=== PATIENT | female | born 1935 | race American Indian/Alaskan Native ===

== ENCOUNTER 2016-04-27 12:39 | Observation (INO) | payer MEDICARE ==
[2016-04-27 12:40] VITALS: BMI 38.2
[2016-04-27 14:41] LABS: MEAN CORPUSCULAR HGB CONC 33.1 g/dL (33.0-37.0); MONO # 0.3 K/uL (0.0-0.8)
[2016-04-27 14:51] LABS: CHLORIDE 104 mmol/L (98-107); SODIUM 140 mmol/L (132-148)
[2016-04-27 14:52] LABS: BASO # 0.1 K/uL (0.0-0.2); BASO % 1.6 % (0.0-2.0); EOS # 0.1 K/uL (0.0-0.7); EOS % 2.6 % (0.0-4.0); HEMATOCRIT 33.4 % (34.0-47.0); LYMPH # 1.6 K/uL (1.0-4.3); LYMPH % 29.4 % (20.0-40.0); MEAN PLATELET VOLUME 9.6 fL (7.2-11.7); NRBC % 0.1 % (0.0-2.0); RED CELL DISTRIBUTION WIDTH 15.8 % (11.5-14.5); WHITE BLOOD COUNT 5.3 K/uL (4.8-10.8)
[2016-04-27 14:53] LABS: ALKALINE PHOSPHATASE 63 U/L (38-126); AST/SGOT 30 U/L (14-36); BILIRUBIN,TOTAL 0.8 mg/dL (0.2-1.3); BLOOD UREA NITROGEN 14 mg/dL (7-17); CARBON DIOXIDE 27 mmol/L (22-30); CHOLESTEROL 210 mg/dL (0-199); GFR AFRICAN-AMERICAN > 60; GLUCOSE,RANDOM 68 mg/dL (65-105); TOTAL PROTEIN 7.1 g/dL (6.3-8.3)
[2016-04-27 14:54] LABS: ALT/SGPT 29 U/L (9-52); CALCIUM 8.7 mg/dl (8.6-10.4)
[2016-04-27 14:55] LABS: MEAN CELL VOLUME 84.5 fL (81.0-99.0)
--- NOTE | 2016-04-27 14:56 | CT ---
PROCEDURE: CT HEAD WITHOUT CONTRAST. HISTORY: L facial/body parasthesias x 4 days COMPARISON: Comparison CT scan 09/01/2014 TECHNIQUE: Axial computed tomography images were obtained through the head/brain without intravenous contrast. Radiation dose: Total exam DLP = 893.33 mGy-cm. FINDINGS: HEMORRHAGE: No intracranial hemorrhage. BRAIN: Suspect minimal chronic periventricular white matter ischemic changes. 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 Moderate generalized volume loss. Minor vascular calcifications present. VENTRICLES: Ex vacuo dilatation of the ventricles however no evidence of obstructive hydrocephalus. CALVARIUM: Unremarkable in the at. PARANASAL SINUSES: Unremarkable as visualized. No significant inflammatory changes. MASTOID AIR CELLS: Unremarkable as visualized. No inflammatory changes. OTHER FINDINGS: Findings consistent with mild exophthalmos. Orbits and contents otherwise appear unremarkable. IMPRESSION: No acute intracranial hemorrhage. Suspect minor chronic periventricular white matter ischemic changes.
--- NOTE | 2016-04-27 14:58 | C.PDOC ---
History Of Present Illness Patient is a 80 y/o female that presents to the ED for evaluation of left facial and left body paresthesia for the last 4 days. Patient reports being seen by her PMD 5 days ago, and was diagnosed with arthritis. Denies being prescribed any new meds. Patient also complains of left shoulder pain. Otherwise , denies any chest pain, shortness of breath, headache, dizziness, or any other associated symptoms at this time. Time Seen by Provider: 04/27/16 13:09 Chief Complaint (Nursing): Weakness/Neurological Deficit History Per: Patient History/Exam Limitations: no limitations Onset/Duration Of Symptoms: Days Current Symptoms Are (Timing): Still Present Recent travel outside of the [place]: No Additional History Per: Patient Past Medical History Reviewed: Historical Data, Nursing Documentation, Vital Signs Vital Signs: Last Vital Signs Temp 98.3 F 04/27/16 12:43 Pulse 83 04/27/16 15:17 Resp 20 04/27/16 15:17 BP 118/61 04/27/16 15:17 Pulse Ox 98 04/27/16 15:35 - Medical History PMH: Arthritis, GERD Denies: Chronic Kidney Disease Surgical History: Endoscopy - [facility] Procedures ESOPHAGOGASTRODUODENOSCOPY [EGD] W/CLOSED BIOPSY (05/03/13) Family History: States: Unknown Family Hx - Social History Hx Tobacco Use: No Hx Alcohol Use: No Hx Substance Use: No - Immunization History Hx Tetanus Toxoid Vaccination: Yes Hx Influenza Vaccination: Yes (2014) Hx Pneumococcal Vaccination: Yes (2014) Review Of Systems Except As Marked, All Systems Reviewed And Found Negative. Constitutional: Negative for: Fever, Chills Cardiovascular: Negative for: Chest Pain, Palpitations Respiratory: Negative for: Cough, Shortness of Breath Gastrointestinal: Negative for: Nausea, Vomiting, Abdominal Pain Musculoskeletal: Positive for: Shoulder Pain (left) Neurological: Positive for: Numbness (left side of body; left facial paresthesia ). Negative for: Headache, Dizziness Physical Exam - Physical Exam Appears: Non-toxic, No Acute Distress Skin: Normal Color, Warm, Dry Head: Atraumatic, Normacephalic Eye(s): bilateral: Normal Inspection, EOMI Neck: Normal ROM, Supple Chest: Symmetrical, No Tenderness Cardiovascular: Rhythm Regular, No Murmur Respiratory: Normal Breath Sounds, No Rales, No Rhonchi, No Wheezing Gastrointestinal/Abdominal: Soft, No Tenderness Extremity: Normal ROM, No Deformity, No Swelling Extremity: Bilateral: Atraumatic, Normal Color And Temperature Neurological/Psych: Oriented x3, Normal Speech, Normal Cognition, Normal Cranial Nerves, Normal Motor, Normal Sensation, Normal Reflexes, Other (neuro intact) ED Course And Treatment - Laboratory Results Result Diagrams: 04/27/16 14:28 04/27/16 14:28 Lab Interpretation: Normal (trop neg) ECG: Interpreted By Sd ECG Rhythm: Sinus Rhythm ECG Interpretation: Normal Rate From EC O2 Sat by Pulse Oximetry: 98 Pulse Ox Interpretation: Normal - Radiology CXR: Interpreted by Sd CXR Interpretation: Yes: No Acute Disease - Other Rad head CT X-Ray: Read By Radiologist (no acute findings) Progress Note: Labs, EKG, CXR, head CT ordered and reviewed. Patient was treated with Aspirin PO in the ER. Reevaluation Time: 15:15 Reassessment Condition: Unchanged (remains normal exam) - Physician Consult Information Outcome Of Conversation: 1500: d/w Dr. De Los Santos covering Dr. Minor Pink's pt's, ok to tele obs. NIHSS Stroke Scale - Date/Time Evaluation Performed Date Performed: 04/27/16 Time Performed: 13:00 - How Severe is the Stoke Level of Consciousness: 0=Alert LOC to Questions: 0=Both comments correct LOC to commands: 0=Obeys both correctly Best Gaze: 0=Normal Visual: 0=No visual loss Facial: 0=Normal Motor Arm - Left: 0=No drift Motor Arm - Right: 0=No drift Motor Leg - Left: 0=No drift Motor Leg - Right: 0=No drift Limb Ataxia: 0=Absent Sensory: 0=Normal Best Language: 0=No aphasia Dysarthia: 0=Normal articulation Extinction & Inattention (Neglect): 0=Normal, no object Score: 0 Severity Of Stroke: 0= No Stroke rTPA Inclusion/Exclusion - Refusal of Treatment Patient Refused Treatment: No - Inclusion Criteria for Altepase Patient is 18 years or Older: Yes The Clinical Diagnosis of Ischemic Stroke That is Causing a Potentially Disabling Neurological Deficit: No Time of Onset is Well Established to be Less Than 270 Minute Before Treatment Would Begin: No Risk/Benefit Discussed With Patient/Family Member Present: No - Exclusion Criteria for Altepase Uncontrolled Hypertension at Time of Treatment (Systolic BP above 185 or Diastolic BP above 110 mmHg): No Known Bleeding Diathesis Including but Not Limited to: Platelets Below 100,000/ mm,PTT Above 40 sec After Heparin Use, Current Use of Oral Anitcoagulant With INR Greater Than 1.7 or PT Greater Than 15 secs: No Evidence of an Intracranial Hemorrhage: No Evidence of Major Acute Infarct With Signs Greater Than 1/3 MCA Territory: No Suspicion of Subarachnoid Hemorrhage on Pretreatment Evaluation Even if CT Head Negative For Hemorrhage: No - Warning to TPA With Conditions Condition: Stroke Serevity Too Mild Medical Decision Making Medical Decision Makin days L facial/shoulder parasthesias h/o L shoulder arthritis- recent dx, ? related. normal neuro exam and w/u pt prefers to stay inpt for MRI and neuro consult. Disposition Doctor Will See Patient In The: Hospital Counseled Patient/Family Regarding: Studies Performed, Diagnosis - Disposition Disposition: HOSPITALIZED Disposition Time: 15:16 Condition: GOOD - Clinical Impression Clinical Impression: Facial paresthesia - Scribe Statement The provider has reviewed the documentation as recorded by the Jacob Xiao Provider Attestation: All medical record entries made by the Jacob were at my direction and personally dictated by me. I have reviewed the chart and agree that the record accurately reflects my personal performance of the history, physical exam, medical decision making, and the department course for this patient. I have also personally directed, reviewed, and agree with the discharge instructions and disposition.
[2016-04-27 15:01] LABS: RBC URINE 2 /hpf (0-3); URINE BACTERIA RARE (<OCC); URINE BILIRUBIN NEGATIVE (NEGATIVE); URINE BLOOD NEGATIVE (NEGATIVE); URINE COLOR Straw (YELLOW); URINE GLUCOSE (UA) NORMAL (Normal); URINE KETONE NEGATIVE (NEGATIVE); URINE LEUKOCYTE ESTERASE 1+ Leu/uL (Negative); URINE PROTEIN NEGATIVE (NEGATIVE); URINE UROBILINOGEN NORMAL mg/dL (0.2-1.0); WBC URINE 4 /hpf (0-5)
--- NOTE | 2016-04-27 16:56 | RAD ---
HISTORY: adm COMPARISON: Comparison chest 10/12/2016 FINDINGS: LUNGS: Poor inspiration with low lung volumes, mild crowded bronchovascular markings and mild bibasilar atelectasis left greater than right PLEURA: No significant pleural effusion identified, no pneumothorax apparent. CARDIOVASCULAR: Heart size is upper limits of normal. Aorta is slightly ectatic and uncoiled. OSSEOUS STRUCTURES: No significant abnormalities. VISUALIZED UPPER ABDOMEN: Normal. OTHER FINDINGS: None. IMPRESSION: Poor inspiration with low lung volumes, mild crowded bronchovascular markings and mild bibasilar atelectasis left greater than right
[2016-04-28] MEDS: Pantoprazole 40 mg EC Tab PO SCH (11:02)
--- NOTE | 2016-04-28 13:11 | CP.PCM.HP ---
History of Present Illness - History of Present Illness History of Present Illness: COMPREHENSIVE HISTORY & PHYSICAL EXAM HPI PRESENTED TO FOR NUMBNESS AND ALTERED SENSATION ON LEFT SIDE OF FACE AND BODY . NO DEFINITE WEAKNESS . CT HEAD NEG . NO LOC . NO SEIZURES PAST HIST. HAD SIMILAR COMPLAINTS IN 2013, ALL NEUROLOGY W/U WAS NEG. PERSONAL HIST: Smoking. N Alcohol. N Allergy N Travel_- . FAMILY HIST : ROS : Constitutional: Negative for weight change, chills, night sweats, fatigue and usage of assist device. Eyes: Negative for redness, swelling, itching, discharge, vision changes, blurry vision, double vision, glaucoma, cataracts, Ears: Negative for hearing loss, ringing, , tinnitus, vertigo Nose: Negative for rhinorrhea, stuffiness, sniffing, itching, postnasal drip, discoloration, nasal congestion and epistaxis. Throat: Negative for throat clearing, sore throat, hoarseness, difficulty swallowing and difficulty speaking. Respiratory: Negative for cough, chest tightness, sputum or phlegm, chronic cough, hemoptysis, wheezing, snoring at night, pleuritic chest pain and daytime somnolence. Cardiovascular: Negative for chest pain, palpitations, orthopnea, PND, Edema of legs, leg cramps, angina, claudication, syncope, irregular heartbeat, Neurology: Negative for irritability, muscle weakness, seizures, tremors, migraines, dizziness/vertigo, slurred speech, syncope, memory loss, mood changes , recurrent headaches Gastrointestinal: Negative for difficulty swallowing, diarrhea, constipation, black stools, rectal bleeding, nausea, flatulence, reflux, poor appetite, changes in bowel habits, abdominal pain Genitourinary: Negative for frequent urination, hematuria, discharge, incontinence, urinary retention, frequent UTI, Psychiatric: Negative for depression, anxiety/panic, suicidal tendencies, Musculoskeletal: Negative for swollen joints, back pain, , neck pain, morning stiffness of joints, . Skin: Negative for rash, ulcers, itching, dry skin and pigmented lesions. P/E: Constitutional: Appears stated age and in no apparent distress. Head: Normocephalic. Ears: External ear canals patent without inflammation. Tympanic membranes intact with normal light reflex and landmark. Eyes: Pupils are central, bilaterally equal, symmetrical and reacts to light with normal movements and no icterus or pallor. Nose: External nares are patent. Mucosa is pink Mouth-Throat: Good general appearance and condition. No post-pharyngeal/oropharyngeal erythema and tonsillar hypertrophy. Good dental hygiene. Neck-Lymphatic: Neck is supple with normal ROM, no thyromegaly, lymph nodes or masses. JVD is normal with no carotid bruit. Lungs: Clear to percussion and auscultation with bilateral normal air entry. Cardiovascular: S1 and S2 are normal with no murmurs, gallops and rub. GI Exam: No hepatomegaly. Abdomen is soft and non-tender. No Organomegaly , masses or hernias are evident and bowel sounds are normal and active. Neurology: Higher function and all cranial nerves intact, with no gross motor or sensory deficit. Superficial and deep reflexes are normal with downwards planters. No cerebellar deficit with normal gait. Musculoskeletal: No tender spots with normal curvature of the spine with no swelling or restricted ROM of the small and large joints. Extremities: Homans sign absent. Intact pulses with no pitting edema, calf tenderness or skin color changes. Skin: No rash, eruptions or abnormal skin pigmentation LAB/RADIOLOGY: ASSESMENT : 1 TIA/ SENSORY CORTEX 2 HTN 3 4 PLAN : BASE LINE NEURO W/U Present on Admission - Present on Admission Any Indicators Present on Admission: No Past Patient History - Infectious Disease Hx of Infectious Diseases: None - Past Medical History & Family History Past Medical History?: Yes - Past Social History Smoking Status: Never Smoked - CARDIAC Hx Cardiac Disorders: No - PULMONARY Hx Respiratory Disorders: No - NEUROLOGICAL Hx Neurological Disorder: No - HEENT Hx HEENT Problems: Yes Hx Cataracts: Yes (BOTH EYES) - RENAL Hx Chronic Kidney Disease: No - ENDOCRINE/METABOLIC Hx Endocrine Disorders: No - HEMATOLOGICAL/ONCOLOGICAL Hx Blood Disorders: No - INTEGUMENTARY Hx Dermatological Problems: No - MUSCULOSKELETAL/RHEUMATOLOGICAL Hx Arthritis: Yes - GASTROINTESTINAL Hx Gastrointestinal Disorders: Yes Hx Gastroesophageal Reflux: Yes HX Swallowing Problems: Yes (FOOD STuCK IN MID CHEST FEELING) - GENITOURINARY/GYNECOLOGICAL Hx Genitourinary Disorders: No - PSYCHIATRIC Hx Psychophysiologic Disorder: No Hx Substance Use: No - SURGICAL HISTORY Hx Surgeries: Yes Hx Hysterectomy: Yes Hx Joint Replacement: Yes (rt knee replacement 2004) Other/Comment: right knee replacement - ANESTHESIA Hx Anesthesia: Yes Hx Anesthesia Reactions: No Hx Malignant Hyperthermia: No Meds Allergies/Adverse Reactions: Allergies Allergy/AdvReac Type Severity Reaction Status Date / Time No Known Allergies Allergy Verified 04/27/16 12:40 Results - Vital Signs Recent Vital Signs: Last Vital Signs Temp 98.2 F 04/28/16 07:45 Pulse 93 H 04/28/16 12:38 Resp 18 04/28/16 07:45 BP 126/80 04/28/16 07:45 Pulse Ox 98 04/28/16 12:38 - Labs Result Diagrams: 04/27/16 14:28 04/27/16 14:28 Labs: Laboratory Results - last 24 hr 04/27/16 04/27/16 04/27/16 15:25 16:10 16:21 PT 10.8 INR 1.0 APTT 33 POC Glucose (mg/dL) 66 109 04/27/16 04/27/16 04/28/16 18:25 21:49 06:20 PT INR APTT POC Glucose (mg/dL) 87 108 70 04/28/16 11:53 PT INR APTT POC Glucose (mg/dL) 76
[2016-04-28] MEDS ORDERED: Gadodiamide 287 mg/ml 20 ml IV ONE (14:06)
--- NOTE | 2016-04-28 15:27 | MRI ---
PROCEDURE: MRI BRAIN WITH AND WITHOUT CONTRAST HISTORY: tia COMPARISON: None. TECHNIQUE: Multiplanar, multisequence MR images of the brain were obtained with and without intravenous contrast enhancement. FINDINGS: HEMORRHAGE: None DWI: No evidence of an acute or early subacute infarction. BRAIN PARENCHYMA: No mass,mass effect or edema. Few scattered foci of white matter signal abnormality which are nonspecific but statistically most likely secondary to microvascular ischemic disease. ENHANCEMENT: No abnormal intracranial enhancement. VENTRICLES: Unremarkable. No hydrocephalus. CRANIUM: Unremarkable. ORBITS: Grossly unremarkable. PARANASAL SINUSES/MASTOIDS: Clear VASCULAR SYSTEM: Skull base flow voids intact. OTHER FINDINGS: None . IMPRESSION: Few scattered foci of white matter signal abnormality which are nonspecific but statistically most likely secondary to microvascular ischemic disease.
[2016-04-29] MEDS: Pantoprazole 40 mg EC Tab PO SCH (09:04)
--- NOTE | 2016-04-29 11:29 | CP.PCM.PN ---
Subjective - Date & Time of Evaluation Date of Evaluation: 04/29/16 Time of Evaluation: 11:27 - Subjective Subjective: CHIEF COMPLAINTS TODAY : L. SHOULDER PAIN , UNABLE TO MOVE ROS. HEENT : N. Resp : No cough, wheezing ,pleuritic CP ,or hemoptysis Cardio : No anginal CP, PND, orthopnea, palpitation GI : No abd.pain, n/v ,diarrhea or GI bleeding . SPEECH THERAPY ASSISTANT : No headache, vertigo, focal deficit. Musculoskel : No joint swelling , LT. SH. PAIN Derm : No rash Psych : Normal affect. Ext : No swelling ,calf pain PE. Pt. is alert awake in no distress. V.S As noted in the chart Head ,ear nose,throat and eyes : Normal. Neck : Supple with normal carotids. Lungs: Clear air entry. Heart : S1 & S2 normal with S4. No murmur. Abd : Soft non tender with normal bowel sounds. Neuro : Moves all ext. with no localized deficit. Ext : No edema with intact pulses.Non tender calves L. SHOULDER MINIMAL ROM, PAINFUL Derm : No rashes or decubitus ulcer. LABS/RADIOLOGY: MRI HEAD NEG ASSESSMENT/PLAN : CHECK EEG XRAY L. SH. Objective - Vital Signs/Intake and Output Vital Signs (last 24 hours): Temp Pulse Resp BP Pulse Ox 98.0 F 92 H 19 127/73 98 04/29/16 07:24 04/29/16 08:00 04/29/16 07:24 04/29/16 07:24 04/29/16 07:24 Intake and Output: 04/28/16 04/29/16 23:59 11:59 Intake Total 600 240 Balance 600 240 - Medications Medications: Current Medications Aspirin (Aspirin) 325 mg PO DAILY [facility] Last Admin: 04/29/16 09:05 Dose: 325 mg Heparin Sodium (Porcine) (Heparin) 5,000 units SC Q12 [facility] Last Admin: 04/29/16 09:04 Dose: 5,000 units Pantoprazole Sodium (Protonix Ec Tab) 40 mg PO DAILY [facility] Last Admin: 04/29/16 09:04 Dose: 40 mg - Labs Labs: PT 10.8 SECONDS (9.7-12.2) 04/27/16 16:21 INR 1.0 04/27/16 16:21 APTT 33 SECONDS (21-34) 04/27/16 16:21
--- NOTE | 2016-04-29 12:51 | VASCLAB ---
PROCEDURE: HISTORY: TIA COMPARISON: None available. TECHNIQUE: Grayscale and duplex Doppler evaluation of the cervical carotid and vertebral arteries were performed. The common carotid, carotid bifurcations and cervical Internal Carotid Artery (ICA) and proximal External Carotid Artery (ECA) were evaluated. The vertebral arteries were evaluated for gross patency and flow direction. Report prepared by Jose Miguel Crespo, BS, RVT FINDINGS: RIGHT CAROTID ARTERIES: 1. Common Carotid Artery: No significant focal plaque formation of the right common carotid artery. Maximum Peak Systolic velocity: 75 cm/sec: End-diastolic velocity 16 cm/sec. 2. Carotid Bifurcation: Calcific plaque formation. Maximum Peak Systolic velocity: 59 cm/sec: End-diastolic velocity 15 cm/sec. 3. Internal Carotid Artery: Plaque description: 3.1. Proximal Segment: Peak systolic velocity 102 cm/sec: End-diastolic velocity 28 cm/sec - % stenosis 0-15% 3.2. Middle Segment: Peak systolic velocity 76 cm/sec: End-diastolic velocity 21 cm/sec - % stenosis 0-15% 3.3. Distal Segment: Peak systolic velocity 85 cm/sec: End-diastolic velocity 27 cm/sec - % stenosis 0-15% 4. External Carotid Artery: No significant focal plaque formation. Peak systolic velocity 59 cm/sec 5. ICA/CCA Ratio: 1.4 LEFT CAROTID ARTERIES: 1. Common Carotid Artery: No significant focal plaque formation of the left common carotid artery. Maximum Peak Systolic velocity: 95 cm/sec: End-diastolic velocity 22 cm/sec. 2. Carotid Bifurcation: Calcific plaque formation. Maximum Peak Systolic velocity: 75 cm/sec: End-diastolic velocity 16 cm/sec. 3. Internal Carotid Artery: Minimal plaque formation of the left proximal ICA which does not result in hemodynamically significant stenosis. Plaque description: Calcific 3.1. Proximal Segment: Peak systolic velocity 101 cm/sec: End-diastolic velocity 32 cm/sec - % stenosis 0-15% 3.2. Middle Segment: Peak systolic velocity 69 cm/sec: End-diastolic velocity 23 cm/sec - % stenosis 0-15% 3.3. Distal Segment: Peak systolic velocity 68 cm/sec: End-diastolic velocity 27 cm/sec - % stenosis 0-15% 4. External Carotid Artery: No significant focal plaque formation. Peak systolic velocity 98 cm/sec 5. ICA/CCA Ratio: 1.1 VERTEBRAL ARTERIES: 1. Right Vertebral Artery: The right vertebral artery flow direction is antegrade. 2. Left Vertebral Artery: The left vertebral artery flow direction is antegrade. OTHER FINDINGS: 1. Right Brachial Blood pressure: 158 mmHg. 2. Left Brachial Blood pressure: 150 mmHg. IMPRESSION: RIGHT: Duplex scan does not suggest hemodynamically significant stenosis of the right extracranial carotid arteries. LEFT: Duplex scan does not suggest hemodynamically significant stenosis of the left extracranial carotid arteries.
--- NOTE | 2016-04-29 14:13 | RAD ---
PROCEDURE: Radiographs of the Left Shoulder HISTORY: FROZEN SHOULDER COMPARISON: No prior. FINDINGS: BONES: There is diffuse bone demineralization. There is no acute fracture or bone destruction. Bone alignment is normal. There is subacromion space. JOINTS: There is mild degenerative osteoarthrosis in the acromioclavicular and glenohumeral joints. There are subarticular cystic changes in the humeral head. SOFT TISSUES: Normal. OTHER FINDINGS: None. IMPRESSION: No acute fracture or dislocation. 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 Reduced subacromion space could represent chronic rotator cuff injury.
[2016-04-29 16:03] VITALS: RESP 20
--- NOTE | 2016-04-30 08:01 | CARD ---
APPROVED REPORT EKG Measurement Heart [id number] <Conclusion> Normal sinus rhythm Minimal voltage criteria for LVH, may be normal variant Borderline ECG
[2016-04-30] MEDS: Pantoprazole 40 mg EC Tab PO SCH (10:15)
--- NOTE | 2016-04-30 13:04 | CP.PCM.DIS ---
Provider - Provider Date of Admission: 04/27/16 15:18 Attending physician: Sima De Los Santos MD Time Spent in preparation of Discharge (in minutes): 30 Hospital Course - Lab Results Lab Results: Most Recent Lab Values WBC 5.3 K/uL (4.8-10.8) 04/27/16 14:28 RBC 3.95 Mil/uL (3.80-5.20) 04/27/16 14:28 Hgb 11.1 g/dL (11.0-16.0) 04/27/16 14:28 Hct 33.4 % (34.0-47.0) L 04/27/16 14:28 MCV 84.5 fL (81.0-99.0) D 04/27/16 14:28 MCH 28.0 pg (27.0-31.0) 04/27/16 14:28 MCHC 33.1 g/dL (33.0-37.0) 04/27/16 14:28 RDW 15.8 % (11.5-14.5) H 04/27/16 14:28 Plt Count 178 K/uL (130-400) 04/27/16 14:28 MPV 9.6 fL (7.2-11.7) 04/27/16 14:28 Neut % (Auto) 60.4 % (50.0-75.0) 04/27/16 14:28 Lymph % (Auto) 29.4 % (20.0-40.0) 04/27/16 14:28 Sanders % (Auto) 6.0 % (0.0-10.0) 04/27/16 14:28 Eos % (Auto) 2.6 % (0.0-4.0) 04/27/16 14:28 Baso % (Auto) 1.6 % (0.0-2.0) 04/27/16 14:28 Neut # 3.2 K/uL (1.8-7.0) 04/27/16 14:28 Lymph # 1.6 K/uL (1.0-4.3) 04/27/16 14:28 Sanders # 0.3 K/uL (0.0-0.8) 04/27/16 14:28 Eos # 0.1 K/uL (0.0-0.7) 04/27/16 14:28 Baso # 0.1 K/uL (0.0-0.2) 04/27/16 14:28 PT 10.8 SECONDS (9.7-12.2) 04/27/16 16:21 INR 1.0 04/27/16 16:21 APTT 33 SECONDS (21-34) 04/27/16 16:21 Sodium 140 mmol/L (132-148) 04/27/16 14:28 Potassium 5.0 mmol/L (3.6-5.2) 04/27/16 14:28 Chloride 104 mmol/L (98-107) 04/27/16 14:28 Carbon Dioxide 27 mmol/L (22-30) 04/27/16 14:28 Anion Gap 14 (10-20) 04/27/16 14:28 BUN 14 mg/dL (7-17) 04/27/16 14:28 Creatinine 0.8 MG/DL (0.7-1.2) 04/27/16 14:28 Est GFR ( Amer) > 60 04/27/16 14:28 Est GFR (Non-Af Amer) > 60 04/27/16 14:28 POC Glucose (mg/dL) 89 mg/dL (65-110) 04/30/16 11:26 Random Glucose 68 mg/dL (65-105) 04/27/16 14:28 Hemoglobin A1c 5.4 % (4.2-6.5) 04/27/16 14:28 Calcium 8.7 mg/dl (8.6-10.4) 04/27/16 14:28 Total Bilirubin 0.8 mg/dL (0.2-1.3) 04/27/16 14:28 AST 30 U/L (14-36) 04/27/16 14:28 ALT 29 U/L (9-52) 04/27/16 14:28 Alkaline Phosphatase 63 U/L (38-126) 04/27/16 14:28 Troponin I < 0.0120 ng/mL (0.00-0.120) 04/27/16 14:28 Total Protein 7.1 g/dL (6.3-8.3) 04/27/16 14:28 Albumin 3.5 g/dL (3.5-5.0) 04/27/16 14:28 Globulin 3.6 gm/dL (2.2-3.9) 04/27/16 14:28 Albumin/Globulin Ratio 1.0 (1.0-2.1) 04/27/16 14:28 Triglycerides 50 mg/dL (0-149) 04/27/16 14:28 Cholesterol 210 mg/dL (0-199) H 04/27/16 14:28 LDL Cholesterol Direct 103 mg/dL (0-129) 04/27/16 14:28 HDL Cholesterol 60 mg/dL (30-70) 04/27/16 14:28 Urine Color Straw (YELLOW) 04/27/16 14:28 Urine Clarity Hazy (Clear) 04/27/16 14:28 Urine pH 7.0 (5.0-8.0) 04/27/16 14:28 Ur Specific [place] 1.010 (1.003-1.030) 04/27/16 14:28 Urine Protein Negative mg/dL (NEGATIVE) 04/27/16 14:28 Urine Glucose (UA) Normal mg/dL (Normal) 04/27/16 14:28 Urine Ketones Negative mg/dL (NEGATIVE) 04/27/16 14:28 Urine Blood Negative (NEGATIVE) 04/27/16 14:28 Urine Nitrate Negative (NEGATIVE) 04/27/16 14:28 Urine Bilirubin Negative (NEGATIVE) 04/27/16 14:28 Urine Urobilinogen Normal mg/dL (0.2-1.0) 04/27/16 14:28 Ur Leukocyte Esterase 1+ Kedar/uL (Negative) H 04/27/16 14:28 Urine WBC (Auto) 4 /hpf (0-5) 04/27/16 14:28 Urine RBC (Auto) 2 /hpf (0-3) 04/27/16 14:28 Ur Squamous Epith Cells 7 /hpf (0-5) H 04/27/16 14:28 Urine Bacteria Rare (<OCC) 04/27/16 14:28 - Hospital Course Hospital Course: PRESENTED TO FOR NUMBNESS AND ALTERED SENSATION ON LEFT SIDE OF FACE AND BODY . NO DEFINITE WEAKNESS . CT HEAD NEG . NO LOC . NO SEIZURES PAST HIST. HAD SIMILAR COMPLAINTS IN 2013, ALL NEUROLOGY W/U WAS NEG. CT/MRI/CAROTID U/S WERE NEGATIVE FOR ANY ACUTE PATHOLOGY L. SHOULDER X RAY SHOWED POSSIBLE TENDON RUPTURE PLAN D/C HOME OUT PT PT FOR L. SHOULDER Discharge Plan - Follow Up Plan Condition: GOOD Disposition: HOME/ ROUTINE
--- NOTE | 2016-04-30 13:18 | CP.PCM.PN ---
Objective - Vital Signs/Intake and Output Vital Signs (last 24 hours): Temp Pulse Resp BP Pulse Ox 97.8 F 87 20 119/75 100 04/30/16 07:57 04/30/16 08:05 04/30/16 07:57 04/30/16 07:57 04/30/16 07:57 Intake and Output: 04/30/16 04/30/16 06:59 18:59 Intake Total 240 Balance 240 - Medications Medications: Current Medications Aspirin (Aspirin) 325 mg PO DAILY [facility] Last Admin: 04/30/16 10:14 Dose: 325 mg Heparin Sodium (Porcine) (Heparin) 5,000 units SC Q12 [facility] Last Admin: 04/30/16 10:15 Dose: 5,000 units Pantoprazole Sodium (Protonix Ec Tab) 40 mg PO DAILY [facility] Last Admin: 04/30/16 10:15 Dose: 40 mg - Labs Labs: PT 10.8 SECONDS (9.7-12.2) 04/27/16 16:21 INR 1.0 04/27/16 16:21 APTT 33 SECONDS (21-34) 04/27/16 16:21
[2016-04-30 16:07] VITALS: BP 106/70; PULSE 97; TEMP 97.4; O2SAT 96
== END 2016-04-30 17:30 | disposition home or self-care (01) ==
LOC: C.ER 12:39 → C.9E 15:18 → C.6T 17:58
PROVIDERS: ADMIT Internal Medicine Cardiovascular Disease; ATTEND Internal Medicine Cardiovascular Disease
DX: R20.9 Unspecified disturbances of skin sensation (principal); I10 Essential (primary) hypertension; Z68.38 Body mass index [BMI] 38.0-38.9, adult
CPT/HCPCS: 70450; 70553; 71010; 73030; 80053; 80061; 81001; 82948; 83036; 84484; 85025; 85610; 85730; 93005; 93880; 95812; 97110; 97116; 97162; 97166; 97530; 99285; A9579; G0378; G8978; G8979; G8987; G8988; J1644

== ENCOUNTER 2016-07-23 11:41 | Emergency (ER) | payer MEDICARE ==
[2016-07-23 11:41] VITALS: BMI 38.2
[2016-07-23] MEDS ORDERED: Sodium Chloride 0.9% 500 ML IV ONE ×2 (12:38→13:33)
--- NOTE | 2016-07-23 12:39 | C.PDOC ---
History Of Present Illness 80 year old patient, with a past medical history of arthritis and GERD, presents to the ED complaining of dizziness, weakness, and room spinning sensation since last night. Patient states her symptoms occur with movement of her head. Patient denies facial droop, slurred speech, extremity weakness, shortness of breath, chest pain, cough or fever. Time Seen by Provider: 07/23/16 11:58 Chief Complaint (Nursing): Dizziness/Lightheaded History Per: Patient History/Exam Limitations: no limitations Onset/Duration Of Symptoms: Days (last night) Current Symptoms Are (Timing): Still Present Activity At Onset Of Symptoms: Change In Head Position Fall Associated With With Symptoms: No Past Medical History Reviewed: Historical Data, Nursing Documentation, Vital Signs Vital Signs: Last Vital Signs Temp 98.1 F 07/23/16 11:47 Pulse 100 H 07/23/16 11:47 Resp 18 07/23/16 11:47 BP 133/76 07/23/16 11:47 Pulse Ox 99 07/23/16 15:12 - Medical History PMH: Arthritis, GERD Surgical History: Endoscopy - [facility] Procedures ESOPHAGOGASTRODUODENOSCOPY [EGD] W/CLOSED BIOPSY (05/03/13) Family History: States: No Known Family Hx - Social History Hx Tobacco Use: No Hx Alcohol Use: No Hx Substance Use: No - Immunization History Hx Tetanus Toxoid Vaccination: Yes Hx Influenza Vaccination: Yes (2014) Hx Pneumococcal Vaccination: Yes (2014) Review Of Systems Except As Marked, All Systems Reviewed And Found Negative. Constitutional: Positive for: Weakness. Negative for: Fever Cardiovascular: Negative for: Chest Pain Respiratory: Negative for: Cough, Shortness of Breath Neurological: Positive for: Dizziness. Negative for: Weakness, Numbness, Change in Speech Physical Exam - Physical Exam Appears: Non-toxic, No Acute Distress, Other (comfortable) Skin: Warm, Dry Head: Atraumatic, Normacephalic Eye(s): bilateral: Normal Inspection, PERRL, EOMI Ear(s): Bilateral: Normal Nose: Normal Oral Mucosa: Moist Throat: Normal Neck: Normal ROM, Supple Chest: Symmetrical Cardiovascular: Rhythm Regular Respiratory: Normal Breath Sounds, No Rales, No Rhonchi, No Wheezing Gastrointestinal/Abdominal: Soft, No Tenderness Back: Normal Inspection Extremity: Normal ROM, No Pedal Edema, No Calf Tenderness Neurological/Psych: Oriented x3, Normal Speech, Normal Cognition, Normal Cranial Nerves, Normal Motor, Normal Sensation ED Course And Treatment - Laboratory Results Result Diagrams: 07/23/16 12:54 07/23/16 12:54 O2 Sat by Pulse Oximetry: 99 (room air) Pulse Ox Interpretation: Normal - CT Scan/US ct head Other Rad Studies (CT/US): Read By Radiologist, Radiology Report Reviewed CT/US Interpretation: Accession No. : [id number]. Patient Name / ID : TAMMY MOMIN / [id number]. Exam Date : 07/23/2016 13:07:49 ( Approved ). Study Comment : Sex / Age : F / [id number]. Creator : Luis A Leary MD. Dictator : Luis A Leary MD. Soap Boiler : Director It : Luis A Leary MD. Approver2 : Report Date : 07/23/2016 13:48:49. My Comment : . PROCEDURE: CT HEAD WITHOUT CONTRAST. HISTORY: dizziness, vertigo, headache. COMPARISON : Comparison made with CT scan brain 04/27/2016. TECHNIQUE: Axial computed tomography images were obtained through the head/brain without intravenous contrast. Radiation dose: Total exam DLP = 799.7 mGy-cm. This CT exam was performed using one or more of the following dose reduction techniques: Automated exposure control, adjustment of the mA and/or kV according to patient size, and/or use of iterative reconstruction technique. FINDINGS: HEMORRHAGE: No acute parenchymal, subarachnoid or extra-axial hemorrhage. BRAIN: Suspect minimal chronic periventricular white matter ischemic changes. In addition, there also appear to be some minor scattered subcortical white matter ischemic changes. No obvious parenchymal nor extra-axial mass or collection identified on this noncontrast study. . Mild vascular calcifications are present. VENTRICLES: No obstructive hydrocephalus. CALVARIUM: Acute calvarial fractures. PARANASAL SINUSES: Visualized paranasal sinuses are well- developed and and currently well-aerated. Mastoid air complexes are also well- developed and currently well-aerated. OTHER FINDINGS: None. IMPRESSION: No acute intracranial hemorrhage. Suspect minimal chronic periventricular white matter ischemic changes. In addition, there also appear to be some minor scattered subcortical white matter ischemic changes Progress Note: EKG was done. Head CT was taken. Labs were sent. Patient was given Antivert and IV fluids. Disposition Counseled Patient/Family Regarding: Diagnosis, Need For Followup - Disposition Referrals: Donn Benitez MD [Staff Provider] - Disposition: HOME/ ROUTINE Disposition Time: 15:15 Condition: STABLE Additional Instructions: FOLLOW UP WITH ENT SPECIALIST WITHIN 1 WEEK USE MEDICATION NEEDED RETURN TO ER IF SYMPTOMS WORSEN Prescriptions: Meclizine [Meclizine*] 25 mg PO Q6 PRN #20 tab PRN Reason: Dizziness Instructions: Benign Paroxysmal Positional Vertigo (ED) Print Language: KINYARWANDA - POA Present On Arrival: None - Clinical Impression Clinical Impression: Peripheral vertigo - Scribe Statement The provider has reviewed the documentation as recorded by the Scribjerrell Xiao Provider Attestation: All medical record entries made by the Scribe were at my direction and personally dictated by me. I have reviewed the chart and agree that the record accurately reflects my personal performance of the history, physical exam, medical decision making, and the department course for this patient. I have also personally directed, reviewed, and agree with the discharge instructions and disposition.
[2016-07-23 13:00] LABS: BASO # 0.1 K/uL (0.0-0.2); BASO % 1.2 % (0.0-2.0); EOS # 0.2 K/uL (0.0-0.7); EOS % 3.4 % (0.0-4.0); HEMATOCRIT 32.5 % (34.0-47.0); LYMPH # 1.6 K/uL (1.0-4.3); LYMPH % 35.9 % (20.0-40.0); MEAN CORPUSCULAR HEMOGLOBIN 26.7 pg (27.0-31.0); MEAN CORPUSCULAR HGB CONC 32.5 g/dL (33.0-37.0); MEAN PLATELET VOLUME 8.5 fL (7.2-11.7); MONO # 0.4 K/uL (0.0-0.8); RED CELL DISTRIBUTION WIDTH 16.1 % (11.5-14.5); WHITE BLOOD COUNT 4.5 K/uL (4.8-10.8)
[2016-07-23 13:06] LABS: MEAN CELL VOLUME 82.2 fL (81.0-99.0)
[2016-07-23 13:29] LABS: CHLORIDE 106 mmol/L (98-107); POTASSIUM 4.5 mmol/L (3.6-5.2); SODIUM 139 mmol/L (132-148)
[2016-07-23 13:31] LABS: ALKALINE PHOSPHATASE 93 U/L (38-126); AST/SGOT 25 U/L (14-36); BILIRUBIN,TOTAL 0.6 mg/dL (0.2-1.3); CARBON DIOXIDE 24 mmol/L (22-30); GFR AFRICAN-AMERICAN > 60; TOTAL PROTEIN 6.8 g/dL (6.3-8.3)
[2016-07-23 13:32] LABS: ALT/SGPT 28 U/L (9-52); BLOOD UREA NITROGEN 16 mg/dL (7-17); CALCIUM 8.5 mg/dl (8.6-10.4); GLUCOSE,RANDOM 79 mg/dL (65-105)
--- NOTE | 2016-07-23 13:50 | CT ---
PROCEDURE: CT HEAD WITHOUT CONTRAST. HISTORY: dizziness, vertigo, headache COMPARISON: Comparison made with CT scan brain 04/27/2016 TECHNIQUE: Axial computed tomography images were obtained through the head/brain without intravenous contrast. Radiation dose: Total exam DLP = 799.7 mGy-cm. This CT exam was performed using one or more of the following dose reduction techniques: Automated exposure control, adjustment of the mA and/or kV according to patient size, and/or use of iterative reconstruction technique. FINDINGS: HEMORRHAGE: No acute parenchymal, subarachnoid or extra-axial hemorrhage. BRAIN: Suspect minimal chronic periventricular white matter ischemic changes. In addition, there also appear to be some minor scattered subcortical white matter ischemic changes. No obvious parenchymal nor extra-axial mass or collection identified on this noncontrast study. . Mild vascular calcifications are present. VENTRICLES: No obstructive hydrocephalus CALVARIUM: Acute calvarial fractures. PARANASAL SINUSES: Visualized paranasal sinuses are well-developed and and currently well-aerated. Mastoid air complexes are also well-developed and currently well-aerated. OTHER FINDINGS: None. IMPRESSION: No acute intracranial hemorrhage. Suspect minimal chronic periventricular white matter ischemic changes. In addition, there also appear to be some minor scattered subcortical white matter ischemic changes
[2016-07-23 13:56] LABS: RBC URINE < 1 /hpf (0-3); URINE BACTERIA RARE (<OCC); URINE BILIRUBIN NEGATIVE (NEGATIVE); URINE BLOOD NEGATIVE (NEGATIVE); URINE COLOR Yellow (YELLOW); URINE GLUCOSE (UA) NORMAL (Normal); URINE HYALINE CAST 0-2 /lpf (0-2); URINE KETONE NEGATIVE (NEGATIVE); URINE LEUKOCYTE ESTERASE TRACE Leu/uL (Negative); URINE PROTEIN NEGATIVE (NEGATIVE); URINE UROBILINOGEN NORMAL mg/dL (0.2-1.0); WBC URINE 3 /hpf (0-5)
[2016-07-23 15:41] VITALS: BP 116/73; PULSE 83; RESP 16; TEMP 97.7; O2SAT 98
--- NOTE | 2016-07-24 23:19 | CARD ---
APPROVED REPORT EKG Measurement Heart [id number] <Conclusion> Normal sinus rhythm Normal ECG
== END 2016-07-23 15:41 | disposition home or self-care (01) ==
LOC: C.ER 11:41
DX: H81.399 Other peripheral vertigo, unspecified ear (principal)
CPT/HCPCS: 70450; 80053; 81001; 82550; 82553; 84484; 85025; 85610; 85730; 87086; 93005; 99285; J7040

== ENCOUNTER 2016-10-17 13:10 | Observation (INO) | payer MEDICARE ==
[2016-10-17 13:10] VITALS: BMI 38.2
[2016-10-17 14:09] LABS: BASO # 0.1 K/uL (0.0-0.2); BASO % 0.8 % (0.0-2.0); EOS # 0.1 K/uL (0.0-0.7); EOS % 2.1 % (0.0-4.0); HEMATOCRIT 34.8 % (34.0-47.0); LYMPH # 2.3 K/uL (1.0-4.3); LYMPH % 35.7 % (20.0-40.0); MEAN CELL VOLUME 80.6 fL (81.0-99.0); MEAN CORPUSCULAR HEMOGLOBIN 26.8 pg (27.0-31.0); MEAN CORPUSCULAR HGB CONC 33.3 g/dL (33.0-37.0); MEAN PLATELET VOLUME 8.9 fL (7.2-11.7); MONO # 0.4 K/uL (0.0-0.8); WHITE BLOOD COUNT 6.5 K/uL (4.8-10.8)
--- NOTE | 2016-10-17 14:09 | RAD ---
HISTORY: adm COMPARISON: Chest x-ray performed 04/27/16 TECHNIQUE: Chest, one view. FINDINGS: Examination limited by habitus. LUNGS: Mild atelectasis at the left lung base. Please note that chest x-ray has limited sensitivity for the detection of pulmonary masses. PLEURA: No significant pleural effusion identified. No definite pneumothorax . CARDIOVASCULAR: Heart size appears within normal limits. Dense atherosclerotic calcification of the aortic knob. OSSEOUS STRUCTURES: Osseous demineralization. Degenerative changes. VISUALIZED UPPER ABDOMEN: Unremarkable. OTHER FINDINGS: None. IMPRESSION: Mild atelectasis at the left lung base.
--- NOTE | 2016-10-17 14:09 | C.PDOC ---
History Of Present Illness Patient is a 81 year old female presents to ED for evaluation of sharp left sided chest pain radiating to right side of chest for the last 3 days. Notes that nothing makes the pain worse or better. Pt complaints of numbness and heaviness in her head. Pt also reports numbness and tingling sensation to bilateral arms. Otherwise, denies any cough, shortness of breath, palpitations, sensory changes, visual changes, fever, chills, or any other associated symptoms at this time. Time Seen by Provider: 10/17/16 13:21 Chief Complaint (Nursing): Dizziness/Lightheaded History Per: Patient History/Exam Limitations: no limitations Onset/Duration Of Symptoms: Days Current Symptoms Are (Timing): Still Present Recent travel outside of the [place]: No Additional History Per: Patient Past Medical History Reviewed: Historical Data, Nursing Documentation, Vital Signs Vital Signs: Last Vital Signs Temp 97.9 F 10/17/16 13:14 Pulse 88 10/17/16 15:14 Resp 20 10/17/16 15:14 BP 133/53 L 10/17/16 15:14 Pulse Ox 99 10/17/16 17:18 - Medical History PMH: Arthritis, GERD, Hypercholesterolemia Surgical History: Endoscopy - [facility] Procedures ESOPHAGOGASTRODUODENOSCOPY [EGD] W/CLOSED BIOPSY (05/03/13) Family History: States: Unknown Family Hx - Social History Hx Tobacco Use: No Hx Alcohol Use: No Hx Substance Use: No - Immunization History Hx Tetanus Toxoid Vaccination: Yes Hx Influenza Vaccination: No (2014) Hx Pneumococcal Vaccination: Yes (2014) Review Of Systems Except As Marked, All Systems Reviewed And Found Negative. Constitutional: Negative for: Fever, Chills Cardiovascular: Positive for: Chest Pain. Negative for: Palpitations, Light Headedness Respiratory: Negative for: Cough, Shortness of Breath Gastrointestinal: Negative for: Nausea, Vomiting Musculoskeletal: Negative for: Back Pain Neurological: Positive for: Numbness (arms), Headache. Negative for: Weakness, Dizziness Physical Exam - Physical Exam Appears: Non-toxic, No Acute Distress Skin: Normal Color, Warm, Dry Head: Atraumatic, Normacephalic Eye(s): bilateral: Normal Inspection Oral Mucosa: Moist Neck: Normal ROM, Supple Chest: Symmetrical, Tenderness (digitally reproducible b/l parasternal chest tenderness ) Cardiovascular: Rhythm Regular, No Murmur Respiratory: Normal Breath Sounds, No Rales, No Rhonchi, No Wheezing Gastrointestinal/Abdominal: Soft, No Tenderness Extremity: Normal ROM Neurological/Psych: Oriented x3, Normal Speech, Normal Cognition, No Other (no neurological deficits) ED Course And Treatment - Laboratory Results Result Diagrams: 10/17/16 14:01 10/17/16 14:01 Lab Interpretation: Normal (ua neg, trop neg.) ECG: Interpreted By Me ECG Rhythm: Sinus Rhythm ECG Interpretation: Normal Rate From EC O2 Sat by Pulse Oximetry: 99 (on RA) Pulse Ox Interpretation: Normal - Radiology CXR: Interpreted by Me CXR Interpretation: Yes: No Acute Disease - CT Scan/US Head CT Other Rad Studies (CT/US): Radiology Report Reviewed (neg) Reevaluation Time: 15:32 Reassessment Condition: Improved - Physician Consult Information Outcome Of Conversation: 1530: d/w Dr. Zendejas- covering Dr. De Los Santos- PMD- ok to Tele Obs. Medical Decision Making Medical Decision Making: Though pt lives @ assisted living for geriatrics and feel stable in her gait, she is uncomfortable returning there without "resolving why I sometimes feel a little dizzy." Consider cardia etiologies of dizziness where tele obs may find tachy/naveed arrthymias. Chest wall discomfort is positionally and digitally reproducable @ b/l parasternal areas c/w Costochondritis, NSAIDS and Ice packs trialed and should continue, though h/o GERD may be symptomatic, continue PPI/maalox as need to trial empiric treatment. Disposition Doctor Will See Patient In The: Hospital Counseled Patient/Family Regarding: Studies Performed, Diagnosis - Disposition Disposition: HOSPITALIZED Disposition Time: 15:34 Condition: GOOD - Clinical Impression Clinical Impression: Dizziness, Chest wall discomfort - Scribe Statement The provider has reviewed the documentation as recorded by the Macyibjerrell Xiao All medical record entries made by the Macyibe were at my direction and personally dictated by me. I have reviewed the chart and agree that the record accurately reflects my personal performance of the history, physical exam, medical decision making, and the department course for this patient. I have also personally directed, reviewed, and agree with the discharge instructions and disposition.
[2016-10-17 14:21] LABS: ALKALINE PHOSPHATASE 94 U/L (38-126); ALT/SGPT 27 U/L (9-52); AST/SGOT 21 U/L (14-36); BILIRUBIN,TOTAL 0.5 mg/dL (0.2-1.3); BLOOD UREA NITROGEN 15 mg/dL (7-17); CALCIUM 9.3 mg/dl (8.6-10.4); CARBON DIOXIDE 23 mmol/L (22-30); CHLORIDE 106 mmol/L (98-107); CHOLESTEROL 179 mg/dL (0-199); GFR AFRICAN-AMERICAN > 60; GLUCOSE,RANDOM 89 mg/dL (65-105); POTASSIUM 4.1 mmol/L (3.6-5.2); SODIUM 144 mmol/L (132-148)
--- NOTE | 2016-10-17 14:36 | CT ---
PROCEDURE: CT HEAD WITHOUT CONTRAST. HISTORY: dizzy, h/o CVA COMPARISON: Noncontrast head CT performed 07/23/16 TECHNIQUE: Axial computed tomography images were obtained through the head/brain without intravenous contrast. Radiation dose: Total exam DLP = 768.98 MGy-cm. This CT exam was performed using one or more of the following dose reduction techniques: Automated exposure control, adjustment of the mA and/or kV according to patient size, and/or use of iterative reconstruction technique. FINDINGS: HEMORRHAGE: No intracranial hemorrhage. BRAIN: Diffuse atrophy with prominence of the ventricles and sulci noted. No mass effect or edema. Intracranial atherosclerosis. Mild scattered nonspecific white matter changes. Please note that MRI with diffusion imaging is more sensitive in the detection of acute ischemic event. VENTRICLES: No hydrocephalus. CALVARIUM: Unremarkable. PARANASAL SINUSES: Unremarkable as visualized. No significant inflammatory changes. MASTOID AIR CELLS: Unremarkable as visualized. No inflammatory changes. OTHER FINDINGS: None. IMPRESSION: No acute intracranial pathology identified. Mild generalized atrophy. Mild nonspecific white matter changes.
[2016-10-17 14:55] LABS: RBC URINE < 1 /hpf (0-3); URINE BILIRUBIN NEGATIVE (NEGATIVE); URINE BLOOD NEGATIVE (NEGATIVE); URINE COLOR Yellow (YELLOW); URINE GLUCOSE (UA) NORMAL (Normal); URINE KETONE NEGATIVE (NEGATIVE); URINE LEUKOCYTE ESTERASE TRACE Leu/uL (Negative); URINE PROTEIN NEGATIVE (NEGATIVE); URINE UROBILINOGEN NORMAL mg/dL (0.2-1.0); WBC URINE 2 /hpf (0-5)
--- NOTE | 2016-10-17 18:21 | CP.PCM.HP ---
History of Present Illness - History of Present Illness History of Present Illness: pt is seen and examined, H & P is dictated #[id number] Present on Admission - Present on Admission Any Indicators Present on Admission: No History of DVT/PE: No History of Uncontrolled Diabetes: No Urinary Catheter: No Decubitus Ulcer Present: No Past Patient History - Infectious Disease Hx of Infectious Diseases: None - Past Medical History & Family History Past Medical History?: Yes - Past Social History Smoking Status: Never Smoked - CARDIAC Hx Hypercholesterolemia: Yes - PULMONARY Hx Respiratory Disorders: No - NEUROLOGICAL Hx Neurological Disorder: No - HEENT Hx HEENT Problems: Yes Hx Cataracts: Yes (BOTH EYES) - RENAL Hx Chronic Kidney Disease: No - ENDOCRINE/METABOLIC Hx Endocrine Disorders: No - HEMATOLOGICAL/ONCOLOGICAL Hx Blood Disorders: No - INTEGUMENTARY Hx Dermatological Problems: No - MUSCULOSKELETAL/RHEUMATOLOGICAL Hx Arthritis: Yes - GASTROINTESTINAL Hx Gastrointestinal Disorders: Yes Hx Gastroesophageal Reflux: Yes Hx Ulcer: Yes - GENITOURINARY/GYNECOLOGICAL Hx Genitourinary Disorders: No - PSYCHIATRIC Hx Substance Use: No - SURGICAL HISTORY Other/Comment: "ULCER SX" - ANESTHESIA Hx Anesthesia: Yes Hx Anesthesia Reactions: No Hx Malignant Hyperthermia: No Meds Allergies/Adverse Reactions: Allergies Allergy/AdvReac Type Severity Reaction Status Date / Time No Known Allergies Allergy Verified 10/17/16 13:13 Results - Vital Signs Recent Vital Signs: Last Vital Signs Temp 97.9 F 10/17/16 13:14 Pulse 85 10/17/16 17:41 Resp 16 10/17/16 17:41 BP 122/68 10/17/16 17:41 Pulse Ox 97 10/17/16 17:41 - Labs Result Diagrams: 10/17/16 14:01 10/17/16 14:01
[2016-10-18 07:01] LABS: BASO % 0.8 % (0.0-2.0); EOS # 0.2 K/uL (0.0-0.7); EOS % 2.7 % (0.0-4.0); HEMATOCRIT 33.3 % (34.0-47.0); LYMPH % 35.9 % (20.0-40.0); MEAN CORPUSCULAR HEMOGLOBIN 26.9 pg (27.0-31.0); MEAN CORPUSCULAR HGB CONC 33.2 g/dL (33.0-37.0); MEAN PLATELET VOLUME 8.8 fL (7.2-11.7); MONO # 0.5 K/uL (0.0-0.8); MONO % 8.3 % (0.0-10.0); RED CELL DISTRIBUTION WIDTH 17.3 % (11.5-14.5); WHITE BLOOD COUNT 5.6 K/uL (4.8-10.8)
[2016-10-18 07:22] LABS: BLOOD UREA NITROGEN 18 mg/dL (7-17); CARBON DIOXIDE 26 mmol/L (22-30); CHLORIDE 105 mmol/L (98-107); CHOLESTEROL 160 mg/dL (0-199); GFR AFRICAN-AMERICAN > 60; GLUCOSE,RANDOM 85 mg/dL (65-105); POTASSIUM 4.4 mmol/L (3.6-5.2); SODIUM 142 mmol/L (132-148)
--- NOTE | 2016-10-18 08:48 | HP ---
The patient is seen and examined for Dr. Rashida Evans, who is covering Dr. De Los Santos. LOCATION: Room 664, bed B. HISTORY OF PRESENT ILLNESS: The patient is an 81-year-old very pleasant, obese female with a past medical history significant for hyperlipidemia, GERD, osteoarthritis, status post right knee replacement, who was admitted with a chief complaint of left-sided frontal headache for 3 days. As per the patient, the headache is on and off, sometimes she wakes up during sleep and usually the pain lasts for 1 to 2 hours, relieved spontaneously. The patient does complain of occasional nausea, denies any vomiting, denies any chest pain, palpitation. Denies any radiation of the pain. No abdominal pain, no cough, no shortness of breath. The patient also complains of dizziness for 3 days. The patient claims that she is wobbly when she tried to walk. PAST MEDICAL HISTORY: Significant for hyperlipidemia, questionable TIA, similar complaints in the past. Denies hypertension. Denies diabetes. Denies any CVA. Denies any coronary artery disease. Significant for osteoarthritis, GERD. PAST SURGICAL HISTORY: Significant for total knee replacement on the right side in 2004 and partial hysterectomy in 2010 and gastric surgery in 1981. SOCIAL HISTORY: Denies any smoking, alcohol, drugs. PERSONAL HISTORY: She is a . She has 5 children and she lives in a senior citizen building and supervised by the family. Both parents are . CURRENT MEDICATIONS: Include as follows, atorvastatin 10 mg at bedtime and Protonix 40 mg p.o. daily, Meloxicam 15 mg p.o. daily. IMMUNIZATION HISTORY: The patient received Pneumococcal vaccine in 2014. REVIEW OF SYSTEMS: Significant for left-sided frontal headache and slight dizziness. All other review of systems are reviewed and are negative. PHYSICAL EXAMINATION VITAL SIGNS: Blood pressure 124/76, pulse 84, respirations 20, temperature 97.8, saturation 98%. Height 5 feet 5 inches and weight is 230 pounds. GENERAL: The patient is an 81-year-old elderly obese female, moderately built, moderately nourished, not in distress. HEENT: Pupils normal and reactive to light and accommodation. Conjunctivae pink. Sclerae anicteric. Tongue is moist and trachea is midline. CVS: S1, S2 audible. No murmur, no gallop. [place] at the fifth intercostal space, half inch middle to midclavicular line. LUNGS: Symmetric on both sides. Bilateral breath sounds present. ABDOMEN: Normal in appearance. The patient has a midline scar present from the xiphisternum along the umbilicus and another scar from the umbilicus to the symphysis pubis. Abdomen is soft, tympanic. No guarding. No rigidity. No hepatosplenomegaly. No abdominal bruit. [employer]: The patient is alert, awake, oriented x3. Nonfocal. Cranial nerves II through XII grossly intact. Sensory and motor system is within normal limits. EXTREMITIES: No cyanosis, no clubbing, no edema. LABORATORY DATA: Include as follows, as of 10/17/2016, WBC 6.5, hemoglobin 11.6, hematocrit 34.8, platelets 217. PT 11.5, PTT 29. Sodium 144, potassium 4.1, chloride 106, CO2 of 23, BUN 15, creatinine 0.8, glucose 98, calcium 9.3, hemoglobin A1c 5.3. Total bilirubin 0.5, AST 21, ALT 27, alkaline phosphatase 94. Troponin 0.012 and proBNP 128. Total protein 7, albumin is 3.5. Cholesterol 179, LDL is 100, HDL is 59, triglycerides 49. Urinalysis, yellow, clear, pH 6, specific gravity 1.012, protein negative, glucose normal, ketones negative, blood is negative, nitrites negative, bilirubin negative, urobilinogen is normal, leukocyte esterase trace, wbc 2, rbc less than 1, squamous epithelial is 2. Other reports are chest x-ray as of 10/17/2016, impression, mild atelectasis at the left lung base and CT of the head as of 10/17/2016, impression, no acute intracranial pathology identified, mild generalized atrophy, mild nonspecific white matter changes. In summary, the patient is an 81-year-old elderly obese female with a history of hyperlipidemia, GERD, was admitted with a left frontal headache for 3 days, on and off associated with some nausea and dizziness. 1. Rule out TIA. 2. Headache, etiology is not clear. 3. Dizziness. 4. GERD, continue Lipitor 10 mg p.o. daily and Protonix and also continue meloxicam. Neurology consult with Dr. Monteiro and Dr. Hernadez to evaluate, and if the patient is cleared by neurology, we will consider to discharge the patient. The patient was seen and examined and dictated for Dr. Rashida Evans. Shiraz Evans MD
[2016-10-18 08:55] VITALS: O2SAT 98
--- NOTE | 2016-10-18 09:24 | CP.PCM.PN ---
Subjective - Date & Time of Evaluation Date of Evaluation: 10/18/16 Time of Evaluation: 09:15 - Subjective Subjective: Discharge summary dictated #[id number] Objective - Vital Signs/Intake and Output Vital Signs (last 24 hours): Temp Pulse Resp BP Pulse Ox 98.4 F 79 18 102/56 L 98 10/18/16 07:30 10/18/16 07:30 10/18/16 07:30 10/18/16 07:30 10/18/16 07:30 - Medications Medications: Current Medications Meclizine HCl (Antivert) 25 mg PO Q8 [facility] Last Admin: 10/18/16 05:32 Dose: 25 mg Pantoprazole Sodium (Protonix Ec Tab) 40 mg PO DAILY [facility] Last Admin: 10/18/16 09:01 Dose: 40 mg Rosuvastatin Calcium (Crestor) 5 mg PO HS [facility] Last Admin: 10/18/16 00:00 Dose: 5 mg - Labs Labs: 10/18/16 06:55 10/18/16 06:55 PT 11.6 SECONDS (9.7-12.2) 10/18/16 06:55 INR 1.0 10/18/16 06:55 APTT 29 SECONDS (21-34) 10/17/16 14:01
[2016-10-18] MEDS ORDERED: Pantoprazole 40 mg EC Tab PO SCH (10:00)
--- NOTE | 2016-10-18 15:56 | CON ---
DATE: 10/18/2016 NEUROSURGERY CONSULTATION ATTENDING PHYSICIAN: Dr. Evans. REASON FOR CONSULTATION: Headache, neck pain and generalized weakness. HISTORY OF PRESENT ILLNESS: The patient is an 81-year-old right-handed pleasant lady with past medical history of arthritis. The patient was admitted because of left-sided chest pain radiates through the right side of the chest for 3 days prior to admission. In addition, the patient is complaining from headache at left occipitoparietal severe headache lasted 3 days, on and off since admission. Last night, the patient stated that today it is significantly better than yesterday. The patient has been having these headaches for the last several months since April. She was admitted in April for similar reason and the patient was discharged. The patient also is complaining from neck pain radiates through the shoulders associated with numbness and tingling of the hands at times. The patient stated that "my headache trigger with the neck movement and mostly when I go to the bathroom elevated guard and when I come back I complain from headache and neck pain." The patient denies any photophobia, phonophobia, blurred vision, double vision associated with headache. The patient stated that the numbness and tingling of the hands are on and off mostly in the morning. PAST MEDICAL HISTORY: As mentioned above. FAMILY HISTORY: Text. SOCIAL HISTORY: Nonsmoker. No ethanol or drug abuser. ALLERGIES: NO KNOWN ALLERGIC REACTIONS TO MEDICATIONS. MEDICATIONS: Meclizine, rosuvastatin, and pantoprazole. REVIEW OF SYSTEMS: As per H and P and ER notes reviewed. PHYSICAL EXAMINATION VITAL SIGNS: Blood pressure 136/80, pulse 85, and respirations 18. MENTAL STATUS EXAMINATION: The patient is alert, awake, and oriented x3. Normal naming, repetition and comprehension. No agnosia. No apraxia. CRANIAL NERVES: Pupils 3 mm, bilaterally reactive. No facial asymmetry. No field defect. Tongue midline. Gag intact. Accessory nerve intact. There is significant tenderness in the left cervical paraspinal muscles with limited range of neck movement. Positive Spurling's sign. MOTOR: Normal tone in upper extremity. No pronator drift. No cogwheel rigidity. No spasticity. Fine finger movement intact. Finger tapping intact. Upper extremity deltoid, elbow, manager career 5/5. Lower extremities; bilateral hip flexion, 4+/5 knee flexion and extension, ankle dorsiflexion, plantarflexion 5-/5, the right is slightly weaker than the left side. Deep tendon reflexes are 1 in upper extremities. Absent bilateral lower extremities. Plantarflexion on both sides. SENSORY: Pinprick, light touch intact including the face intact. IMPRESSION: 1. Muscular headache most likely emanating from the left occipital region, probably secondary to high cervical herniated disc versus high facet joint arthritis. Possibility of occipital neuralgia is less likely over the left side because it is intermittent, not constant. 2. Dizziness. Most likely positional, on and off, not constant. 3. The patient's numbness and tingling of the hands most likely secondary to cervical radiculopathy. PLAN: The patient will need the physical therapy as an outpatient for the neck muscles. The patient may benefit from Fioricet for the headache on and off not to exceed 5-6 tablets a week because of the rebound headache and mild nonsteroidal and muscle relaxant can be used low doses. In addition vestibular therapy as an outpatient can be done. The patient can have the workup as an outpatient. Today is the patient's son's birthday, the family waiting for her at home. The workup can be done as an outpatient after discharge and that discussed with the patient at length, all her questions and concerns were answered at length. above discussed with her GP over the phone. Thank you for the consultation. I will sign off the case. If needed, we can be called. Darrell Hernadez MD ROBERT
[2016-10-18 16:32] VITALS: PULSE 86
[2016-10-18 16:38] VITALS: BP 108/72; RESP 20; TEMP 98
--- NOTE | 2016-10-19 10:51 | DS ---
DISCHARGE DIAGNOSES: Dizziness, possible cervical radiculopathy, headache and gastroesophageal reflux disease. HISTORY OF PRESENT ILLNESS: Ms. Zhu is an 81-year-old female with past medical history of hyperlipidemia, osteoarthritis, GERD, status post knee replacement, admitted for 3-day history of headache and dizziness. This morning, the patient is feeling much better. Denies any headache, dizziness. Denies any chest pain, shortness of breath or wheezing. Denies any nausea, vomiting, abdominal pain, diarrhea or constipation. Denies any urinary complaints. Denies any leg pains or leg cramps. All other systems reviewed and were found to be negative. PHYSICAL EXAMINATION: GENERAL: Elderly female lying in bed in no acute distress. VITAL SIGNS: Blood pressure 108/72, pulse 76, respiration 20, temperature 98 degrees Fahrenheit and O2 saturation is 98% on room air. HEENT: Pupils equal, round and reactive to light and accommodation. Extraocular muscles intact. No icterus. No pallor. No oral thrush. No pharyngeal congestion. NECK. Supple. No JVD. LUNGS: Bilateral vesicular breath sounds. No wheezing. No rhonchi. CARDIOVASCULAR: S1 and S2 present, regular. ABDOMEN: Soft and nontender. Bowel sounds present. No guarding. No rigidity. No rebound tenderness noted. CENTRAL NERVOUS SYSTEM: Alert, awake and oriented x3. No focal deficits noted. EXTREMITIES: No edema. Palpable peripheral pulses. LABORATORY DATA: Labs done from this morning, WBC 5.6, hemoglobin 11.1, hematocrit 33.3 and platelet 196. INR 1.0, PT 11.6. Sodium 142, potassium 4.4, chloride 105, bicarbonate 26, BUN 18, creatinine 0.9 and glucose 83. Hemoglobin A1c 5.3. Calcium 9. LFTs within normal limits. Cardiac enzymes x1 negative. Lipid profile within normal limits. UA negative. CT head negative. Chest x-ray, mild atelectasis at the left lung base. HOSPITAL COURSE: The patient was admitted to the hospital telemetry for dizziness. The patient was started on antibiotics. The patient is evaluated by Neurology. All her laboratory data within normal limits. Her symptoms improved with antibiotics. The patient is recommended to have outpatient MRI of the cervical spine for ruling out cervical radiculopathy and as per Neurology, it can be done as outpatient and Neurology cleared the patient for discharge as the patient is clinically feeling better and cleared by Neurology. The patient is being discharged, advised the patient to follow up with Dr. De Los Santos who was her primary care physician. Advised the patient to follow up at Neurology as an outpatient. CONDITION UPON DISCHARGE: The patient is alert, awake and oriented x3 and hemodynamically stable at the time of discharge. DISCHARGE INSTRUCTIONS: Follow up with PMD. Follow up with Neurology. DISCHARGE DIET: Heart-healthy diet. ACTIVITY: As tolerated. DISCHARGE MEDICATIONS: Lipitor 10 mg p.o. daily, meclizine 25 mg p.o. every 8 hours, Mobic 15 mg daily and Protonix 40 mg daily. Advised the patient to return to the ED if any worsening symptoms. Tamara Evans MD
--- NOTE | 2016-10-20 13:06 | CARD ---
APPROVED REPORT EKG Measurement Heart [id number] [place] [id number] <Conclusion> Normal sinus rhythm Minimal voltage criteria for LVH, may be normal variant Borderline ECG
== END 2016-10-18 16:15 | disposition home or self-care (01) ==
LOC: C.ER 13:10 → C.9E 15:30 → C.6T 18:21
PROVIDERS: ADMIT Internal Medicine; ATTEND Internal Medicine
DX: R42 Dizziness and giddiness (principal); R51 Headache; K21.9 Gastro-esophageal reflux disease without esophagitis; R07.89 Other chest pain; R11.0 Nausea; E66.9 Obesity, unspecified; Z96.651 Presence of right artificial knee joint
CPT/HCPCS: 36415; 70450; 71010; 80048; 80053; 80061; 81001; 82948; 83036; 83880; 84484; 85025; 85610; 85730; 99285; G0378

== ENCOUNTER 2017-04-08 03:20 | Inpatient (IN) | payer MEDICARE ==
[2017-04-08 03:20] VITALS: BMI 38.2
--- NOTE | 2017-04-08 03:35 | C.PDOC ---
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 Feels better now.dull aching discomfort. No f/c/ Time Seen by Provider: 04/08/17 03:35 Chief Complaint (Nursing): Chest Pain History Per: Patient History/Exam Limitations: no limitations Onset/Duration Of Symptoms: Hrs Current Symptoms Are (Timing): Still Present Context: Other Severity: Moderate Pain Scale Rating Of: 4 Quality: Dull, Tightness, Pressure Associated Symptoms: Nausea, Dyspnea, Diaphoresis Modifying Factors: None Exacerbating Factors: None Alleviating Factors: None Recent travel outside of the [place]: No Additional History Per: Patient Past Medical History Reviewed: Historical Data, Nursing Documentation, Vital Signs Vital Signs: Last Vital Signs Temp 98.5 F 04/08/17 03:28 Pulse 77 04/08/17 04:40 Resp 17 04/08/17 04:40 BP 118/61 04/08/17 04:40 Pulse Ox 95 04/08/17 04:40 - Medical History PMH: Arthritis, GERD, Hypercholesterolemia Denies: Chronic Kidney Disease Surgical History: Endoscopy - [facility] Procedures ESOPHAGOGASTRODUODENOSCOPY [EGD] W/CLOSED BIOPSY (05/03/13) Family History: States: No Known Family Hx - Social History Hx Tobacco Use: No Hx Alcohol Use: No Hx Substance Use: No - Immunization History Hx Tetanus Toxoid Vaccination: Yes Hx Influenza Vaccination: Yes (2016) Hx Pneumococcal Vaccination: Yes (2014) Review Of Systems Constitutional: Negative for: Fever, Chills Eyes: Negative for: Vision Change ENT: Negative for: Throat Pain Cardiovascular: Positive for: Chest Pain Respiratory: Positive for: Shortness of Breath. Negative for: Cough Gastrointestinal: Positive for: Nausea. 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) Head: Normacephalic Eye(s): bilateral: Normal Inspection Oral Mucosa: Moist Neck: Supple Chest: Symmetrical Cardiovascular: Rhythm Regular Respiratory: Rales (bases), No Rhonchi, No Wheezing Gastrointestinal/Abdominal: Soft, No Tenderness Back: No CVA Tenderness Extremity: No Tenderness, Pedal Edema (trace) Extremity: Bilateral: Atraumatic, Normal ROM Pulses: Left Dorsalis Pedis: Normal, Right Dorsalis Pedis: Normal Neurological/Psych: Oriented x3 Gait: Steady ED Course And Treatment - Laboratory Results Result Diagrams: 04/08/17 03:43 04/08/17 04:24 ECG: Interpreted By Me, Viewed By Me ECG Rhythm: Sinus Rhythm (85), 1st Degree HB, Nonspecific Changes O2 Sat by Pulse Oximetry: 96 Pulse Ox Interpretation: Normal - Radiology CXR: Interpreted by Me, Viewed By Me CXR Interpretation: Yes: Cardiomegaly, Other (chf). No: Infiltrates, Fracture Disposition Discussed With Dr.: Sima De Los Santos Comment: accepted the pt on his service and took over the care at 5:33 AM Doctor Will See Patient In The: Hospital Counseled Patient/Family Regarding: Studies Performed, Diagnosis - Disposition Referrals: Luis Alfredo Pink MD [Primary Care Provider] - Disposition: HOSPITALIZED Disposition Time: 03:35 Condition: FAIR Forms: G[employer] (Urdu) - Clinical Impression Clinical Impression: Chest pain Decision To Admit - Pt Status Changed To: Hospital Disposition Of: Inpatient - Admit Certification Admit to Inpatient:: After my assessment, the patient will require hospitalization for at least two midnights. This is because of the severity of symptoms shown, intensity of services needed, and/or the medical risk in this patient being treated as an outpatient. - InPatient: Physician Admission Certification: I certify that this patient requires 2 or more midnights of care for the following reason:: After my assessment, the patient will require hospitalization for at least two midnights. This is because of the severity of symptoms shown, intensity of services needed, and/or the medical risk in this patient being treated as an outpatient. - . Bed Request Type: Telemetry Admitting Physician: Sima De Los Santos Patient Diagnosis: Chest pain
[2017-04-08] MEDS ORDERED: Aspirin 325 mg EC Tablets PO STA (03:36)
[2017-04-08] MEDS ORDERED: Aspirin 325 mg EC Tablets PO ONE ×2 (03:44→10:10)
[2017-04-08 03:49] LABS: BASO # 0.1 K/uL (0.0-0.2); BASO % 1.8 % (0.0-2.0); EOS # 0.2 K/uL (0.0-0.7); EOS % 2.4 % (0.0-4.0); LYMPH # 3.1 K/uL (1.0-4.3); MEAN CELL VOLUME 80.5 fL (81.0-99.0); MEAN CORPUSCULAR HEMOGLOBIN 26.9 pg (27.0-31.0); MEAN CORPUSCULAR HGB CONC 33.4 g/dL (33.0-37.0); MEAN PLATELET VOLUME 8.8 fL (7.2-11.7); MONO # 0.3 K/uL (0.0-0.8); MONO % 4.6 % (0.0-10.0); NEUT # 2.9 K/uL (1.8-7.0); NEUT % 44.2 % (50.0-75.0); RBC 4.1 Mil/uL (3.80-5.20); RED CELL DISTRIBUTION WIDTH 17.7 % (11.5-14.5); WHITE BLOOD COUNT 6.6 K/uL (4.8-10.8)
[2017-04-08 03:55] LABS: PROTHROMBIN TIME 10.8 SECONDS (9.7-12.2)
[2017-04-08 04:42] LABS: ALB/GLOB RATIO 1.1 (1.0-2.1); ALBUMIN 3.4 g/dL (3.5-5.0); ALT/SGPT 19 U/L (9-52); AST/SGOT 22 U/L (14-36); BLOOD UREA NITROGEN 12 mg/dL (7-17); CALCIUM 8.6 mg/dl (8.6-10.4); GFR AFRICAN-AMERICAN > 60; GFR NON-AFRICAN AMERICAN > 60
[2017-04-08 04:53] LABS: B-TYPE NATRIURETIC PEPTIDE 115 pg/mL (0-900)
[2017-04-08] MEDS: Nitroglycerin 2% Ointment Foilpak UD TOP SCH ×3 (06:11→17:47)
[2017-04-08] MEDS ORDERED: Nitroglycerin 2% Ointment Foilpak UD TOP ONE (06:11)
--- NOTE | 2017-04-08 07:36 | RAD ---
PROCEDURE: CHEST RADIOGRAPH, 1 VIEW HISTORY: chest pain COMPARISON: Portable chest 10/17/2016 FINDINGS: LUNGS: Diminished history volume noted. Crowding of the bronchovascular markings is seen resulting in the bilateral perihilar and medial basilar regions. No definitive acute infiltrate. PLEURA: No pneumothorax or pleural fluid seen. CARDIOVASCULAR: Normal. OSSEOUS STRUCTURES: No significant abnormalities. VISUALIZED UPPER ABDOMEN: Normal. OTHER FINDINGS: None. IMPRESSION: Poor inspiratory volume. Repeat chest radiography recommended. No definitive acute infiltrate, pleural effusion or pneumothorax identified.
[2017-04-08] MEDS ORDERED: Pantoprazole 40 mg EC Tab PO ONE (10:10)
[2017-04-08] MEDS: Pantoprazole 40 mg EC Tab PO SCH (10:10)
[2017-04-08] MEDS ORDERED: Enoxaparin 30 mg Syringe ONE (10:10)
[2017-04-08] MEDS: Enoxaparin 30 mg Syringe SC SCH ×2 (10:10→21:39)
[2017-04-08 11:44] LABS: CK-MB 0.36 ng/mL (0.0-3.38)
--- NOTE | 2017-04-08 13:43 | CP.PCM.HP ---
History of Present Illness - History of Present Illness History of Present Illness: COMPREHENSIVE HISTORY & PHYSICAL EXAM HPI ADMITTED FOR CP PT EXPERIENCED CP WHILE WAKING IN THE HOUSE A.\\/W DIAPHORESIS PRELIMINARY W/U IN ER IS NEG PAST HIST. HTN/HYPERCHOLESTEROLOL PERSONAL HIST: Smoking. N Alcohol. N Allergy N Travel_- . FAMILY HIST : ROS : Constitutional: Negative for weight change, chills, night sweats, fatigue and usage of assist device. Eyes: Negative for redness, swelling, itching, discharge, vision changes, blurry vision, double vision, glaucoma, cataracts, Ears: Negative for hearing loss, ringing, , tinnitus, vertigo Nose: Negative for rhinorrhea, stuffiness, sniffing, itching, postnasal drip, discoloration, nasal congestion and epistaxis. Throat: Negative for throat clearing, sore throat, hoarseness, difficulty swallowing and difficulty speaking. Respiratory: Negative for cough, , sputum production, chest tightness, wheezing, pleuritic chest pain ,daytime somnolence, chronic cough, hemoptysis, snoring at night, Cardiovascular: Negative for , PND, Edema of legs, leg cramps, angina, claudication, , irregular heartbeat, Neurology: Negative for irritability, muscle weakness, numbness and tingling, seizures, tremors, migraines, slurred speech, syncope, memory loss, mood changes , recurrent headaches Gastrointestinal: Negative for difficulty swallowing, diarrhea, constipation, black stools, rectal bleeding, nausea, flatulence, reflux, poor appetite, changes in bowel habits, abdominal pain Genitourinary: Negative for frequent urination, hematuria, discharge, incontinence, urinary retention, frequent UTI, Psychiatric: Negative for depression, anxiety/panic, suicidal tendencies, Musculoskeletal: Negative for swollen joints, back pain, , neck pain, morning stiffness of joints, . Skin: Negative for rash, ulcers, itching, dry skin and pigmented lesions. P/E: Constitutional: Appears stated age and in no apparent distress. Head: Normocephalic. Ears: External ear canals patent without inflammation. Tympanic membranes intact with normal light reflex and landmark. Eyes: Pupils are central, bilaterally equal, symmetrical and reacts to light with normal movements and no icterus or pallor. Nose: External nares are patent. Mucosa is pink Mouth-Throat: Good general appearance and condition. No post-pharyngeal/oropharyngeal erythema and tonsillar hypertrophy. Good dental hygiene. Neck-Lymphatic: Neck is supple with normal ROM, no thyromegaly, lymph nodes or masses. JVD is normal with no carotid bruit. Lungs: Clear to percussion and auscultation with bilateral normal air entry. Cardiovascular: S1 and S2 are normal with no murmurs, gallops and rub. GI Exam: No hepatomegaly. Abdomen is soft and non-tender. No Organomegaly , masses or hernias are evident and bowel sounds are normal and active. Neurology: Higher function and all cranial nerves intact, with no gross motor or sensory deficit. Superficial and deep reflexes are normal with downwards planters. No cerebellar deficit with normal gait. Musculoskeletal: No tender spots with normal curvature of the spine with no swelling or restricted ROM of the small and large joints. Extremities: Homans sign absent. Intact pulses with no pitting edema, calf tenderness or skin color changes. Skin: No rash, eruptions or abnormal skin pigmentation LAB/RADIOLOGY: ASSESMENT : ACUTE CORONARY SYNDROME HTN PLAN: CHECK TNI /EKG ASA, LEVONOX Present on Admission - Present on Admission Any Indicators Present on Admission: No Past Patient History - Infectious Disease Hx of Infectious Diseases: None - Past Medical History & Family History Past Medical History?: Yes - Past Social History Smoking Status: Never Smoked - CARDIAC Hx Hypercholesterolemia: Yes - PULMONARY Hx Respiratory Disorders: No - NEUROLOGICAL Hx Neurological Disorder: No - HEENT Hx HEENT Problems: Yes Hx Cataracts: Yes (BOTH EYES) - RENAL Hx Chronic Kidney Disease: No - ENDOCRINE/METABOLIC Hx Endocrine Disorders: No - HEMATOLOGICAL/ONCOLOGICAL Hx Blood Disorders: No - INTEGUMENTARY Hx Dermatological Problems: No - MUSCULOSKELETAL/RHEUMATOLOGICAL Hx Arthritis: Yes - GASTROINTESTINAL Hx Gastrointestinal Disorders: Yes Hx Gastroesophageal Reflux: Yes Hx Ulcer: Yes - GENITOURINARY/GYNECOLOGICAL Hx Genitourinary Disorders: No - PSYCHIATRIC Hx Substance Use: No - SURGICAL HISTORY Hx Surgeries: Yes Other/Comment: "ULCER SX" - ANESTHESIA Hx Anesthesia: Yes Hx Anesthesia Reactions: No Hx Malignant Hyperthermia: No Meds Allergies/Adverse Reactions: Allergies Allergy/AdvReac Type Severity Reaction Status Date / Time No Known Allergies Allergy Verified 04/08/17 03:27 Results - Vital Signs Recent Vital Signs: Last Vital Signs Temp 98.1 F 04/08/17 08:12 Pulse 86 04/08/17 12:15 Resp 16 04/08/17 11:06 BP 123/69 04/08/17 11:06 Pulse Ox 98 04/08/17 12:15 - Labs Result Diagrams: 04/08/17 03:43 04/08/17 04:24 Labs: Laboratory Results - last 24 hr 04/08/17 04/08/17 04/08/17 03:43 03:43 04:24 WBC 6.6 RBC 4.10 Hgb 11.0 Hct 33.0 L MCV 80.5 L MCH 26.9 L MCHC 33.4 RDW 17.7 H Plt Count 234 MPV 8.8 Neut % (Auto) 44.2 L Lymph % (Auto) 47.0 H Christian % (Auto) 4.6 Eos % (Auto) 2.4 Baso % (Auto) 1.8 Neut # (Auto) 2.9 Lymph # (Auto) 3.1 Christian # (Auto) 0.3 Eos # (Auto) 0.2 Baso # (Auto) 0.1 PT 10.8 INR 1.0 APTT 31 Sodium 143 Potassium 4.1 Chloride 109 H Carbon Dioxide 24 Anion Gap 14 BUN 12 Creatinine 0.8 Est GFR ( Amer) > 60 Est GFR (Non-Af Amer) > 60 Random Glucose 88 Calcium 8.6 Total Bilirubin 0.4 AST 22 ALT 19 Alkaline Phosphatase 72 Total Creatine Kinase CK-MB (Mass) Troponin I < 0.0120 NT-Pro-B Natriuret Pep 115 Total Protein 6.4 Albumin 3.4 L Globulin 3.0 Albumin/Globulin Ratio 1.1 04/08/17 11:12 WBC RBC Hgb Hct MCV MCH MCHC RDW Plt Count MPV Neut % (Auto) Lymph % (Auto) Christian % (Auto) Eos % (Auto) Baso % (Auto) Neut # (Auto) Lymph # (Auto) Christian # (Auto) Eos # (Auto) Baso # (Auto) PT INR APTT Sodium Potassium Chloride Carbon Dioxide Anion Gap BUN Creatinine Est GFR ( Amer) Est GFR (Non-Af Amer) Random Glucose Calcium Total Bilirubin AST ALT Alkaline Phosphatase Total Creatine Kinase 27 L CK-MB (Mass) 0.36 Troponin I < 0.0120 NT-Pro-B Natriuret Pep Total Protein Albumin Globulin Albumin/Globulin Ratio
[2017-04-08 19:37] LABS: CK-MB 0.27 ng/mL (0.0-3.38)
[2017-04-08 22:38] LABS: SQUAMOUS EPITHIAL 7 /hpf (0-5); URINE BACTERIA FEW (<OCC); URINE BILIRUBIN NEGATIVE (NEGATIVE); URINE BLOOD NEGATIVE (NEGATIVE); URINE CLARITY Clear (Clear); URINE COLOR Yellow (YELLOW); URINE GLUCOSE (UA) NORMAL (Normal); URINE LEUKOCYTE ESTERASE TRACE Leu/uL (Negative); URINE NITRATE NEGATIVE (NEGATIVE); URINE PROTEIN NEGATIVE (NEGATIVE); URINE UROBILINOGEN NORMAL mg/dL (0.2-1.0)
[2017-04-09] MEDS: Nitroglycerin 2% Ointment Foilpak UD TOP SCH ×4 (00:32→18:05)
[2017-04-09] MEDS: Pantoprazole 40 mg EC Tab PO SCH (10:26)
[2017-04-09] MEDS: Aspirin 325 mg EC Tablets PO SCH (10:27)
[2017-04-09] MEDS: Enoxaparin 30 mg Syringe SC SCH ×2 (10:27→21:46)
--- NOTE | 2017-04-09 13:54 | CP.PCM.PN ---
Subjective - Date & Time of Evaluation Date of Evaluation: 04/09/17 Time of Evaluation: 13:52 - Subjective Subjective: CHIEF COMPLAINTS TODAY : CP ON AND OFF SEVERE FATIGUE ROS. HEENT : N. Resp : No cough, wheezing ,pleuritic CP ,or hemoptysis Cardio : POS CP, PND, orthopnea, palpitation GI : No abd.pain, n/v ,diarrhea or GI bleeding . MINER PLACER : No headache, vertigo, focal deficit. Musculoskel : No joint swelling , Derm : No rash Psych : Normal affect. Ext : No swelling ,calf pain PE. Pt. is alert awake in no distress. V.S As noted in the chart Head ,ear nose,throat and eyes : Normal. Neck : Supple with normal carotids. Lungs: Clear air entry. Heart : S1 & S2 normal with S4. No murmur. Abd : Soft non tender with normal bowel sounds. Neuro : Moves all ext. with no localized deficit. Ext : No edema with intact pulses.Non tender calves Derm : No rashes or decubitus ulcer. LABS/RADIOLOGY: TNI NEG ASSESSMENT/PLAN : WILL D/W PT FOR CARDIAC CATH PT HAS RECURRENT CP A/W DIAPHORESIS DECONDITIONED FOR NON INVASIVE W/U Objective - Vital Signs/Intake and Output Vital Signs (last 24 hours): Temp Pulse Resp BP Pulse Ox 98.2 F 87 20 198/70 H 96 04/09/17 00:00 04/09/17 11:43 04/09/17 00:00 04/09/17 11:43 04/09/17 00:00 - Medications Medications: Current Medications Aspirin (Ecotrin) 325 mg PO DAILY [facility] Last Admin: 04/09/17 10:27 Dose: 325 mg Enoxaparin Sodium (Lovenox) 30 mg SC Q12 [facility] Last Admin: 04/09/17 10:27 Dose: 30 mg Meclizine HCl (Antivert) 25 mg PO Q8 PRN PRN Reason: Dizziness Nitroglycerin (Nitro-Bid 2% Oint) 1 ea TOP Q6 [facility] Last Admin: 04/09/17 11:43 Dose: Not Given Pantoprazole Sodium (Protonix Ec Tab) 40 mg PO DAILY [facility] Last Admin: 04/09/17 10:26 Dose: 40 mg - Labs Labs: 04/08/17 03:43 04/08/17 04:24 PT 10.8 SECONDS (9.7-12.2) 04/08/17 03:43 INR 1.0 04/08/17 03:43 APTT 31 SECONDS (21-34) 04/08/17 03:43
--- NOTE | 2017-04-09 19:05 | CARD ---
APPROVED REPORT EKG Measurement Heart [id number] [place] [id number] <Conclusion> Normal sinus rhythm Normal ECG
--- NOTE | 2017-04-09 19:11 | CARD ---
APPROVED REPORT EKG Measurement Heart [id number] [id number] <Conclusion> Sinus rhythm with 1st degree AV block Otherwise normal ECG
[2017-04-10] MEDS: Nitroglycerin 2% Ointment Foilpak UD TOP SCH ×4 (00:15→19:02)
[2017-04-10] MEDS: Pantoprazole 40 mg EC Tab PO SCH (09:09)
[2017-04-10] MEDS: Aspirin 325 mg EC Tablets PO SCH (09:09)
--- NOTE | 2017-04-10 13:41 | CP.PCM.PN ---
Subjective - Date & Time of Evaluation Date of Evaluation: 04/10/17 Time of Evaluation: 13:40 - Subjective Subjective: CHIEF COMPLAINTS TODAY : CP ON AND OFF SEVERE FATIGUE ROS. HEENT : N. Resp : No cough, wheezing ,pleuritic CP ,or hemoptysis Cardio : POS CP, PND, orthopnea, palpitation GI : No abd.pain, n/v ,diarrhea or GI bleeding . TANKMAN : No headache, vertigo, focal deficit. Musculoskel : No joint swelling , Derm : No rash Psych : Normal affect. Ext : No swelling ,calf pain PE. Pt. is alert awake in no distress. V.S As noted in the chart Head ,ear nose,throat and eyes : Normal. Neck : Supple with normal carotids. Lungs: Clear air entry. Heart : S1 & S2 normal with S4. No murmur. Abd : Soft non tender with normal bowel sounds. Neuro : Moves all ext. with no localized deficit. Ext : No edema with intact pulses.Non tender calves Derm : No rashes or decubitus ulcer. LABS/RADIOLOGY: TNI NEG ASSESSMENT/PLAN : PT. SIGNED INFORMED CONSENT FOR CATH TODAY Objective - Vital Signs/Intake and Output Vital Signs (last 24 hours): Temp Pulse Resp BP Pulse Ox 98.1 F 78 20 117/73 96 04/10/17 13:22 04/10/17 13:22 04/10/17 13:22 04/10/17 13:22 04/10/17 13:22 - Medications Medications: Current Medications Aspirin (Ecotrin) 325 mg PO DAILY [facility] Last Admin: 04/10/17 09:09 Dose: Not Given Enoxaparin Sodium (Lovenox) 30 mg SC Q12 [facility] Last Admin: 04/09/17 21:46 Dose: Not Given Meclizine HCl (Antivert) 25 mg PO Q8 PRN PRN Reason: Dizziness Nitroglycerin (Nitro-Bid 2% Oint) 1 ea TOP Q6 [facility] Last Admin: 04/10/17 11:52 Dose: Not Given Pantoprazole Sodium (Protonix Ec Tab) 40 mg PO DAILY [facility] Last Admin: 04/10/17 09:09 Dose: Not Given - Labs Labs: 04/08/17 03:43 04/08/17 04:24 PT 10.8 SECONDS (9.7-12.2) 04/08/17 03:43 INR 1.0 04/08/17 03:43 APTT 31 SECONDS (21-34) 04/08/17 03:43
[2017-04-10] MEDS ORDERED: Iohexol 350mg/ml 100 ML ONE (15:26)
[2017-04-10] MEDS ORDERED: Midazolam 2 MG/2 ML VIAL ONE (15:26)
[2017-04-11] MEDS: Nitroglycerin 2% Ointment Foilpak UD TOP SCH ×5 (00:06→23:53)
[2017-04-11 01:47] VITALS: RESP 20
--- NOTE | 2017-04-11 04:28 | CARDCATH ---
PROCEDURE DATE: INDICATION: This is an 81-year-old black woman admitted for chest pain. Cardiac enzymes were negative. DESCRIPTION OF PROCEDURE: The patient underwent left heart cath. Left heart cath was done through the right femoral artery. Right femoral artery was cleaned, draped, and a #6 introducer sheath was used and AngioSeal for post cath. Viv was used for the right and left and pigtail for left LV gram. The left main is a small vessel and subsequently there is some ectatic artery, probably proximal circumflex or LAD. LAD is a moderate-sized vessel with no lesions in the main trunk or any of its diagonal 1 and 2 branches. Circumflex is also a small vessel. As stated, there is some ectatic lesion in the proximal takeoff but there is no lesion in the main trunk or any of its OM branches. Right coronary proximally after the takeoff, there is a significant 80% atherosclerotic moderate-sized lesion. Rest of the RCA appears normal. It is a small vessel with some arthrosclerosis, no significant lesion. LV gram grossly appears normal. EF is 50%. ASSESSMENT: Single-vessel coronary artery disease, significant right coronary artery with normal left ventricular function. PLAN: The patient will need angioplasty of the proximal RCA. Sima De Los Santos MD
--- NOTE | 2017-04-11 08:40 | CARD ---
APPROVED REPORT EXAM: Two-dimensional and M-mode echocardiogram with Doppler and color Doppler. Other Information Quality : Good[employer] : INDICATION Chest Pain 2D DIMENSIONS IVSd1.1 (0.7-1.1cm)LVDd4.0 (3.9-5.9cm) PWd1.0 (0.7-1.1cm)LVDs2.9 (2.5-4.0cm) FS (%) 29.3 %LVEF (%)56.7 (>50%) M-Mode DIMENSIONS Left Atrium (MM)3.27 (2.5-4.0cm)Aortic Root3.71 (2.2-3.7cm) Aortic Cusp Exc.2.31 (1.5-2.0cm) Mitral Valve MV E Ygdopbmn45.7cm/sMV A Esazfvvs55.0cm/sE/A ratio0.5 TDI E/Lateral E'0.0E/Medial E'0.0 Tricuspid Valve TR Peak Rwcmvizd293tf/sTR Peak Gr.[id number] LEFT VENTRICLE The left ventricle is normal size. There is normal left ventricular wall thickness. Left ventricle systolic function is normal. The Ejection Fraction is 55-60%. There is normal LV segmental wall motion. The left ventricular diastolic function is abnormal. Transmitral Doppler flow pattern is Grade I-abnormal relaxation pattern. No left ventricle thrombus noted on this study. RIGHT VENTRICLE The right ventricle is normal size. The right ventricular systolic function is normal. ATRIA The left atrium size is normal. The right atrium size is normal. AORTIC VALVE The aortic valve is moderately sclerotic. The aortic valve is trileaflet. No aortic regurgitation is present. There is no aortic valvular stenosis. MITRAL VALVE Mitral annular calcification is moderate. There is no evidence of mitral valve prolapse. There is no mitral valve stenosis. Mitral regurgitation is mild TRICUSPID VALVE The tricuspid valve is normal in structure. There is mild to moderate tricuspid regurgitation. Right ventricular systolic pressure is estimated at 30-40 mmHg. There is no pulmonary hypertension. There is no tricuspid valve prolapse or vegetation. There is no tricuspid valve stenosis. PULMONIC VALVE The pulmonary valve is normal in structure. There is no pulmonic valvular regurgitation. There is no pulmonic valvular stenosis. GREAT VESSELS The aortic root is normal in size. The IVC is normal in size and collapses >50% with inspiration. PERICARDIAL EFFUSION There is no pericardial effusion. There is no pleural effusion. <Conclusion> The left ventricle is normal size. Left ventricle systolic function is normal. The Ejection Fraction is 55-60%. The left ventricular diastolic function is abnormal. Transmitral Doppler flow pattern is Grade I-abnormal relaxation pattern. The right ventricle is normal size. The right ventricular systolic function is normal. The left atrium size is normal. The right atrium size is normal. Mitral regurgitation is mild There is mild to moderate tricuspid regurgitation.
[2017-04-11] MEDS: Aspirin 325 mg EC Tablets PO SCH (09:54)
[2017-04-11] MEDS: Pantoprazole 40 mg EC Tab PO SCH (09:54)
--- NOTE | 2017-04-11 14:10 | CP.PCM.PN ---
Subjective - Date & Time of Evaluation Date of Evaluation: 04/11/17 Time of Evaluation: 14:09 - Subjective Subjective: CHIEF COMPLAINTS TODAY : S/P LHC SIG. PROX RCA LESION ROS. HEENT : N. Resp : No cough, wheezing ,pleuritic CP ,or hemoptysis Cardio : POS CP, PND, orthopnea, palpitation GI : No abd.pain, n/v ,diarrhea or GI bleeding . ARTIST COLOR SEPARATION : No headache, vertigo, focal deficit. Musculoskel : No joint swelling , Derm : No rash Psych : Normal affect. Ext : No swelling ,calf pain PE. Pt. is alert awake in no distress. V.S As noted in the chart Head ,ear nose,throat and eyes : Normal. Neck : Supple with normal carotids. Lungs: Clear air entry. Heart : S1 & S2 normal with S4. No murmur. Abd : Soft non tender with normal bowel sounds. Neuro : Moves all ext. with no localized deficit. Ext : No edema with intact pulses.Non tender calves Derm : No rashes or decubitus ulcer. LABS/RADIOLOGY: TNI NEG ASSESSMENT/PLAN : FOR ANGIOPLASTY OF RCA Objective - Vital Signs/Intake and Output Vital Signs (last 24 hours): Temp Pulse Resp BP Pulse Ox 98.0 F 90 20 103/69 99 04/11/17 09:04 04/11/17 09:04 04/11/17 09:04 04/11/17 09:04 04/11/17 09:04 - Medications Medications: Current Medications Aspirin (Ecotrin) 325 mg PO DAILY [facility] Last Admin: 04/11/17 09:54 Dose: 325 mg Enoxaparin Sodium (Lovenox) 30 mg SC Q12 [facility] Last Admin: 04/09/17 21:46 Dose: Not Given Meclizine HCl (Antivert) 25 mg PO Q8 PRN PRN Reason: Dizziness Nitroglycerin (Nitro-Bid 2% Oint) 1 ea TOP Q6 [facility] Last Admin: 04/11/17 12:20 Dose: Not Given Pantoprazole Sodium (Protonix Ec Tab) 40 mg PO DAILY [facility] Last Admin: 04/11/17 09:54 Dose: 40 mg Tramadol HCl (Ultram) 50 mg PO TID PRN PRN Reason: Pain, moderate (4-7) Stop: 04/13/17 23:55 - Labs Labs: 04/08/17 03:43 04/08/17 04:24 PT 10.8 SECONDS (9.7-12.2) 04/08/17 03:43 INR 1.0 04/08/17 03:43 APTT 31 SECONDS (21-34) 04/08/17 03:43
[2017-04-12] MEDS: Nitroglycerin 2% Ointment Foilpak UD TOP SCH ×4 (05:20→23:51)
[2017-04-12] MEDS: Aspirin 325 mg EC Tablets PO SCH (10:55)
[2017-04-12] MEDS: Pantoprazole 40 mg EC Tab PO SCH (10:55)
--- NOTE | 2017-04-12 15:08 | CP.PCM.PN ---
Subjective - Date & Time of Evaluation Date of Evaluation: 04/12/17 Time of Evaluation: 15:07 - Subjective Subjective: NO FURTHER CP VS STABLE FOR ANGIOPLASTY IN AM D/W PT IN DETAIL THE CATH FINDINGS AND FURTHER THERAPY Objective - Vital Signs/Intake and Output Vital Signs (last 24 hours): Temp Pulse Resp BP Pulse Ox 98.2 F 94 H 20 109/64 95 04/12/17 09:14 04/12/17 09:14 04/12/17 09:14 04/12/17 09:14 04/12/17 09:14 - Medications Medications: Current Medications Aspirin (Ecotrin) 325 mg PO DAILY [facility] Last Admin: 04/12/17 10:55 Dose: 325 mg Enoxaparin Sodium (Lovenox) 30 mg SC Q12 [facility] Last Admin: 04/09/17 21:46 Dose: Not Given Meclizine HCl (Antivert) 25 mg PO Q8 PRN PRN Reason: Dizziness Nitroglycerin (Nitro-Bid 2% Oint) 1 ea TOP Q6 [facility] Last Admin: 04/12/17 12:18 Dose: Not Given Pantoprazole Sodium (Protonix Ec Tab) 40 mg PO DAILY [facility] Last Admin: 04/12/17 10:55 Dose: 40 mg Tramadol HCl (Ultram) 50 mg PO TID PRN PRN Reason: Pain, moderate (4-7) Stop: 04/13/17 23:55 - Labs Labs: 04/08/17 03:43 04/08/17 04:24 PT 10.8 SECONDS (9.7-12.2) 04/08/17 03:43 INR 1.0 04/08/17 03:43 APTT 31 SECONDS (21-34) 04/08/17 03:43
--- NOTE | 2017-04-12 23:27 | CP.PCM.CON ---
History of Present Illness - History of Present Illness History of Present Illness: consult for angioplast for high grade RCA stenosis on Thursday Review of Systems - Review of Systems All systems: reviewed and no additional remarkable complaints except - Constitutional Constitutional: As Per HPI - EENT Eyes: As Per HPI Ears: As Per HPI Nose/Mouth/Throat: As Per HPI - Breasts Breasts: As Per HPI - Cardiovascular Cardiovascular: As Per HPI - Respiratory Respiratory: As Per HPI - Gastrointestinal Gastrointestinal: As Per HPI - Genitourinary Genitourinary: As Per HPI - Reproductive: Female Reproductive:Female: As Per HPI - Menstruation Menstruation: As Per HPI - Musculoskeletal Musculoskeletal: As Per HPI - Integumentary Integumentary: As Per HPI Past Patient History - Infectious Disease Hx of Infectious Diseases: None - Past Medical History & Family History Past Medical History?: Yes - Past Social History Smoking Status: Never Smoked - CARDIAC Hx Hypercholesterolemia: Yes - PULMONARY Hx Respiratory Disorders: No - NEUROLOGICAL Hx Neurological Disorder: No - HEENT Hx HEENT Problems: Yes Hx Cataracts: Yes (BOTH EYES) - RENAL Hx Chronic Kidney Disease: No - ENDOCRINE/METABOLIC Hx Endocrine Disorders: No - HEMATOLOGICAL/ONCOLOGICAL Hx Blood Disorders: No Hx Blood Transfusions: No - INTEGUMENTARY Hx Dermatological Problems: No - MUSCULOSKELETAL/RHEUMATOLOGICAL Hx Falls: No - GASTROINTESTINAL Hx Gastrointestinal Disorders: Yes Hx Gastroesophageal Reflux: Yes Hx Ulcer: Yes - GENITOURINARY/GYNECOLOGICAL Hx Genitourinary Disorders: No - PSYCHIATRIC Hx Substance Use: No - SURGICAL HISTORY Hx Surgeries: Yes Hx Hysterectomy: Yes Other/Comment: "ULCER SX". right knee surgery - ANESTHESIA Hx Anesthesia: Yes Hx Anesthesia Reactions: No Hx Malignant Hyperthermia: No Has any member of the family had a problem w/ anesthesia?: No Meds Allergies/Adverse Reactions: Allergies Allergy/AdvReac Type Severity Reaction Status Date / Time No Known Allergies Allergy Verified 04/08/17 03:27 - Medications Medications: Current Medications Aspirin (Ecotrin) 325 mg PO DAILY [facility] Last Admin: 04/12/17 10:55 Dose: 325 mg Docusate Sodium (Colace) 100 mg PO TID [facility] Last Admin: 04/12/17 18:02 Dose: 100 mg Enoxaparin Sodium (Lovenox) 30 mg SC Q12 [facility] Last Admin: 04/09/17 21:46 Dose: Not Given Meclizine HCl (Antivert) 25 mg PO Q8 PRN PRN Reason: Dizziness Nitroglycerin (Nitro-Bid 2% Oint) 1 ea TOP Q6 [facility] Last Admin: 04/12/17 17:32 Dose: 1 ea Pantoprazole Sodium (Protonix Ec Tab) 40 mg PO DAILY [facility] Last Admin: 04/12/17 10:55 Dose: 40 mg Tramadol HCl (Ultram) 50 mg PO TID PRN PRN Reason: Pain, moderate (4-7) Stop: 04/13/17 23:55 Physical Exam - Constitutional Appears: Well - Head Exam Head Exam: ATRAUMATIC, NORMAL INSPECTION, NORMOCEPHALIC - Eye Exam Eye Exam: EOMI, Normal appearance, PERRL Pupil Exam: NORMAL ACCOMODATION, PERRL - ENT Exam ENT Exam: Mucous Membranes Moist, Normal Exam - Neck Exam Neck exam: Positive for: Normal Inspection - Respiratory Exam Respiratory Exam: Clear to Auscultation Bilateral, NORMAL BREATHING PATTERN - Cardiovascular Exam Cardiovascular Exam: REGULAR RHYTHM - GI/Abdominal Exam GI & Abdominal Exam: Normal Bowel Sounds, Soft. absent: Tenderness - Rectal Exam Rectal Exam: NORMAL INSPECTION - Exam Exam: Circumcision, NORMAL INSPECTION External exam: NORMAL EXTERNAL EXAM Speculum exam: NORMAL SPECULUM EXAM Bimanual exam: NORMAL BIMANUAL EXAM - Extremities Exam Extremities exam: Positive for: normal inspection - Back Exam Back exam: NORMAL INSPECTION - Neurological Exam Neurological exam: Alert, CN II-XII Intact, Normal Gait, Oriented x3, Reflexes Normal - Psychiatric Exam Psychiatric exam: Normal Affect, Normal Mood - Skin Skin Exam: Dry, Intact, Normal Color, Warm Results - Vital Signs Recent Vital Signs: Last Vital Signs Temp 97.9 F 04/12/17 16:00 Pulse 85 04/12/17 16:00 Resp 20 04/12/17 16:00 BP 110/63 04/12/17 16:00 Pulse Ox 95 04/12/17 16:00 - Labs Result Diagrams: 04/08/17 03:43 04/08/17 04:24 Assessment & Plan (1) Chest pain Assessment and Plan: [place] [facility] [place] Status: Acute (2) History of CVA (cerebrovascular accident) Status: Acute (3) Ischemic heart disease Status: Acute (4) Leg edema Status: Acute
--- NOTE | 2017-04-13 04:58 | CP.PCM.PN ---
Subjective - Date & Time of Evaluation Date of Evaluation: 04/13/17 Time of Evaluation: 07:15 - Subjective Subjective: Subjective: Patient seen and examined. No acute events overnight. Offers no new complaints at this time. Denies chest pain, SOB, palpitations. 12 point ROS negative except as indicated in HPI Physical Examination: - Constitutional Appears: NAD - Head Exam Head Exam: ATRAUMATIC, NORMAL INSPECTION, NORMOCEPHALIC - Eye Exam Eye Exam: EOMI - ENT Exam ENT Exam: Mucous Membranes Moist, Normal Exam - Neck Exam Neck exam: Positive for: Normal Inspection - Respiratory Exam Respiratory Exam: Clear to Auscultation Bilateral, NORMAL BREATHING PATTERN - Cardiovascular Exam Cardiovascular Exam: REGULAR RHYTHM - GI/Abdominal Exam GI & Abdominal Exam: Normal Bowel Sounds, Soft. absent: Tenderness - Extremities Exam Extremities exam: Positive for: normal inspection - Neurological Exam Neurological exam: Alert, CN II-XII Intact, Normal Gait, Oriented x3, Reflexes Normal - Psychiatric Exam Psychiatric exam: Normal Affect, Normal Mood - Skin Skin Exam: Dry, Intact, Normal Color, Warm Assessment and Plan: Patient is a 81 year old female with a past medical history of hpl who was admitted for evaluation and treatment of chest pain on exertion and associated with diaphoresis. Cardiology team is consulted for angioplasty of the right RCA. Chest pain - cardiac cahterization performed by Dr. De Los Santos showing 80% stenosis of the proximal RCA after takeoff, normal left ventricular function - plan for cath on 04/13/17 at [facility] [place] with potential angioplasty of the right RCA - ECHO reviewed- systolic ejection fraction is 55-60%, mild to moderate tricuspid regurgitation, left ventricular diastolic function is abnormal Ischemic heart disease Status: Acute Leg edema Status: Acute - Patient case will be reviewed with attending physician, Dr. May. Objective - Vital Signs/Intake and Output Vital Signs (last 24 hours): Temp Pulse Resp BP Pulse Ox 97.6 F 90 20 99/65 L 96 04/12/17 23:20 04/13/17 00:33 04/12/17 23:20 04/12/17 23:20 04/12/17 23:20 - Medications Medications: Current Medications Aspirin (Ecotrin) 325 mg PO DAILY [facility] Last Admin: 04/12/17 10:55 Dose: 325 mg Docusate Sodium (Colace) 100 mg PO TID [facility] Last Admin: 04/12/17 18:02 Dose: 100 mg Enoxaparin Sodium (Lovenox) 30 mg SC Q12 [facility] Last Admin: 04/09/17 21:46 Dose: Not Given Meclizine HCl (Antivert) 25 mg PO Q8 PRN PRN Reason: Dizziness Nitroglycerin (Nitro-Bid 2% Oint) 1 ea TOP Q6 [facility] Last Admin: 04/12/17 23:51 Dose: Not Given Pantoprazole Sodium (Protonix Ec Tab) 40 mg PO DAILY [facility] Last Admin: 04/12/17 10:55 Dose: 40 mg Tramadol HCl (Ultram) 50 mg PO TID PRN PRN Reason: Pain, moderate (4-7) Stop: 04/13/17 23:55 - Labs Labs: 04/08/17 03:43 04/08/17 04:24 PT 10.8 SECONDS (9.7-12.2) 04/08/17 03:43 INR 1.0 04/08/17 03:43 APTT 31 SECONDS (21-34) 04/08/17 03:43
[2017-04-13] MEDS: Nitroglycerin 2% Ointment Foilpak UD TOP SCH ×4 (05:30→23:11)
[2017-04-13] MEDS: Aspirin 325 mg EC Tablets PO SCH (09:42)
[2017-04-13] MEDS: Pantoprazole 40 mg EC Tab PO SCH (09:42)
--- NOTE | 2017-04-13 13:50 | CP.PCM.PN ---
Subjective - Date & Time of Evaluation Date of Evaluation: 04/13/17 Time of Evaluation: 13:49 - Subjective Subjective: NO NEW EVENTS CHART REVIEWED PT. OUT OF STATION FOR ANGIOPLASTY D/C IN AM IF STABLE Objective - Vital Signs/Intake and Output Vital Signs (last 24 hours): Temp Pulse Resp BP Pulse Ox 98.3 F 90 20 114/73 98 04/13/17 08:45 04/13/17 08:45 04/13/17 08:45 04/13/17 08:45 04/13/17 08:45 - Medications Medications: Current Medications Aspirin (Ecotrin) 325 mg PO DAILY [facility] Last Admin: 04/13/17 09:42 Dose: 325 mg Docusate Sodium (Colace) 100 mg PO TID [facility] Last Admin: 04/13/17 09:42 Dose: 100 mg Enoxaparin Sodium (Lovenox) 30 mg SC Q12 [facility] Last Admin: 04/09/17 21:46 Dose: Not Given Meclizine HCl (Antivert) 25 mg PO Q8 PRN PRN Reason: Dizziness Nitroglycerin (Nitro-Bid 2% Oint) 1 ea TOP Q6 [facility] Last Admin: 04/13/17 12:08 Dose: Not Given Pantoprazole Sodium (Protonix Ec Tab) 40 mg PO DAILY [facility] Last Admin: 04/13/17 09:42 Dose: 40 mg Tramadol HCl (Ultram) 50 mg PO TID PRN PRN Reason: Pain, moderate (4-7) Stop: 04/13/17 23:55 - Labs Labs: 04/08/17 03:43 04/08/17 04:24 PT 10.8 SECONDS (9.7-12.2) 04/08/17 03:43 INR 1.0 04/08/17 03:43 APTT 31 SECONDS (21-34) 04/08/17 03:43
--- NOTE | 2017-04-13 17:19 | CP.PCM.PN ---
Subjective - Date & Time of Evaluation Date of Evaluation: 04/13/17 Time of Evaluation: 17:15 - Subjective Subjective: Cardiology Post Catherization Procedure Note; Resident- Miles Xiao, Attending Physician- Dr. May Patient is status post diagnostic cardiac catherization. FFR completed RCA physiologically nonsignificant 0.94 Objective - Vital Signs/Intake and Output Vital Signs (last 24 hours): Temp Pulse Resp BP Pulse Ox 98.3 F 90 20 114/73 98 04/13/17 08:45 04/13/17 08:45 04/13/17 08:45 04/13/17 08:45 04/13/17 08:45 - Medications Medications: Current Medications Aspirin (Ecotrin) 325 mg PO DAILY [facility] Last Admin: 04/13/17 09:42 Dose: 325 mg Docusate Sodium (Colace) 100 mg PO TID [facility] Last Admin: 04/13/17 13:57 Dose: Not Given Enoxaparin Sodium (Lovenox) 30 mg SC Q12 [facility] Last Admin: 04/09/17 21:46 Dose: Not Given Meclizine HCl (Antivert) 25 mg PO Q8 PRN PRN Reason: Dizziness Nitroglycerin (Nitro-Bid 2% Oint) 1 ea TOP Q6 [facility] Last Admin: 04/13/17 12:08 Dose: Not Given Pantoprazole Sodium (Protonix Ec Tab) 40 mg PO DAILY [facility] Last Admin: 04/13/17 09:42 Dose: 40 mg Tramadol HCl (Ultram) 50 mg PO TID PRN PRN Reason: Pain, moderate (4-7) Stop: 04/13/17 23:55 - Labs Labs: 04/08/17 03:43 04/08/17 04:24 PT 10.8 SECONDS (9.7-12.2) 04/08/17 03:43 INR 1.0 04/08/17 03:43 APTT 31 SECONDS (21-34) 04/08/17 03:43
--- NOTE | 2017-04-14 05:05 | CP.PCM.PN ---
Subjective - Date & Time of Evaluation Date of Evaluation: 04/14/17 Time of Evaluation: 08:00 - Subjective Subjective: Subjective: Patient seen and examined. Underwent cardiac catherization yesterday. No acute events and/or complications since procedure. Patient's questions regarding procedure/findings were addressed. Offers no new complaints at this time. Denies chest pain, SOB, palpitations. 12 point ROS negative except as indicated in HPI Physical Examination: - Constitutional Appears: NAD - Head Exam Head Exam: ATRAUMATIC, NORMAL INSPECTION, NORMOCEPHALIC - Eye Exam Eye Exam: EOMI - ENT Exam ENT Exam: Mucous Membranes Moist, Normal Exam - Neck Exam Neck exam: Positive for: Normal Inspection - Respiratory Exam Respiratory Exam: Clear to Auscultation Bilateral, NORMAL BREATHING PATTERN - Cardiovascular Exam Cardiovascular Exam: REGULAR RHYTHM - GI/Abdominal Exam GI & Abdominal Exam: Normal Bowel Sounds, Soft. absent: Tenderness - Extremities Exam Extremities exam: no clubbing, no cyanosis - Neurological Exam Neurological exam: Alert, CN II-XII Intact, Normal Gait, Oriented x3, Reflexes Normal - Psychiatric Exam Psychiatric exam: Normal Affect, Normal Mood - Skin Skin Exam: Dry, Intact, Normal Color, Warm Assessment and Plan: Patient is a 81 year old female with a past medical history of hpl who was admitted for evaluation and treatment of chest pain on exertion and associated with diaphoresis. Cardiology team is consulted for angioplasty of the right RCA. Cardiac catherization was completed on 04/13/17. Chest pain - images from cardiac cahterization on 04/10/17 reviewed- showing spasm of proximal RCA after takeoff, normal left ventricular function - [place] [facility] [place] RCA physiologically nonsignificant 0.94, no stent or balloon angioplasty required - ECHO reviewed- systolic ejection fraction is 55-60%, mild to moderate tricuspid regurgitation, left ventricular diastolic function is abnormal - continue ecotrin 325mg PO daily - start patient on toprol XL 25mg PO daily Ischemic heart disease Status: Acute - Patient case will be reviewed with attending physician, Dr. May. Objective - Vital Signs/Intake and Output Vital Signs (last 24 hours): Temp Pulse Resp BP Pulse Ox 97.9 F 94 H 20 95/50 L 97 04/13/17 23:20 04/14/17 01:00 04/13/17 23:20 04/13/17 23:20 04/13/17 23:20 - Medications Medications: Current Medications Aspirin (Ecotrin) 325 mg PO DAILY [facility] Last Admin: 04/13/17 09:42 Dose: 325 mg Docusate Sodium (Colace) 100 mg PO TID [facility] Last Admin: 04/13/17 20:19 Dose: Not Given Enoxaparin Sodium (Lovenox) 30 mg SC Q12 [facility] Last Admin: 04/09/17 21:46 Dose: Not Given Meclizine HCl (Antivert) 25 mg PO Q8 PRN PRN Reason: Dizziness Nitroglycerin (Nitro-Bid 2% Oint) 1 ea TOP Q6 [facility] Last Admin: 04/13/17 23:11 Dose: Not Given Pantoprazole Sodium (Protonix Ec Tab) 40 mg PO DAILY [facility] Last Admin: 04/13/17 09:42 Dose: 40 mg - Labs Labs: 04/08/17 03:43 04/08/17 04:24 PT 10.8 SECONDS (9.7-12.2) 04/08/17 03:43 INR 1.0 04/08/17 03:43 APTT 31 SECONDS (21-34) 04/08/17 03:43 Assessment and Plan - Assessment and Plan (Free Text) Assessment: Assessment and Plan: Patient is a 81 year old female with a past medical history of hpl who was admitted for evaluation and treatment of chest pain on exertion and associated with diaphoresis. Cardiology team is consulted for angioplasty of the right RCA. Cardiac catherization was completed on 04/13/17. Chest pain - images from cardiac cahterization on 04/10/17 reviewed- showing spasm of proximal RCA after takeoff, normal left ventricular function - [place] [facility] [place] RCA physiologically nonsignificant 0.94, no stent or balloon angioplasty required - ECHO reviewed- systolic ejection fraction is 55-60%, mild to moderate tricuspid regurgitation, left ventricular diastolic function is abnormal - continue aspirin and nitro Ischemic heart disease Status: Acute Leg edema Status: Acute - Patient case will be reviewed with attending physician, Dr. May.
[2017-04-14] MEDS: Nitroglycerin 2% Ointment Foilpak UD TOP SCH ×2 (07:36→13:00)
[2017-04-14] MEDS: Pantoprazole 40 mg EC Tab PO SCH (10:52)
[2017-04-14] MEDS: Aspirin 325 mg EC Tablets PO SCH (10:53)
[2017-04-14 11:37] LABS: HEMOGLOBIN 11.8 g/dL (11.0-16.0); MEAN CELL VOLUME 80.4 fL (81.0-99.0); MEAN CORPUSCULAR HEMOGLOBIN 27.3 pg (27.0-31.0); MEAN PLATELET VOLUME 9.2 fL (7.2-11.7); RBC 4.33 Mil/uL (3.80-5.20); RED CELL DISTRIBUTION WIDTH 17.4 % (11.5-14.5); WHITE BLOOD COUNT 6.5 K/uL (4.8-10.8)
--- NOTE | 2017-04-14 11:46 | CP.PCM.DIS ---
Provider - Provider Date of Admission: 04/08/17 05:32 Attending physician: Sima De Los Santos MD Primary care physician: Luis Alfredo Pink MD Time Spent in preparation of Discharge (in minutes): 30 Hospital Course - Lab Results Lab Results: Most Recent Lab Values WBC 6.5 K/uL (4.8-10.8) 04/14/17 11:18 RBC 4.33 Mil/uL (3.80-5.20) 04/14/17 11:18 Hgb 11.8 g/dL (11.0-16.0) 04/14/17 11:18 Hct 34.8 % (34.0-47.0) 04/14/17 11:18 MCV 80.4 fL (81.0-99.0) L 04/14/17 11:18 MCH 27.3 pg (27.0-31.0) 04/14/17 11:18 MCHC 34.0 g/dL (33.0-37.0) 04/14/17 11:18 RDW 17.4 % (11.5-14.5) H 04/14/17 11:18 Plt Count 233 K/uL (130-400) 04/14/17 11:18 MPV 9.2 fL (7.2-11.7) 04/14/17 11:18 Neut % (Auto) 44.2 % (50.0-75.0) L 04/08/17 03:43 Lymph % (Auto) 47.0 % (20.0-40.0) H 04/08/17 03:43 [place] % (Auto) 4.6 % (0.0-10.0) 04/08/17 03:43 Eos % (Auto) 2.4 % (0.0-4.0) 04/08/17 03:43 Baso % (Auto) 1.8 % (0.0-2.0) 04/08/17 03:43 Neut # (Auto) 2.9 K/uL (1.8-7.0) 04/08/17 03:43 Lymph # (Auto) 3.1 K/uL (1.0-4.3) 04/08/17 03:43 [place] # (Auto) 0.3 K/uL (0.0-0.8) 04/08/17 03:43 Eos # (Auto) 0.2 K/uL (0.0-0.7) 04/08/17 03:43 Baso # (Auto) 0.1 K/uL (0.0-0.2) 04/08/17 03:43 PT 10.8 SECONDS (9.7-12.2) 04/08/17 03:43 INR 1.0 04/08/17 03:43 APTT 31 SECONDS (21-34) 04/08/17 03:43 Sodium 143 mmol/L (132-148) 04/08/17 04:24 Potassium 4.1 mmol/L (3.6-5.2) 04/08/17 04:24 Chloride 109 mmol/L (98-107) H 04/08/17 04:24 Carbon Dioxide 24 mmol/L (22-30) 04/08/17 04:24 Anion Gap 14 (10-20) 04/08/17 04:24 BUN 12 mg/dL (7-17) 04/08/17 04:24 Creatinine 0.8 mg/dL (0.7-1.2) 04/08/17 04:24 Est GFR ( Amer) > 60 04/08/17 04:24 Est GFR (Non-Af Amer) > 60 04/08/17 04:24 Random Glucose 88 mg/dL (65-105) 04/08/17 04:24 Calcium 8.6 mg/dl (8.6-10.4) 04/08/17 04:24 Total Bilirubin 0.4 mg/dL (0.2-1.3) 04/08/17 04:24 AST 22 U/L (14-36) 04/08/17 04:24 ALT 19 U/L (9-52) 04/08/17 04:24 Alkaline Phosphatase 72 U/L (38-126) 04/08/17 04:24 Total Creatine Kinase 25 U/L (30-135) L 04/08/17 19:09 CK-MB (Mass) 0.27 ng/mL (0.0-3.38) 04/08/17 19:09 Troponin I < 0.0120 ng/mL (0.00-0.120) 04/08/17 19:09 NT-Pro-B Natriuret Pep 115 pg/mL (0-900) 04/08/17 04:24 Total Protein 6.4 g/dL (6.3-8.3) 04/08/17 04:24 Albumin 3.4 g/dL (3.5-5.0) L 04/08/17 04:24 Globulin 3.0 gm/dL (2.2-3.9) 04/08/17 04:24 Albumin/Globulin Ratio 1.1 (1.0-2.1) 04/08/17 04:24 Urine Color Yellow (YELLOW) 04/08/17 22:29 Urine Clarity Clear (Clear) 04/08/17 22: Urine pH 6.0 (5.0-8.0) 04/08/17 22: Ur Specific [place] 1.012 (1.003-1.030) 04/08/17 22: Urine Protein Negative mg/dL (NEGATIVE) 04/08/17 22: Urine Glucose (UA) Normal mg/dL (Normal) 04/08/17: Urine Ketones Negative mg/dL (NEGATIVE) 04/08/17 22: Urine Blood Negative (NEGATIVE) 04/08/17 22: Urine Nitrate Negative (NEGATIVE) 04/08/17 22:29 Urine Bilirubin Negative (NEGATIVE) 04/08/17 22: Urine Urobilinogen Normal mg/dL (0.2-1.0) 04/08/17 22:29 Ur Leukocyte Esterase Trace [place]/uL (Negative) 04/08/17 22:29 Urine WBC (Auto) 3 /hpf (0-5) 04/08/17 22:29 Urine RBC (Auto) 1 /hpf (0-3) 04/08/17 22:29 Ur Squamous Epith Cells 7 /hpf (0-5) H 04/08/17 22:29 Urine Bacteria Few (<OCC) H 04/08/17 22:29 - Hospital Course Hospital Course: ADMITTED FOR CP AT REST TNI NEG pt. went for CARDIAC CATH THERE WAS PROX. LONG RCA LESION IN [place] , THE FFR WAS NORMAL , IT WAS PRESUMED TO BE SEC TO SPASM . NO INTERVENTION PT WILL BE D/C HOME ON NITRO , ASA , LIPITOR Discharge Exam - Head Exam Head Exam: ATRAUMATIC, NORMAL INSPECTION, NORMOCEPHALIC Discharge Plan - Follow Up Plan Condition: FAIR Disposition: HOME/ ROUTINE Referrals: Luis Alfredo Pink MD [Primary Care Provider] -
[2017-04-14 11:47] LABS: ALB/GLOB RATIO 1.2 (1.0-2.1); ALT/SGPT 22 U/L (9-52); AST/SGOT 27 U/L (14-36); BLOOD UREA NITROGEN 13 mg/dL (7-17); CALCIUM 9.2 mg/dl (8.6-10.4); GFR AFRICAN-AMERICAN > 60; GFR NON-AFRICAN AMERICAN 60
[2017-04-14] MEDS ORDERED: Metoprolol Succinate 25 mg XL Tab PO SCH (12:00)
[2017-04-14 12:30] LABS: BASO # 0.2 K/uL (0.0-0.2); EOS # 0.2 K/uL (0.0-0.7); LYMPH # 1.2 K/uL (1.0-4.3); MONO # 0.6 K/uL (0.0-0.8); NEUT # 4.4 K/uL (1.8-7.0)
[2017-04-14 16:13] VITALS: PULSE 93
[2017-04-14 16:29] VITALS: BP 123/64; TEMP 98; O2SAT 100
== END 2017-04-14 16:59 | disposition home or self-care (01) | DRG 287 ==
LOC: SUPCPDRO 03:20 → C.ER 03:20 → C.9E 05:32 → C.6T 14:18
PROVIDERS: ADMIT Internal Medicine Cardiovascular Disease; ATTEND Internal Medicine Cardiovascular Disease
PROC: 4A023N7 Measurement of Cardiac Sampling and Pressure, Left Heart, Percutaneous Approach (ICD-10-PCS; principal; 2017-04-10)
PROC: B215YZZ Fluoroscopy of Left Heart using Other Contrast (ICD-10-PCS; 2017-04-10)
PROC: B211YZZ Fluoroscopy of Multiple Coronary Arteries using Other Contrast (ICD-10-PCS; 2017-04-10)
PROC: 4A023N7 Measurement of Cardiac Sampling and Pressure, Left Heart, Percutaneous Approach (ICD-10-PCS; 2017-04-13)
PROC: B215YZZ Fluoroscopy of Left Heart using Other Contrast (ICD-10-PCS; 2017-04-13)
PROC: B210YZZ Fluoroscopy of Single Coronary Artery using Other Contrast (ICD-10-PCS; 2017-04-13)
DX: I25.110 Atherosclerotic heart disease of native coronary artery with unstable angina pectoris (principal); I20.1 Angina pectoris with documented spasm; I07.1 Rheumatic tricuspid insufficiency; I10 Essential (primary) hypertension; K21.9 Gastro-esophageal reflux disease without esophagitis; E78.00 Pure hypercholesterolemia, unspecified; Z86.73 Personal history of transient ischemic attack (TIA), and cerebral infarction without residual deficits; Z90.710 Acquired absence of both cervix and uterus

== ENCOUNTER 2017-08-25 15:00 | Inpatient (IN) | payer MEDICARE ==
--- NOTE | 2017-08-25 15:42 | C.PDOC ---
History Of Present Illness 82 year old female, whose PMHx includes CAD and HTN, presents to the ED for evaluation of chest pain which has been intermittent for the past 2 days. Patient describes symptoms as left-sided heaviness. Patient took Nitroglycerin with relief of symptoms. She also states she took Aspirin today. Patient recently underwent cardiac catherterization in April, which showed 80 percent RCA lesions and FFR of 0.95; vessel was not stented. Patient denies fever, chills. Time Seen by Provider: 08/25/17 15:04 History Per: Patient History/Exam Limitations: no limitations Onset/Duration Of Symptoms: Days (2), Intermittent Episodes Current Symptoms Are (Timing): Still Present Quality: "Pain", Other (heaviness ) Additional History Per: Patient Past Medical History Reviewed: Historical Data, Nursing Documentation, Vital Signs Vital Signs: Last Vital Signs Temp 98.4 F 08/25/17 18:41 Pulse 72 08/25/17 18:41 Resp 18 08/25/17 18:41 BP 113/69 08/25/17 18:41 Pulse Ox 98 08/25/17 18:41 - Medical History PMH: Arthritis, GERD, Hypercholesterolemia Denies: Chronic Kidney Disease Surgical History: Endoscopy - [facility] Procedures ESOPHAGOGASTRODUODENOSCOPY [EGD] W/CLOSED BIOPSY (05/03/13) FLUOROSCOPY OF LEFT HEART USING OTHER CONTRAST (04/08/17) FLUOROSCOPY OF MULTIPLE CORONARY ARTERIES USING OTH CONTRAST (04/08/17) FLUOROSCOPY OF SINGLE CORONARY ARTERY USING OTHER CONTRAST (04/08/17) MEASURE OF CARDIAC SAMPL & PRESSURE, L HEART, PERC APPROACH (04/08/17) Family History: States: Unknown Family Hx - Social History Hx Tobacco Use: No Hx Alcohol Use: No Hx Substance Use: No - Immunization History Hx Tetanus Toxoid Vaccination: Yes Hx Influenza Vaccination: Yes (2017) Hx Pneumococcal Vaccination: Yes (2014) Review Of Systems Constitutional: Negative for: Fever, Chills Cardiovascular: Positive for: Chest Pain Physical Exam - Physical Exam Appears: Non-toxic, No Acute Distress, Other (morbidly obese ) Skin: Normal Color, Warm, Dry Head: Atraumatic, Normacephalic Eye(s): bilateral: Normal Inspection Oral Mucosa: Moist Neck: Supple Chest: Symmetrical, No Deformity, No Tenderness Cardiovascular: Rhythm Regular, No Murmur Respiratory: Normal Breath Sounds, No Rales, No Rhonchi, No Wheezing Extremity: Normal ROM, Capillary Refill (less than 2 seconds ) Neurological/Psych: Oriented x3, Normal Speech, Normal Cognition ED Course And Treatment - Laboratory Results Result Diagrams: 08/25/17 15:52 08/25/17 15:52 ECG: Interpreted By Me, Viewed By Me ECG Rhythm: Sinus Rhythm Interpretation Of ECG: Normal Sinus Rhythm at rate 88bpm. No ST wave changes. Rate From EC O2 Sat by Pulse Oximetry: 94 Medical Decision Making Medical Decision Making: Impression: 82 year old female with intermittent chest pain Progress: Bloodwork, urinalysis, CXR, EKG ordered and reviewed. case discussed with dr mendoza. requests ddimer. dimer mildy elevated, ct neg. no cough no wbc. requests lovenox for am dvt study. Disposition - Disposition Disposition: HOSPITALIZED Disposition Time: 06:00 Condition: STABLE - Clinical Impression Clinical Impression: Chest pain, Elevated d-dimer - Scribe Statement The provider has reviewed the documentation as recorded by the Scribe (Marycruz Xiao) Provider Attestation: All medical record entries made by the Scribe were at my direction and personally dictated by me. I have reviewed the chart and agree that the record accurately reflects my personal performance of the history, physical exam, medical decision making, and the department course for this patient. I have also personally directed, reviewed, and agree with the discharge instructions and disposition. Decision To Admit - Pt Status Changed To: Hospital Disposition Of: Observation - . Bed Request Type: Telemetry Admitting Physician: Sima Mendoza Patient Diagnosis: Chest pain, Elevated d-dimer
[2017-08-25 15:59] LABS: HEMOGLOBIN 10.4 g/dL (11.0-16.0)
[2017-08-25 16:04] LABS: MEAN CELL VOLUME 80.9 fL (81.0-99.0); MEAN CORPUSCULAR HEMOGLOBIN 26.3 pg (27.0-31.0); MEAN CORPUSCULAR HGB CONC 32.5 g/dL (33.0-37.0); MEAN PLATELET VOLUME 9.2 fL (7.2-11.7); PROTHROMBIN TIME 11.1 SECONDS (9.7-12.2); RBC 3.97 Mil/uL (3.80-5.20); RED CELL DISTRIBUTION WIDTH 17.6 % (11.5-14.5); WHITE BLOOD COUNT 5.9 K/uL (4.8-10.8)
--- NOTE | 2017-08-25 16:05 | RAD ---
Date of service: 08/25/2017 PROCEDURE: CHEST RADIOGRAPH, 1 VIEW HISTORY: chest pain COMPARISON: 04/08/2017 FINDINGS: LUNGS: Lung volumes low-normal. PLEURA: No pneumothorax or pleural fluid seen. CARDIOVASCULAR: Mild cardiomegaly. Minimal pulmonary venous congestion -since the prior exam this appears less pronounced. Atherosclerotic vascular calcifications present. . OSSEOUS STRUCTURES: Bilateral shoulder arthrosis. VISUALIZED UPPER ABDOMEN: Normal. OTHER FINDINGS: None. IMPRESSION: Cardiomegaly -similar Minimal pulmonary venous congestion -appears less now than before.
[2017-08-25 16:11] LABS: ALB/GLOB RATIO 1.2 (1.0-2.1); ALBUMIN 3.6 g/dL (3.5-5.0); ALT/SGPT 18 U/L (9-52); AST/SGOT 21 U/L (14-36); BLOOD UREA NITROGEN 16 mg/dL (7-17); CALCIUM 8.8 mg/dl (8.6-10.4); GFR AFRICAN-AMERICAN > 60; GFR NON-AFRICAN AMERICAN 60
[2017-08-25 16:29] LABS: B-TYPE NATRIURETIC PEPTIDE 196 pg/mL (0-900)
[2017-08-25 16:36] LABS: BASO # 0.1 K/uL (0.0-0.2); EOS # 0.1 K/uL (0.0-0.7); LYMPH # 2.3 K/uL (1.0-4.3); MONO # 0.4 K/uL (0.0-0.8); NEUT # 3.1 K/uL (1.8-7.0)
[2017-08-25 17:46] LABS: SQUAMOUS EPITHIAL 5 /hpf (0-5); URINE BILIRUBIN NEGATIVE (NEGATIVE); URINE BLOOD NEGATIVE (NEGATIVE); URINE CLARITY Clear (Clear); URINE COLOR Yellow (YELLOW); URINE GLUCOSE (UA) NORMAL (Normal); URINE LEUKOCYTE ESTERASE NEG Leu/uL (Negative); URINE PROTEIN NEGATIVE (NEGATIVE); URINE UROBILINOGEN NORMAL mg/dL (0.2-1.0)
[2017-08-25] MEDS ORDERED: Iodixanol 320 MG/ML 100 ML BOTTLE IV ONE (18:03)
--- NOTE | 2017-08-25 18:48 | CT ---
Date of service: 08/25/2017 PROCEDURE: CT Chest with contrast (Pulmonary Angiogram) HISTORY: Chest pain. Elevated D-dimer COMPARISON: None available. TECHNIQUE: Axial computed tomography images were obtained of the chest in the pulmonary arterial phase of enhancement. Coronal and sagittal reformatted images were created and reviewed. Intravenous contrast dose: 100 cc Visipaque 320. Mean Hounsfield unit values in the main pulmonary artery: 305.42 Radiation dose: Total exam DLP = 503.42 mGy-cm. This CT exam was performed using one or more of the following dose reduction techniques: Automated exposure control, adjustment of the mA and/or kV according to patient size, and/or use of iterative reconstruction technique. FINDINGS: PULMONARY ARTERIES: Unremarkable. No pulmonary embolism. AORTA: No acute findings. No thoracic aortic aneurysm. LUNGS: Faint multifocal and bilateral alveolar infiltrates likely infectious or inflammatory. PLEURAL SPACES: Unremarkable. No effusion or pneumothorax. HEART: Unremarkable. No cardiomegaly. No significant pericardial effusion. LYMPH NODES: No lymphadenopathy. BONES, CHEST WALL: Unremarkable. No fracture or destructive lesion OTHER FINDINGS: Unremarkable. IMPRESSION: Unremarkable CT pulmonary angiogram. No pulmonary embolus. Multifocal airspace disease/infiltrates.
[2017-08-25] MEDS ORDERED: Enoxaparin 80 mg Syringe SC STA (18:52)
[2017-08-25] MEDS ORDERED: Enoxaparin 100 mg Syringe ONE (19:03)
--- NOTE | 2017-08-25 20:23 | CP.PCM.HP ---
History of Present Illness - History of Present Illness History of Present Illness: COMPREHENSIVE HISTORY & PHYSICAL EXAM HPI Patient is admitted for chest pain and palpitation. For the last 48 hours patient was in complaining of palpitations and sharp retrosternal chest pain radiating to left arm off and on about 2 times prior to admission. On the day of admission patients chest pain and palpitation increased to moderate to severe intensity. Patient was evaluated in the ER there were no any acute ST-T changes and the first set of cardiac enzymes were negative. The edema was borderline positive. And CT angios of the chest did not reveal any pulmonary embolism. PAST HIST. Patient was recently admitted with similar complaints in [facility]. Cardiac catheterization showed initially a lesion in the right coronary artery proximally. Subsequently patient underwent interventional procedure and during that procedure the FFR was 0.95 suggesting no lesions. It was deemed that it was probably secondary to spasm. Patient was treated with nitroglycerin sublingual with occasional relief of chest pain. Patient has history of hypertension. PERSONAL HIST: Smoking. N Alcohol. N Allergy N Travel_- . FAMILY HIST : ROS : Constitutional: Negative for weight change, chills, night sweats, fatigue and usage of assist device. Eyes: Negative for redness, swelling, itching, discharge, vision changes, blurry vision, double vision, glaucoma, cataracts, Ears: Negative for hearing loss, ringing, , tinnitus, vertigo Nose: Negative for rhinorrhea, stuffiness, sniffing, itching, postnasal drip, discoloration, nasal congestion and epistaxis. Throat: Negative for throat clearing, sore throat, hoarseness, difficulty swallowing and difficulty speaking. Respiratory: Negative for cough, , sputum production, chest tightness, wheezing, pleuritic chest pain ,daytime somnolence, chronic cough, hemoptysis, snoring at night, Cardiovascular: As described above Neurology: Negative for irritability, muscle weakness, numbness and tingling, seizures, tremors, migraines, slurred speech, syncope, memory loss, mood changes , recurrent headaches Gastrointestinal: Negative for difficulty swallowing, diarrhea, constipation, black stools, rectal bleeding, nausea, flatulence, reflux, poor appetite, changes in bowel habits, abdominal pain Genitourinary: Negative for frequent urination, hematuria, discharge, incontinence, urinary retention, frequent UTI, Psychiatric: Negative for depression, anxiety/panic, suicidal tendencies, Musculoskeletal: Negative for swollen joints, back pain, , neck pain, morning stiffness of joints, . Skin: Negative for rash, ulcers, itching, dry skin and pigmented lesions. P/E: Constitutional: Appears stated age and in no apparent distress. Head: Normocephalic. Ears: External ear canals patent without inflammation. Tympanic membranes intact with normal light reflex and landmark. Eyes: Pupils are central, bilaterally equal, symmetrical and reacts to light with normal movements and no icterus or pallor. Nose: External nares are patent. Mucosa is pink Mouth-Throat: Good general appearance and condition. No post-pharyngeal/oropharyngeal erythema and tonsillar hypertrophy. Good dental hygiene. Neck-Lymphatic: Neck is supple with normal ROM, no thyromegaly, lymph nodes or masses. JVD is normal with no carotid bruit. Lungs: Clear to percussion and auscultation with bilateral normal air entry. Cardiovascular: S1 and S2 are normal with no murmurs, gallops and rub. GI Exam: No hepatomegaly. Abdomen is soft and non-tender. No Organomegaly , masses or hernias are evident and bowel sounds are normal and active. Neurology: Higher function and all cranial nerves intact, with no gross motor or sensory deficit. Superficial and deep reflexes are normal with downwards planters. No cerebellar deficit with normal gait. Musculoskeletal: No tender spots with normal curvature of the spine with no swelling or restricted ROM of the small and large joints. Extremities: Homans sign absent. Intact pulses with moderate pitting edema, calf tenderness or skin color changes. Skin: No rash, eruptions or abnormal skin pigmentation LAB/RADIOLOGY: ASSESMENT : Recurrent chest pain with palpitation. Rule out ischemic heart disease cardiac arrhythmia. Hypertension Edema of leg probably due to diastolic heart failure PLAN: We will repeat IV Lexiscan in a.m. Continue present medication and add Lasix 40 mg by mouth daily Present on Admission - Present on Admission Any Indicators Present on Admission: No Past Patient History - Infectious Disease Hx of Infectious Diseases: None - Past Medical History & Family History Past Medical History?: Yes - Past Social History Smoking Status: Never Smoked - CARDIAC Hx Hypercholesterolemia: Yes - PULMONARY Hx Respiratory Disorders: No - NEUROLOGICAL Hx Neurological Disorder: No - HEENT Hx HEENT Problems: Yes Hx Cataracts: Yes (BOTH EYES) - RENAL Hx Chronic Kidney Disease: No - ENDOCRINE/METABOLIC Hx Endocrine Disorders: No - HEMATOLOGICAL/ONCOLOGICAL Hx Blood Disorders: No Hx Blood Transfusions: No - INTEGUMENTARY Hx Dermatological Problems: No - MUSCULOSKELETAL/RHEUMATOLOGICAL Hx Arthritis: Yes - GASTROINTESTINAL Hx Gastrointestinal Disorders: Yes Hx Gastroesophageal Reflux: Yes Hx Ulcer: Yes - GENITOURINARY/GYNECOLOGICAL Hx Genitourinary Disorders: No - PSYCHIATRIC Hx Substance Use: No - SURGICAL HISTORY Hx Hysterectomy: Yes Hx Orthopedic Surgery: Yes (R KNEE REPLACEMENT) - ANESTHESIA Hx Anesthesia: Yes Hx Anesthesia Reactions: No Hx Malignant Hyperthermia: No Meds Allergies/Adverse Reactions: Allergies Allergy/AdvReac Type Severity Reaction Status Date / Time No Known Allergies Allergy Verified 04/08/17 03:27 Results - Vital Signs Recent Vital Signs: Last Vital Signs Temp 98.4 F 08/25/17 18:41 Pulse 72 08/25/17 18:41 Resp 18 08/25/17 18:41 BP 113/69 08/25/17 18:41 Pulse Ox 94 L 08/25/17 20:01 - Labs Result Diagrams: 08/25/17 15:52 08/25/17 15:52 Labs: Laboratory Results - last 24 hr 08/25/17 08/25/17 08/25/17 15:52 15:52 15:52 WBC 5.9 RBC 3.97 Hgb 10.4 L Hct 32.1 L MCV 80.9 L MCH 26.3 L MCHC 32.5 L RDW 17.6 H Plt Count 205 MPV 9.2 Neut % (Auto) 53.0 Lymph % (Auto) 38.0 [place] % (Auto) 6.0 Eos % (Auto) 2.0 Baso % (Auto) 1.0 Neut # (Auto) 3.1 Lymph # (Auto) 2.3 [place] # (Auto) 0.4 Eos # (Auto) 0.1 Baso # (Auto) 0.1 PT 11.1 INR 1.0 APTT 30 D-Dimer, Quantitative Sodium 143 Potassium 4.7 Chloride 107 Carbon Dioxide 26 Anion Gap 14 BUN 16 Creatinine 0.9 Est GFR ( Amer) > 60 Est GFR (Non-Af Amer) 60 Random Glucose 142 H Calcium 8.8 Total Bilirubin 0.7 AST 21 ALT 18 Alkaline Phosphatase 75 Troponin I < 0.0120 NT-Pro-B Natriuret Pep 196 Total Protein 6.6 Albumin 3.6 Globulin 3.0 Albumin/Globulin Ratio 1.2 Urine Color Urine Clarity Urine pH Ur Specific [place] Urine Protein Urine Glucose (UA) Urine Ketones Urine Blood Urine Nitrate Urine Bilirubin Urine Urobilinogen Ur Leukocyte Esterase Urine WBC (Auto) Urine RBC (Auto) Ur Squamous Epith Cells 08/25/17 08/25/17 17:22 17:31 WBC RBC Hgb Hct MCV MCH MCHC RDW Plt Count MPV Neut % (Auto) Lymph % (Auto) [place] % (Auto) Eos % (Auto) Baso % (Auto) Neut # (Auto) Lymph # (Auto) [place] # (Auto) Eos # (Auto) Baso # (Auto) PT INR APTT D-Dimer, Quantitative 542 H Sodium Potassium Chloride Carbon Dioxide Anion Gap BUN Creatinine Est GFR ( Amer) Est GFR (Non-Af Amer) Random Glucose Calcium Total Bilirubin AST ALT Alkaline Phosphatase Troponin I NT-Pro-B Natriuret Pep Total Protein Albumin Globulin Albumin/Globulin Ratio Urine Color Yellow Urine Clarity Clear Urine pH 5.0 Ur Specific [place] 1.012 Urine Protein Negative Urine Glucose (UA) Normal Urine Ketones Negative Urine Blood Negative Urine Nitrate Negative Urine Bilirubin Negative Urine Urobilinogen Normal Ur Leukocyte Esterase Neg Urine WBC (Auto) 1 Urine RBC (Auto) < 1 Ur Squamous Epith Cells 5
[2017-08-25 20:24] VITALS: RESP 20
[2017-08-26 03:04] LABS: CK-MB 0.48 ng/mL (0.0-3.38)
[2017-08-26] MEDS: Enoxaparin 40 mg Syringe SC SCH (09:22)
[2017-08-26] MEDS: Pantoprazole 40 mg EC Tab PO SCH (09:22)
[2017-08-26] MEDS ORDERED: Home Med 1 UNIT (Meloxicam [Mobic] 15 MG) PO SCH (10:00)
[2017-08-26] MEDS: Nitroglycerin 2% Ointment Foilpak UD TOP SCH ×2 (12:11→19:39)
[2017-08-26 14:20] LABS: CK-MB 0.44 ng/mL (0.0-3.38)
--- NOTE | 2017-08-26 14:50 | CP.PCM.PN ---
Subjective - Date & Time of Evaluation Date of Evaluation: 08/26/17 Time of Evaluation: 14:49 - Subjective Subjective: CHIEF COMPLAINTS TODAY : No further chest pain or palpitation ROS. HEENT : N. Resp : No cough, wheezing ,pleuritic CP ,or hemoptysis Cardio : No anginal CP, PND, orthopnea, palpitation GI : No abd.pain, n/v ,diarrhea or GI bleeding . 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 Musculoskel : No joint swelling , Derm : No rash Psych : Normal affect. Ext : No swelling ,calf pain PE. Pt. is alert awake in no distress. V.S As noted in the chart Head ,ear nose,throat and eyes : Normal. Neck : Supple with normal carotids. Lungs: Clear air entry. Heart : S1 & S2 normal with S4. No murmur. Abd : Soft non tender with normal bowel sounds. Neuro : Moves all ext. with no localized deficit. Ext : No edema with intact pulses.Non tender calves Derm : No rashes or decubitus ulcer. LABS/RADIOLOGY: All sets of cardiac enzymes are negative ASSESSMENT/PLAN : For IV Lexiscan today Objective - Vital Signs/Intake and Output Vital Signs (last 24 hours): Temp Pulse Resp BP Pulse Ox 97.8 F 87 20 117/74 99 08/26/17 07:30 08/26/17 12:15 08/26/17 07:30 08/26/17 12:15 08/26/17 07:30 - Medications Medications: Current Medications Aspirin (Aspirin) 325 mg PO DAILY [facility] Last Admin: 08/26/17 09:22 Dose: 325 mg Enoxaparin Sodium (Lovenox) 40 mg SC DAILY [facility] Last Admin: 08/26/17 09:22 Dose: 40 mg Furosemide (Lasix) 40 mg PO DAILY [facility] Home Med (Meloxicam [Mobic]) 15 mg PO DAILY [facility] Nitroglycerin (Nitro-Bid 2% Oint) 1 ea TOP Q6 [facility] Last Admin: 08/26/17 12:11 Dose: 1 ea Nitroglycerin (Nitrostat Sl Tab) 0.4 mg SL Q5MIN PRN PRN Reason: chest pain Pantoprazole Sodium (Protonix Ec Tab) 40 mg PO DAILY [facility] Last Admin: 08/26/17 09:22 Dose: 40 mg Potassium Chloride (Klor-Con 10) 10 meq PO BID [facility] - Labs Labs: 08/25/17 15:52 08/25/17 15:52 PT 11.1 SECONDS (9.7-12.2) 08/25/17 15:52 INR 1.0 08/25/17 15:52 APTT 30 SECONDS (21-34) 08/25/17 15:52
--- NOTE | 2017-08-26 17:13 | CARD ---
APPROVED REPORT Date of service: 08/25/2017 EKG Measurement Heart [id number] <Conclusion> Normal sinus rhythm Normal ECG
--- NOTE | 2017-08-26 17:21 | CARD ---
APPROVED REPORT Date of service: 08/26/2017 EKG Measurement Heart [id number] <Conclusion> Normal sinus rhythm Septal infarct, age undetermined Abnormal ECG
[2017-08-26] MEDS: Potassium Chloride 10 mEq ER Tab PO SCH (19:38)
[2017-08-26 20:24] LABS: CK-MB 0.56 ng/mL (0.0-3.38)
[2017-08-27] MEDS: Potassium Chloride 10 mEq ER Tab PO SCH ×2 (09:29→17:56)
[2017-08-27] MEDS: Pantoprazole 40 mg EC Tab PO SCH (09:29)
[2017-08-27] MEDS: Enoxaparin 40 mg Syringe SC SCH (09:30)
[2017-08-27] MEDS: Nitroglycerin 2% Ointment Foilpak UD TOP SCH ×2 (12:28→17:57)
--- NOTE | 2017-08-27 14:09 | CP.PCM.PN ---
Subjective - Date & Time of Evaluation Date of Evaluation: 08/27/17 Time of Evaluation: 14:07 - Subjective Subjective: Patient has no further chest pain. IV Lexiscan is positive for ischemia in the basal part of the anterolateral wall a small segment. We will discuss with hygiene assistant on the question of whether to intervene the right coronary artery lesion. Objective - Vital Signs/Intake and Output Vital Signs (last 24 hours): Temp Pulse Resp BP Pulse Ox 98.1 F 83 20 117/70 98 08/27/17 07:30 08/27/17 12:00 08/27/17 07:30 08/27/17 09:29 08/27/17 07:30 Intake and Output: 08/27/17 08/27/17 11:59 23:59 Intake Total 200 Output Total 237 Balance -37 - Medications Medications: Current Medications Aspirin (Aspirin) 325 mg PO DAILY [facility] Last Admin: 08/27/17 09:29 Dose: 325 mg Enoxaparin Sodium (Lovenox) 40 mg SC DAILY [facility] Last Admin: 08/27/17 09:30 Dose: 40 mg Furosemide (Lasix) 40 mg PO DAILY [facility] Last Admin: 08/27/17 09:29 Dose: 40 mg Nitroglycerin (Nitro-Bid 2% Oint) 1 ea TOP Q6 [facility] Last Admin: 08/27/17 12:28 Dose: Not Given Nitroglycerin (Nitrostat Sl Tab) 0.4 mg SL Q5MIN PRN PRN Reason: chest pain Pantoprazole Sodium (Protonix Ec Tab) 40 mg PO DAILY [facility] Last Admin: 08/27/17 09:29 Dose: 40 mg Potassium Chloride (Klor-Con 10) 10 meq PO BID [facility] Last Admin: 08/27/17 09:29 Dose: 10 meq - Labs Labs: 08/25/17 15:52 08/25/17 15:52 PT 11.1 SECONDS (9.7-12.2) 08/25/17 15:52 INR 1.0 08/25/17 15:52 APTT 30 SECONDS (21-34) 08/25/17 15:52
[2017-08-28] MEDS: Nitroglycerin 2% Ointment Foilpak UD TOP SCH ×4 (05:34→17:59)
[2017-08-28] MEDS: Potassium Chloride 10 mEq ER Tab PO SCH ×2 (09:39→17:48)
[2017-08-28] MEDS: Enoxaparin 40 mg Syringe SC SCH (09:39)
[2017-08-28] MEDS: Pantoprazole 40 mg EC Tab PO SCH (09:39)
--- NOTE | 2017-08-28 14:41 | CP.PCM.PN ---
Subjective - Date & Time of Evaluation Date of Evaluation: 08/28/17 Time of Evaluation: 14:40 - Subjective Subjective: currently patient has no chestpain. Vital signs are stable. Physical examination remains unchanged Discussed with playground worker. Due to the present condition of the patient and present findings, patient will need further evaluation, cardiac cath possible angioplasty. Patient will be transferred to [facility] on Thursday for the procedure. Objective - Vital Signs/Intake and Output Vital Signs (last 24 hours): Temp Pulse Resp BP Pulse Ox 97.8 F 75 20 96/58 L 100 08/28/17 08:00 08/28/17 12:00 08/28/17 08:00 08/28/17 09:39 08/28/17 08:00 - Medications Medications: Current Medications Aspirin (Aspirin) 325 mg PO DAILY [facility] Last Admin: 08/28/17 09:39 Dose: 325 mg Enoxaparin Sodium (Lovenox) 40 mg SC DAILY [facility] Last Admin: 08/28/17 09:39 Dose: 40 mg Furosemide (Lasix) 40 mg PO DAILY [facility] Last Admin: 08/28/17 09:39 Dose: Not Given Nitroglycerin (Nitro-Bid 2% Oint) 1 ea TOP Q6 [facility] Last Admin: 08/28/17 12:05 Dose: Not Given Nitroglycerin (Nitrostat Sl Tab) 0.4 mg SL Q5MIN PRN PRN Reason: chest pain Pantoprazole Sodium (Protonix Ec Tab) 40 mg PO DAILY [facility] Last Admin: 08/28/17 09:39 Dose: 40 mg Potassium Chloride (Klor-Con 10) 10 meq PO BID [facility] Last Admin: 08/28/17 09:39 Dose: 10 meq - Labs Labs: 08/25/17 15:52 08/25/17 15:52 PT 11.1 SECONDS (9.7-12.2) 08/25/17 15:52 INR 1.0 08/25/17 15:52 APTT 30 SECONDS (21-34) 08/25/17 15:52
[2017-08-29] MEDS: Nitroglycerin 2% Ointment Foilpak UD TOP SCH ×4 (05:59→17:17)
[2017-08-29] MEDS: Potassium Chloride 10 mEq ER Tab PO SCH ×2 (09:28→17:08)
[2017-08-29] MEDS: Pantoprazole 40 mg EC Tab PO SCH (09:28)
[2017-08-29] MEDS: Enoxaparin 40 mg Syringe SC SCH (09:30)
--- NOTE | 2017-08-29 14:17 | CP.PCM.PN ---
Subjective - Date & Time of Evaluation Date of Evaluation: 08/29/17 Time of Evaluation: 14:17 - Subjective Subjective: currently patient has no chestpain. Vital signs are stable. Physical examination remains unchanged Discussed with physical therapy attendant. Due to the present condition of the patient and present findings, patient will need further evaluation, cardiac cath possible angioplasty. Patient will be transferred to [facility] on Thursday for the procedure. Objective - Vital Signs/Intake and Output Vital Signs (last 24 hours): Temp Pulse Resp BP Pulse Ox 98 F 78 20 96/62 L 98 08/29/17 07:00 08/29/17 07:00 08/29/17 07:00 08/29/17 09:30 08/29/17 07:00 - Medications Medications: Current Medications Aspirin (Aspirin) 325 mg PO DAILY [facility] Last Admin: 08/29/17 09:28 Dose: 325 mg Bisacodyl (Dulcolax) 10 mg [place] ONCE PRN PRN Reason: Constipation Enoxaparin Sodium (Lovenox) 40 mg SC DAILY [facility] Last Admin: 08/29/17 09:30 Dose: 40 mg Furosemide (Lasix) 40 mg PO DAILY [facility] Last Admin: 08/29/17 09:30 Dose: Not Given Nitroglycerin (Nitro-Bid 2% Oint) 1 ea TOP Q6 [facility] Last Admin: 08/29/17 11:52 Dose: Not Given Nitroglycerin (Nitrostat Sl Tab) 0.4 mg SL Q5MIN PRN PRN Reason: chest pain Pantoprazole Sodium (Protonix Ec Tab) 40 mg PO DAILY [facility] Last Admin: 08/29/17 09:28 Dose: 40 mg Potassium Chloride (Klor-Con 10) 10 meq PO BID [facility] Last Admin: 08/29/17 09:28 Dose: 10 meq - Labs Labs: 08/25/17 15:52 08/25/17 15:52 PT 11.1 SECONDS (9.7-12.2) 08/25/17 15:52 INR 1.0 08/25/17 15:52 APTT 30 SECONDS (21-34) 08/25/17 15:52
[2017-08-30] MEDS: Nitroglycerin 2% Ointment Foilpak UD TOP SCH ×4 (00:50→18:26)
[2017-08-30] MEDS: Pantoprazole 40 mg EC Tab PO SCH (09:20)
[2017-08-30] MEDS: Enoxaparin 40 mg Syringe SC SCH (09:20)
[2017-08-30] MEDS: Potassium Chloride 10 mEq ER Tab PO SCH ×2 (09:20→18:25)
--- NOTE | 2017-08-30 15:11 | CP.PCM.PN ---
Subjective - Date & Time of Evaluation Date of Evaluation: 08/30/17 Time of Evaluation: 15:10 - Subjective Subjective: patient has no further chest pain and palpitation. Patient is scheduled for interventional procedure in a.m. in the [facility]. Objective - Vital Signs/Intake and Output Vital Signs (last 24 hours): Temp Pulse Resp BP Pulse Ox 98.7 F 79 20 105/68 96 08/30/17 07:00 08/30/17 07:00 08/30/17 07:00 08/30/17 09:21 08/30/17 07:00 - Medications Medications: Current Medications Aspirin (Aspirin) 325 mg PO DAILY [facility] Last Admin: 08/30/17 09:19 Dose: 325 mg Bisacodyl (Dulcolax) 10 mg [place] ONCE PRN PRN Reason: Constipation Enoxaparin Sodium (Lovenox) 40 mg SC DAILY [facility] Last Admin: 08/30/17 09:20 Dose: 40 mg Furosemide (Lasix) 40 mg PO DAILY [facility] Last Admin: 08/30/17 09:21 Dose: Not Given Nitroglycerin (Nitro-Bid 2% Oint) 1 ea TOP Q6 [facility] Last Admin: 08/30/17 13:50 Dose: Not Given Nitroglycerin (Nitrostat Sl Tab) 0.4 mg SL Q5MIN PRN PRN Reason: chest pain Pantoprazole Sodium (Protonix Ec Tab) 40 mg PO DAILY [facility] Last Admin: 08/30/17 09:20 Dose: 40 mg Potassium Chloride (Klor-Con 10) 10 meq PO BID [facility] Last Admin: 08/30/17 09:20 Dose: 10 meq - Labs Labs: 08/25/17 15:52 08/25/17 15:52 PT 11.1 SECONDS (9.7-12.2) 08/25/17 15:52 INR 1.0 08/25/17 15:52 APTT 30 SECONDS (21-34) 08/25/17 15:52
[2017-08-31] MEDS: Nitroglycerin 2% Ointment Foilpak UD TOP SCH ×3 (00:13→18:18)
[2017-08-31] MEDS: Potassium Chloride 10 mEq ER Tab PO SCH ×2 (10:49→18:16)
[2017-08-31] MEDS: Enoxaparin 40 mg Syringe SC SCH (10:50)
[2017-08-31] MEDS: Pantoprazole 40 mg EC Tab PO SCH ×2 (10:50→18:16)
--- NOTE | 2017-08-31 13:24 | CP.PCM.PN ---
Subjective - Date & Time of Evaluation Date of Evaluation: 08/31/17 Time of Evaluation: 13:23 - Subjective Subjective: patient currently is in [facility] undergoing angioplasty of the RCA. Continue present medication. Objective - Vital Signs/Intake and Output Vital Signs (last 24 hours): Temp Pulse Resp BP Pulse Ox 97.9 F 82 20 90/52 L 100 08/30/17 23:25 08/31/17 03:38 08/30/17 23:25 08/30/17 23:25 08/30/17 23:25 - Medications Medications: Current Medications Aspirin (Aspirin) 325 mg PO DAILY [facility] Last Admin: 08/31/17 10:49 Dose: Not Given Bisacodyl (Dulcolax) 10 mg [place] ONCE PRN PRN Reason: Constipation Enoxaparin Sodium (Lovenox) 40 mg SC DAILY [facility] Last Admin: 08/31/17 10:50 Dose: Not Given Furosemide (Lasix) 40 mg PO DAILY [facility] Last Admin: 08/31/17 10:50 Dose: Not Given Nitroglycerin (Nitro-Bid 2% Oint) 1 ea TOP Q6 [facility] Last Admin: 08/31/17 06:40 Dose: Not Given Nitroglycerin (Nitrostat Sl Tab) 0.4 mg SL Q5MIN PRN PRN Reason: chest pain Pantoprazole Sodium (Protonix Ec Tab) 40 mg PO DAILY [facility] Last Admin: 08/31/17 10:50 Dose: Not Given Potassium Chloride (Klor-Con 10) 10 meq PO BID [facility] Last Admin: 08/31/17 10:49 Dose: Not Given - Labs Labs: 08/25/17 15:52 08/25/17 15:52 PT 11.1 SECONDS (9.7-12.2) 08/25/17 15:52 INR 1.0 08/25/17 15:52 APTT 30 SECONDS (21-34) 08/25/17 15:52
[2017-09-01] MEDS: Nitroglycerin 2% Ointment Foilpak UD TOP SCH (00:48)
[2017-09-01 08:54] VITALS: BP 120/67; PULSE 84; TEMP 98; O2SAT 100
[2017-09-01] MEDS: Enoxaparin 40 mg Syringe SC SCH (10:16)
[2017-09-01] MEDS: Pantoprazole 40 mg EC Tab PO SCH (10:17)
[2017-09-01] MEDS: Potassium Chloride 10 mEq ER Tab PO SCH (10:20)
--- NOTE | 2017-09-01 11:49 | CP.PCM.PN ---
Subjective - Date & Time of Evaluation Date of Evaluation: 09/01/17 Time of Evaluation: 11:30 - Subjective Subjective: Patient seen today, denies any chest pain, sob, palpitations, dizziness, abdominal pain, numbness or tinglings to the left upper extremity s/p WOOL SCOURER to the RCA No overnight events reported by RN Objective - Vital Signs/Intake and Output Vital Signs (last 24 hours): Temp Pulse Resp BP Pulse Ox 98.0 F 84 20 120/67 100 09/01/17 07:25 09/01/17 07:25 09/01/17 07:25 09/01/17 07:25 09/01/17 07:25 - Medications Medications: Current Medications Aspirin (Aspirin) 325 mg PO DAILY [facility] Last Admin: 09/01/17 10:17 Dose: 325 mg Bisacodyl (Dulcolax) 10 mg [place] ONCE PRN PRN Reason: Constipation Enoxaparin Sodium (Lovenox) 40 mg SC DAILY [facility] Last Admin: 09/01/17 10:16 Dose: 40 mg Furosemide (Lasix) 40 mg PO DAILY [facility] Last Admin: 09/01/17 10:18 Dose: Not Given Nitroglycerin (Nitro-Bid 2% Oint) 1 ea TOP Q6 [facility] Last Admin: 09/01/17 00:48 Dose: Not Given Nitroglycerin (Nitrostat Sl Tab) 0.4 mg SL Q5MIN PRN PRN Reason: chest pain Pantoprazole Sodium (Protonix Ec Tab) 40 mg PO DAILY [facility] Last Admin: 09/01/17 10:17 Dose: 40 mg Potassium Chloride (Klor-Con 10) 10 meq PO BID [facility] Last Admin: 09/01/17 10:20 Dose: 10 meq - Labs Labs: 08/25/17 15:52 08/25/17 15:52 PT 11.1 SECONDS (9.7-12.2) 08/25/17 15:52 INR 1.0 08/25/17 15:52 APTT 30 SECONDS (21-34) 08/25/17 15:52 Assessment and Plan - Assessment and Plan (Free Text) Assessment: A/P 82 yr old female with pmhx with CAD and HTN, admitted with chest pain trop- x negative s/p stress test s/p WOOL SCOURER to the RCA yesterday by Dr. May D/w Dr. May, cleared for discharge from his point of view and continue brilinda an d aspirin and f/u with Dr. De Los Santos office D/W DR. De Los Santos , stable for discharge home today and f/u wiht Dr. De Los Santos office in 1 week Discharge plan discussed with patient who understands and agrees with plan RX - e prescribed to patient pharmacy Patient instructed to returns to ED IF symptoms returns
--- NOTE | 2017-09-01 14:23 | PQF ---
PROVIDER RESPONSE TEXT: Chronic diastolic heart failure with normal left ventricle ejection fraction secondary to hypertensio n and coronary artery disease. REVIEWER QUERY TEXT: Heart Failure Acuity and Type Congestive Heart Failure is documented in the Medical Record. Please document the type and acuity (in cludes probable or suspected) Such as: Type: -- Combined systolic and diastolic (heart failure with reduced ejection fraction and diastolic) dysfu nction -- Diastolic (HFpEF) -- Systolic (HFrEF) -- Left heart failure -- Right heart failure -- Right heart failure due to left heart failure -- High output failure -- End stage heart failure -- Other, please specify Acuity: -- Acute -- Chronic -- Acute on chronic -- Other, please specify Also please document the underlying cause of the CHF (includes probable or suspected) The patient's Clinical Indicators include: 82 Y O F admitted for chest pain and palpitation CXR? IMPRESSION: Cardiomegaly -similar 04/11/17 Echo--> Left Ventricle systolic function is normal. The Ejection Fraction is 55-60% . The left ventricular diastolic function is abnormal Rx: Lasix 40 mg po daily Please Specify Acuity of Diastolic Heart Failure Query created by: Lorena Duran on 08/31/2017 12:43 PM Electronically signed by: Sima De Los Santos MD 09/01/2017 2:20 PM
--- NOTE | 2017-09-01 14:26 | CP.PCM.DIS ---
Provider - Provider Date of Admission: 08/28/17 17:15 Attending physician: Sima De Los Santos MD Time Spent in preparation of Discharge (in minutes): 35 Hospital Course - Lab Results Lab Results: Most Recent Lab Values WBC 5.9 K/uL (4.8-10.8) 08/25/17 15:52 RBC 3.97 Mil/uL (3.80-5.20) 08/25/17 15:52 Hgb 10.4 g/dL (11.0-16.0) L 08/25/17 15:52 Hct 32.1 % (34.0-47.0) L 08/25/17 15:52 MCV 80.9 fL (81.0-99.0) L 08/25/17 15:52 MCH 26.3 pg (27.0-31.0) L 08/25/17 15:52 MCHC 32.5 g/dL (33.0-37.0) L 08/25/17 15:52 RDW 17.6 % (11.5-14.5) H 08/25/17 15:52 Plt Count 205 K/uL (130-400) 08/25/17 15:52 MPV 9.2 fL (7.2-11.7) 08/25/17 15:52 Neut % (Auto) 53.0 % (50.0-75.0) 08/25/17 15:52 Lymph % (Auto) 38.0 % (20.0-40.0) 08/25/17 15:52 [place] % (Auto) 6.0 % (0.0-10.0) 08/25/17 15:52 Eos % (Auto) 2.0 % (0.0-4.0) 08/25/17 15:52 Baso % (Auto) 1.0 % (0.0-2.0) 08/25/17 15:52 Neut # (Auto) 3.1 K/uL (1.8-7.0) 08/25/17 15:52 Lymph # (Auto) 2.3 K/uL (1.0-4.3) 08/25/17 15:52 [place] # (Auto) 0.4 K/uL (0.0-0.8) 08/25/17 15:52 Eos # (Auto) 0.1 K/uL (0.0-0.7) 08/25/17 15:52 Baso # (Auto) 0.1 K/uL (0.0-0.2) 08/25/17 15:52 PT 11.1 SECONDS (9.7-12.2) 08/25/17 15:52 INR 1.0 08/25/17 15:52 APTT 30 SECONDS (21-34) 08/25/17 15:52 D-Dimer, Quantitative 542 ng/mlDDU (0-243) H 08/25/17 17:22 Sodium 143 mmol/L (132-148) 08/25/17 15:52 Potassium 4.7 mmol/L (3.6-5.2) 08/25/17 15:52 Chloride 107 mmol/L (98-107) 08/25/17 15:52 Carbon Dioxide 26 mmol/L (22-30) 08/25/17 15:52 Anion Gap 14 (10-20) 08/25/17 15:52 BUN 16 mg/dL (7-17) 08/25/17 15:52 Creatinine 0.9 mg/dL (0.7-1.2) 08/25/17 15:52 Est GFR ( Amer) > 60 08/25/17 15:52 Est GFR (Non-Af Amer) 60 08/25/17 15:52 Random Glucose 142 mg/dL (65-105) H 08/25/17 15:52 Calcium 8.8 mg/dl (8.6-10.4) 08/25/17 15:52 Total Bilirubin 0.7 mg/dL (0.2-1.3) 08/25/17 15:52 AST 21 U/L (14-36) 08/25/17 15:52 ALT 18 U/L (9-52) 08/25/17 15:52 Alkaline Phosphatase 75 U/L (38-126) 08/25/17 15:52 Total Creatine Kinase 81 U/L (30-135) 08/26/17 19:54 CK-MB (Mass) 0.56 ng/mL (0.0-3.38) 08/26/17 19:54 Troponin I < 0.0120 ng/mL (0.00-0.120) 08/26/17 19:54 NT-Pro-B Natriuret Pep 196 pg/mL (0-900) 08/25/17 15:52 Total Protein 6.6 g/dL (6.3-8.3) 08/25/17 15:52 Albumin 3.6 g/dL (3.5-5.0) 08/25/17 15:52 Globulin 3.0 gm/dL (2.2-3.9) 08/25/17 15:52 Albumin/Globulin Ratio 1.2 (1.0-2.1) 08/25/17 15:52 Urine Color Yellow (YELLOW) 08/25/17 17:31 Urine Clarity Clear (Clear) 08/25/17 17:31 Urine pH 5.0 (5.0-8.0) 08/25/17 17:31 Ur Specific [place] 1.012 (1.003-1.030) 08/25/17 17:31 Urine Protein Negative mg/dL (NEGATIVE) 08/25/17 17:31 Urine Glucose (UA) Normal mg/dL (Normal) 08/25/17 17:31 Urine Ketones Negative mg/dL (NEGATIVE) 08/25/17 17:31 Urine Blood Negative (NEGATIVE) 08/25/17 17:31 Urine Nitrate Negative (NEGATIVE) 08/25/17 17:31 Urine Bilirubin Negative (NEGATIVE) 08/25/17 17:31 Urine Urobilinogen Normal mg/dL (0.2-1.0) 08/25/17 17:31 Ur Leukocyte Esterase Neg [place]/uL (Negative) 08/25/17 17:31 Urine WBC (Auto) 1 /hpf (0-5) 08/25/17 17:31 Urine RBC (Auto) < 1 /hpf (0-3) 08/25/17 17:31 Ur Squamous Epith Cells 5 /hpf (0-5) 08/25/17 17:31 - Hospital Course Hospital Course: Patient is admitted for chest pain and palpitation. For the last 48 hours patient was in complaining of palpitations and sharp retrosternal chest pain radiating to left arm off and on about 2 times prior to admission. On the day of admission patients chest pain and palpitation increased to moderate to severe intensity. Patient was evaluated in the ER there were no any acute ST-T changes and the first set of cardiac enzymes were negative. The edema was borderline positive. And CT angios of the chest did not reveal any pulmonary embolism. PAST HIST. Patient was recently admitted with similar complaints in [facility]. Cardiac catheterization showed initially a lesion in the right coronary artery proximally. Subsequently patient underwent interventional procedure and during that procedure the FFR was 0.95 suggesting no lesions. It was deemed that it was probably secondary to spasm. Patient was treated with nitroglycerin sublingual with occasional relief of chest pain. Patient has history of hypertension. 3 sets of cardiac enzymes were negative for myocardial injury. Patient had no further chest pain in the hospital.patient had an IV Lexiscan Myoview scan shows ischemia in the basal anterolateral region. Patient underwent repeat cardiac catheterization. The fractional flow reserve was 0.77 and patient underwent a successful angioplasty of the proximal RCA with Rochelle stent. The cardiac catheterization and angioplasty was done through the left radial artery. Currently patient is stable will be discharged on aspirin and Brilinta for 1 year and other antianginal therapy that currently patient is taking. Discharge Plan - Discharge Medications Prescriptions: Ticagrelor [Brilinta] 90 mg PO BID #60 tab Atorvastatin [Lipitor] 20 mg PO DAILY #30 tab - Follow Up Plan Condition: STABLE Disposition: HOME/ ROUTINE Instructions: Heart Healthy Diet, Cardiac Catheterization (DC), Coronary Stenting (DC), Chest Pain (DC), Ticagrelor, Coronary Heart Disease (DC), Atorvastatin Additional Instructions: Please follow up with Dr. De Los Santos office in 1 week - call and make appointment Please continue to take Brilinta and aspirin for 1 year continue all other medication as per med. rec. Please monitor for any bleeding, if you notice any bleeding please call Dr. De Los Santos Referrals: Sima De Los Santos MD [Staff Provider] -
--- NOTE | 2017-09-02 08:23 | PCM.HF ---
Heart Failure Core Measure - Heart Failure Ejection Fraction: 40 % or Greater HELENE Inhibitor Prescribed: No Contraindication/Reason for not providing: ef>45 Beta-Seth Prescribed: None Contraindication/Reason for not providing: bp in 90's Angiotensin II Receptor Seth Prescribed: No Contraindication/Reason for not providing: ef>45 AnticoagulationTherapy for Atrial Fibrillation/Atrialflutter: No Contraindication/Reason for not providing: no hx of afib Aldosterone Antagonist Prescribed: No Contraindication/Reason for not providing: ef>45 Hydralazine Nitrate Prescribed: No Contraindication/Reason for not providing: ef>45 Implantable Cardioverter Defibrillator Therapy: No Contraindication/Reason for not providing: ef>45/ Cardiac Resynchronization Therapy Prescribed: No Contraindication/Reason for not providing: ef>45/ recent cardiac cath - Follow up Will be discharged to: Home Follow Up Date (must be within 7 days from discharge): 09/07/17 Follow Up Time: 09:00
== END 2017-09-01 13:20 | disposition home or self-care (01) | DRG 247 ==
LOC: C.ER 15:00 → C.9E 16:46 → C.6T 18:10 → OBSVTOIN 08-28 17:15
PROVIDERS: ADMIT Internal Medicine Cardiovascular Disease; ATTEND Internal Medicine Cardiovascular Disease
PROC: 027034Z Dilation of Coronary Artery, One Artery with Drug-eluting Intraluminal Device, Percutaneous Approach (ICD-10-PCS; principal; 2017-08-31)
PROC: 4A023N7 Measurement of Cardiac Sampling and Pressure, Left Heart, Percutaneous Approach (ICD-10-PCS; 2017-08-31)
PROC: B2151ZZ Fluoroscopy of Left Heart using Low Osmolar Contrast (ICD-10-PCS; 2017-08-31)
PROC: B2111ZZ Fluoroscopy of Multiple Coronary Arteries using Low Osmolar Contrast (ICD-10-PCS; 2017-08-31)
DX: I25.10 Atherosclerotic heart disease of native coronary artery without angina pectoris (principal); I50.42 Chronic combined systolic (congestive) and diastolic (congestive) heart failure; I11.0 Hypertensive heart disease with heart failure; I50.814 Right heart failure due to left heart failure; I50.84 End stage heart failure; K21.9 Gastro-esophageal reflux disease without esophagitis; E78.00 Pure hypercholesterolemia, unspecified; R79.1 Abnormal coagulation profile; Z96.651 Presence of right artificial knee joint; Z90.710 Acquired absence of both cervix and uterus

== ENCOUNTER 2018-02-20 14:24 | Emergency (ER) | payer MEDICARE ==
[2018-02-20 14:24] VITALS: BMI 35.9
[2018-02-20 14:29] VITALS: TEMP 98.3
[2018-02-20 14:56] LABS: HEMOGLOBIN 10.5 g/dL (11.0-16.0)
[2018-02-20 15:01] LABS: ALB/GLOB RATIO 1.4 (1.0-2.1); ALBUMIN 4.2 g/dL (3.5-5.0); ALT/SGPT 21 U/L (9-52); AST/SGOT 31 U/L (14-36); BLOOD UREA NITROGEN 12 mg/dL (7-17); CALCIUM 8.7 mg/dl (8.6-10.4); GFR NON-AFRICAN AMERICAN 47
[2018-02-20 15:14] LABS: MEAN CORPUSCULAR HEMOGLOBIN 24.6 pg (27.0-31.0); MEAN CORPUSCULAR HGB CONC 32.7 g/dL (33.0-37.0); MEAN PLATELET VOLUME 9.9 fL (7.2-11.7); RBC 4.27 Mil/uL (3.80-5.20); RED CELL DISTRIBUTION WIDTH 18.4 % (11.5-14.5); WHITE BLOOD COUNT 4.1 K/uL (4.8-10.8)
[2018-02-20 15:16] LABS: MEAN CELL VOLUME 75.2 fL (81.0-99.0)
--- NOTE | 2018-02-20 15:23 | C.PDOC ---
History Of Present Illness 82 y/o female, with history of cardiac stent August 2017, is brought in by family complaining of swelling in the back of her throat, which she feels is causing SOB. Patient has normal unchanged voice. Denies any chest pain, cough, fever, chills, or other associated symptoms. Time Seen by Provider: 02/20/18 14:31 Chief Complaint (Nursing): Shortness Of Breath History Per: Patient History/Exam Limitations: no limitations Onset/Duration Of Symptoms: Hrs Current Symptoms Are (Timing): Still Present Past Medical History Reviewed: Historical Data, Nursing Documentation, Vital Signs Vital Signs: Last Vital Signs Temp 98.3 F 02/20/18 14:26 Pulse 106 H 02/20/18 14:26 Resp 28 H 02/20/18 14:46 BP 144/95 H 02/20/18 14:26 Pulse Ox 95 02/20/18 14:46 - Medical History PMH: Arthritis, GERD, Hypercholesterolemia Denies: Chronic Kidney Disease Surgical History: Coronary Stent (x1 AUGUST 2017), Endoscopy - [facility] Procedures DILATION OF 1 COR ART WITH DRUG-ELUT INTRA, PERC APPROACH (08/28/17) ESOPHAGOGASTRODUODENOSCOPY [EGD] W/CLOSED BIOPSY (05/03/13) FLUOROSCOPY OF LEFT HEART USING LOW OSMOLAR CONTRAST (08/28/17) FLUOROSCOPY OF LEFT HEART USING OTHER CONTRAST (04/08/17) FLUOROSCOPY OF MULT COR ART USING L OSM CONTRAST (08/28/17) FLUOROSCOPY OF MULTIPLE CORONARY ARTERIES USING OTH CONTRAST (04/08/17) FLUOROSCOPY OF SINGLE CORONARY ARTERY USING OTHER CONTRAST (04/08/17) MEASURE OF CARDIAC SAMPL & PRESSURE, L HEART, PERC APPROACH (08/28/17) Family History: States: No Known Family Hx - Social History Hx Tobacco Use: No Hx Alcohol Use: No Hx Substance Use: No - Immunization History Hx Tetanus Toxoid Vaccination: Yes Hx Influenza Vaccination: Yes Hx Pneumococcal Vaccination: Yes Review Of Systems Except As Marked, All Systems Reviewed And Found Negative. Constitutional: Negative for: Fever, Chills ENT: Positive for: Throat Swelling Cardiovascular: Negative for: Chest Pain Respiratory: Positive for: Shortness of Breath. Negative for: Cough Gastrointestinal: Negative for: Abdominal Pain Skin: Negative for: Rash Physical Exam - Physical Exam Appears: Non-toxic, No Acute Distress Skin: Warm, Dry Head: Atraumatic, Normacephalic Eye(s): bilateral: Normal Inspection Oral Mucosa: Moist Throat: Other (Mild edema of uvula in left upper soft palette) Chest: Symmetrical Cardiovascular: Rhythm Regular, No Murmur Respiratory: Normal Breath Sounds, No Rales, No Rhonchi, No Wheezing Gastrointestinal/Abdominal: Soft, No Tenderness, Other (Obese) Extremity: No Pedal Edema, No Deformity Extremity: Bilateral: Atraumatic, Normal Color And Temperature, Normal ROM Neurological/Psych: Oriented x3, Normal Speech (speaking in full sentences) ED Course And Treatment - Laboratory Results Result Diagrams: 02/20/18 14:45 02/20/18 14:45 Lab Results: D-Dimer, Quantitative 873 ng/mlDDU (0-243) H 02/20/18 14:45 Troponin I < 0.0120 ng/mL (0.00-0.120) 02/20/18 14:45 Total Bilirubin 0.7 mg/dL (0.2-1.3) 02/20/18 14:45 AST 31 U/L (14-36) 02/20/18 14:45 ALT 21 U/L (9-52) 02/20/18 14:45 Alkaline Phosphatase 89 U/L (38-126) 02/20/18 14:45 Total Protein 7.3 g/dL (6.3-8.3) 02/20/18 14:45 Albumin 4.2 g/dL (3.5-5.0) 02/20/18 14:45 Globulin 3.1 gm/dL (2.2-3.9) 02/20/18 14:45 Albumin/Globulin Ratio 1.4 (1.0-2.1) 02/20/18 14:45 Lab Interpretation: Abnormal (d-dimer 873H, trop neg, bnp neg, flu neg.) ECG: Interpreted By In ECG Rhythm: Sinus Rhythm ECG Interpretation: Normal Rate From EC O2 Sat by Pulse Oximetry: 95 (RA) Pulse Ox Interpretation: Normal - Radiology CXR: Interpreted by In CXR Interpretation: Yes: No Acute Disease - Other Rad CXR X-Ray: Read By Radiologist Interpretation: FINDINGS: LUNGS: The lungs are well inflated and clear. PLEURA: No pneumothorax or pleural effusion. CARDIOVASCULAR: The heart is normal in size. No aortic atherosclerotic calcifications present. OSSEOUS STRUCTURES: Within normal limits for the patient's age. VISUALIZED UPPER ABDOMEN: Normal. OTHER FINDINGS: None. IMPRESSION: No active pulmonary disease. - CT Scan/US CTA for PE Other Rad Studies (CT/US): Radiology Report Reviewed (neg for PE) Progress Note: pepid, benadryl, Prednisone PO Reevaluation Time: 16:00 Reassessment Condition: Improved (thoat discomfort much improved) Medical Decision Making Medical Decision Making: Plan: --EKG --Bloodwork --Chest XR --Flu swab --Benadryl 25 mg PO --Pepcid 20 mg PO --Prednisone 20 mg PO throat irritation with mild uvular edema and mild soft palate edema LOW susp of food allergy, no rash ? viral treated as allergic rxn with s/s relieved in <1 hr d-dimer ordered due to sudden onset of "SOB" but pt later explains her throat feels "funny" which she described as "SOB" yet was speaking regularly and frequently without voice changes. CTA for PE neg after elev d-dimer ok to d/c home. Disposition Doctor Will See Patient In The: Office Counseled Patient/Family Regarding: Studies Performed, Diagnosis - Disposition Disposition: HOME/ ROUTINE Disposition Time: 17:01 Condition: GOOD Forms: [employer] (Greenlandic) - Clinical Impression Clinical Impression: Throat irritation - Scribe Statement The provider has reviewed the documentation as recorded by the Jacob Meraz Provider Attestation: All medical record entries made by the Jacob were at my direction and personally dictated by me. I have reviewed the chart and agree that the record accurately reflects my personal performance of the history, physical exam, medical decision making, and the department course for this patient. I have also personally directed, reviewed, and agree with the discharge instructions and disposition.
[2018-02-20 15:45] LABS: NEUT # 3.2 K/uL (1.8-7.0)
[2018-02-20 15:46] LABS: LYMPH # 0.6 K/uL (1.0-4.3); MONO # 0.3 K/uL (0.0-0.8)
[2018-02-20 15:47] LABS: B-TYPE NATRIURETIC PEPTIDE 194 pg/mL (0-900)
[2018-02-20] MEDS ORDERED: Iodixanol 320 MG/ML 100 ML BOTTLE IV ONE (16:01)
--- NOTE | 2018-02-20 16:01 | RAD ---
Date of service: 02/20/2018 PROCEDURE: CHEST RADIOGRAPH, 1 VIEW HISTORY: SOB COMPARISON: 08/25/2017 FINDINGS: LUNGS: The lungs are well inflated and clear. PLEURA: No pneumothorax or pleural effusion. CARDIOVASCULAR: The heart is normal in size. No aortic atherosclerotic calcifications present. OSSEOUS STRUCTURES: Within normal limits for the patient's age. VISUALIZED UPPER ABDOMEN: Normal. OTHER FINDINGS: None. IMPRESSION: No active pulmonary disease.
[2018-02-20 16:37] VITALS: BP 155/69; PULSE 85; RESP 24
--- NOTE | 2018-02-20 16:46 | CT ---
Date of service: 02/20/2018 PROCEDURE: CT Chest with contrast (Pulmonary Angiogram) HISTORY: acute sob, D-Dimer 873H COMPARISON: 08/25/2017 CT angiogram TECHNIQUE: Axial computed tomography images were obtained of the chest in the pulmonary arterial phase of enhancement. Coronal and sagittal reformatted images were created and reviewed. Intravenous contrast dose: 100 cc Visipaque 320. Mean Hounsfield value in the main pulmonary artery: 291.71 Radiation dose: Total exam DLP = 517.02 mGy-cm. This CT exam was performed using one or more of the following dose reduction techniques: Automated exposure control, adjustment of the mA and/or kV according to patient size, and/or use of iterative reconstruction technique. FINDINGS: PULMONARY ARTERIES: Unremarkable. No pulmonary embolism. AORTA: No acute findings. No thoracic aortic aneurysm. No atherosclerotic calcification or mural plaque present. LUNGS: Unremarkable. No nodule, mass or pulmonary consolidation. PLEURAL SPACES: Unremarkable. No effusion or pneumothorax. HEART: Unremarkable. No cardiomegaly. No significant pericardial effusion. LYMPH NODES: No lymphadenopathy. BONES, CHEST WALL: Unremarkable. No fracture or destructive lesion OTHER FINDINGS: Unremarkable. IMPRESSION: Unremarkable CT pulmonary angiogram. No pulmonary embolus. No significant interval change compared to the prior examination(s).
[2018-02-20 17:01] VITALS: O2SAT 95
== END 2018-02-20 17:34 | disposition home or self-care (01) ==
LOC: C.ER 14:24
DX: J39.2 Other diseases of pharynx (principal)
CPT/HCPCS: 71045; 71275; 80053; 83880; 84484; 85025; 85378; 87804; 93005; 99284; Q9967

== ENCOUNTER 2018-03-26 10:40 | Inpatient (IN) | payer MEDICARE ==
[2018-03-26 10:51] VITALS: BMI 38.2
[2018-03-26] MEDS ORDERED: Albuterol 0.083% Inhal Sol (2.5 mg/3 mL) UD INH STA (11:40)
[2018-03-26] MEDS ORDERED: Albuterol 0.083% Inhal Sol (2.5 mg/3 mL) UD ONE (12:06)
--- NOTE | 2018-03-26 12:27 | C.PDOC ---
History Of Present Illness 82yo female, with history of GERD, high cholesterol, comes to ER reports productive cough with yellow phlegm, throat pain, headache, bodyaches, fever, and abdominal pain. She also reports nausea but denies any vomiting or diarrhea. No additional complaints. PMD: Dr. Pink Time Seen by Provider: 03/26/18 11:35 Chief Complaint (Nursing): Flu-like Symptoms History Per: Patient History/Exam Limitations: no limitations Onset/Duration Of Symptoms: Days Associated Symptoms: Cough, Sputum Past Medical History Reviewed: Historical Data, Nursing Documentation, Vital Signs Vital Signs: Last Vital Signs Temp 100.2 F H 03/26/18 11:30 Pulse 103 H 03/26/18 11:01 Resp 20 03/26/18 11:01 BP 113/68 03/26/18 11:01 Pulse Ox 92 L 03/26/18 11:01 - Medical History PMH: Arthritis, GERD, Hypercholesterolemia Denies: Chronic Kidney Disease Surgical History: Coronary Stent (x1 AUGUST 2017), Endoscopy - [facility] Procedures DILATION OF 1 COR ART WITH DRUG-ELUT INTRA, PERC APPROACH (08/28/17) ESOPHAGOGASTRODUODENOSCOPY [EGD] W/CLOSED BIOPSY (05/03/13) FLUOROSCOPY OF LEFT HEART USING LOW OSMOLAR CONTRAST (08/28/17) FLUOROSCOPY OF LEFT HEART USING OTHER CONTRAST (04/08/17) FLUOROSCOPY OF MULT COR ART USING L OSM CONTRAST (08/28/17) FLUOROSCOPY OF MULTIPLE CORONARY ARTERIES USING OTH CONTRAST (04/08/17) FLUOROSCOPY OF SINGLE CORONARY ARTERY USING OTHER CONTRAST (04/08/17) MEASURE OF CARDIAC SAMPL & PRESSURE, L HEART, PERC APPROACH (08/28/17) Family History: States: No Known Family Hx - Social History Hx Tobacco Use: No Hx Alcohol Use: No Hx Substance Use: No - Immunization History Hx Tetanus Toxoid Vaccination: Yes Hx Influenza Vaccination: No Hx Pneumococcal Vaccination: Yes Review Of Systems Except As Marked, All Systems Reviewed And Found Negative. Constitutional: Positive for: Fever, Malaise. Negative for: Chills ENT: Positive for: Throat Pain Respiratory: Positive for: Cough, Sputum Gastrointestinal: Positive for: Nausea, Abdominal Pain. Negative for: Vomiting, Diarrhea Neurological: Positive for: Headache Physical Exam - Physical Exam Appears: Non-toxic, No Acute Distress Skin: Normal Color, Warm, Dry Head: Atraumatic, Normacephalic Eye(s): bilateral: Normal Inspection Oral Mucosa: Moist Throat: No Erythema Neck: Normal ROM, Supple Chest: Symmetrical Cardiovascular: Rhythm Regular Respiratory: Wheezing Gastrointestinal/Abdominal: Soft, Tenderness (epigastric), No Guarding, No Rebou nd Back: Normal Inspection Extremity: Normal ROM, No Pedal Edema Neurological/Psych: Oriented x3 ED Course And Treatment - Laboratory Results Result Diagrams: 03/26/18 12:30 03/26/18 12:51 ECG: Interpreted By Me, Viewed By Me ECG Rhythm: Sinus Rhythm Interpretation Of ECG: Normal interval, normal axis, no ST/T wave changes Rate From EC O2 Sat by Pulse Oximetry: 92 (RA) - Other Rad CXR X-Ray: Read By Radiologist Interpretation: FINDINGS: LUNGS: The lungs are well inflated and clear. There is discoid atelectasis in the left mid lung. PLEURA: No pneumothorax or pleural effusion. CARDIOVASCULAR: The heart is normal in size. There are aortic atherosclerotic calcifications present. OSSEOUS STRUCTURES: Within normal limits for the patient's age. VISUALIZED UPPER ABDOMEN: Normal. OTHER FINDINGS: None. IMPRESSION: No active pulmonary disease. Medical Decision Making Medical Decision [place] female with abdominal pain, flu like symptoms Plan: -- Labs -- Urinalysis -- CT AP w/ IV Contrast -- Albuterol 2.5mg INH -- Tylenol 975mg PO -- Zofran 4mg IVP 1342 Patient positive for influenza A Tamiflu 75mg PO given patient bp noted to be low. iv fluid bolus given. patient admitted to hospital. Disposition Discussed With : Tamiko Xiao Doctor Will See Patient In The: Hospital Counseled Patient/Family Regarding: Studies Performed, Diagnosis - Disposition Disposition: HOSPITALIZED Disposition Time: 14:08 Condition: FAIR - Clinical Impression Clinical Impression: Hypotension, Influenza - Scribe Statement The provider has reviewed the documentation as recorded by the Jacob Reid Provider Attestation: All medical record entries made by the Jacob were at my direction and personally dictated by me. I have reviewed the chart and agree that the record accurately reflects my personal performance of the history, physical exam, medical decision making, and the department course for this patient. I have also personally directed, reviewed, and agree with the discharge instructions and disposition.
--- NOTE | 2018-03-26 12:28 | RAD ---
Date of service: 03/26/2018 PROCEDURE: CHEST RADIOGRAPH, 1 VIEW HISTORY: SOB COMPARISON: 08/25/2017. FINDINGS: LUNGS: The lungs are well inflated and clear. There is discoid atelectasis in the left mid lung. PLEURA: No pneumothorax or pleural effusion. CARDIOVASCULAR: The heart is normal in size. There are aortic atherosclerotic calcifications present. OSSEOUS STRUCTURES: Within normal limits for the patient's age. VISUALIZED UPPER ABDOMEN: Normal. OTHER FINDINGS: None. IMPRESSION: No active pulmonary disease.
[2018-03-26 12:34] LABS: HEMOGLOBIN 9.5 g/dL (11.0-16.0); MEAN CELL VOLUME 75.9 fL (81.0-99.0); MEAN CORPUSCULAR HEMOGLOBIN 24.2 pg (27.0-31.0); MEAN CORPUSCULAR HGB CONC 31.9 g/dL (33.0-37.0); MEAN PLATELET VOLUME 9.8 fL (7.2-11.7); RBC 3.94 Mil/uL (3.80-5.20); RED CELL DISTRIBUTION WIDTH 20.8 % (11.5-14.5); WHITE BLOOD COUNT 5.3 K/uL (4.8-10.8)
[2018-03-26 13:14] LABS: LYMPH # 0.7 K/uL (1.0-4.3); MONO # 0.4 K/uL (0.0-0.8); NEUT # 4.2 K/uL (1.8-7.0)
[2018-03-26 13:28] LABS: ALB/GLOB RATIO 1.2 (1.0-2.1); ALBUMIN 3.6 g/dL (3.5-5.0); ALT/SGPT 17 U/L (9-52); AST/SGOT 31 U/L (14-36); BLOOD UREA NITROGEN 10 mg/dL (7-17); CALCIUM 8.2 mg/dl (8.6-10.4); GFR NON-AFRICAN AMERICAN > 60
[2018-03-26 13:40] LABS: B-TYPE NATRIURETIC PEPTIDE 423 pg/mL (0-900)
[2018-03-26] MEDS ORDERED: Iodixanol 320 MG/ML 100 ML BOTTLE IV ONE (13:47)
[2018-03-26 14:00] LABS: SQUAMOUS EPITHIAL 33 /hpf (0-5); URINE BACTERIA RARE (<OCC); URINE BILIRUBIN NEGATIVE (NEGATIVE); URINE BLOOD NEGATIVE (NEGATIVE); URINE CLARITY Hazy (Clear); URINE COLOR Yellow (YELLOW); URINE GLUCOSE (UA) NORMAL (Normal); URINE LEUKOCYTE ESTERASE 2+ Leu/uL (Negative); URINE PROTEIN NEGATIVE (NEGATIVE)
[2018-03-26] MEDS ORDERED: Sodium Chloride 0.9% 500 ML IV ONE (14:07)
--- NOTE | 2018-03-26 16:34 | CT ---
Date of service: 03/26/2018 PROCEDURE: CT Abdomen and Pelvis.. HISTORY: Abdominal pain COMPARISON: Correlation made with CTA chest 02/20/2018 which partially imaged the upper abdomen.. Comparison also made with prior CT scan abdomen pelvis 4 12/21/2013. TECHNIQUE: Contiguous axial images of the abdomen and pelvis performed following intravenous injection of approximately 100 cc Visipaque 320 contrast material. Additional 2D sagittal and coronal reformats reformats generated. Radiation dose: Total exam DLP = 1079.31 mGy-cm. This CT exam was performed using one or more of the following dose reduction techniques: Automated exposure control, adjustment of the mA and/or kV according to patient size, and/or use of iterative reconstruction technique. FINDINGS: LOWER THORAX: There appears to be some mild passive/dependent type atelectasis both lung bases right greater than left of. There is also some mild bibasilar linear and curvilinear scarring. No focal consolidation. No evidence of effusion or basilar pneumothorax. Heart size within range of normal. No significant pericardial effusion. Small to medium size hiatal hernia. LIVER: Unremarkable. No gross lesion or ductal dilatation. GALLBLADDER AND BILE DUCTS: Unremarkable. PANCREAS: Pancreas appears atrophic and fatty replaced. No obvious pancreatic mass collection or calcification. SPLEEN: Spleen appears grossly unremarkable without obvious mass collection or calcification. Suspect a small adjacent splenule. ADRENALS: There is an elliptical shaped relatively low-attenuation left adrenal lesion which measures approximately 15 mm; rule out benign adenoma. The left adrenal gland appears essentially unchanged from prior exam. No obvious right adrenal lesions are identified. KIDNEYS AND URETERS: The kidneys demonstrate relatively symmetric late nephrograms a with dense contrast material in the collecting systems and proximal ureters consistent with early excretion phase; which limits evaluation for renal calculi in the collecting systems. The proximal ureters are slightly prominent with a minimal enhancement of the urothelium; rule out UTI. There is a small approximately 14.5 mm elliptical shaped low-attenuation lesion posterior cortex mid pole left kidney that exhibits Hounsfield units in the upper 30s; findings could represent a hyperdense cyst however correlation with renal ultrasound recommended to confirm. This focus was present on the prior exam though has increased in size. BLADDER: Urinary bladder incompletely distended which presumably in part accounts for thick-walled appearance however correlation with urinalysis recommended to exclude cystitis. REPRODUCTIVE: Hysterectomy. APPENDIX: Appendix unremarkable BOWEL: Evaluation of the bowel is limited due to the lack of oral contrast material. There is a small to medium size hiatal hernia.. Stomach is incompletely distended which in part accounts for thick-walled appearance. Visualized loops of small bowel exhibit normal contour and caliber. No evidence of acute mechanical small bowel obstruction. There are scattered colonic diverticula seen along the distal descending/sigmoid colon junction. No definitive radiographic evidence of acute diverticulitis. PERITONEUM: Due unremarkable. No fluid collection. No free air. Small fat containing umbilical hernia. LYMPH NODES: Unremarkable. No enlarged lymph nodes. VASCULATURE: Unremarkable. No aortic aneurysm. Mild-moderate aortic atherosclerotic calcification or mural plaque present. BONES: Moderate to significant multilevel degenerative spondylosis of the lumbar and to a lesser degree lower thoracic spine.. Stable appearing rounded within the left inferior pelvic bone again noted.. OTHER FINDINGS: None. IMPRESSION: Small elliptical shaped low-attenuation lesion posterior cortex mid pole left kidney likely represents hyperdense cyst however correlation with renal ultrasound recommended to confirm.. The proximal ureters are prominent with minimal urothelial enhancement. Rule out UTI. The bladder is also thick-walled in appearance in part due to incomplete distention though again cystitis/UTI should be excluded. Small relatively low-attenuation lesion left adrenal gland unchanged from prior exam. Hysterectomy. Diverticulosis without radiographic evidence of acute diverticulitis. Small to medium size hiatal hernia.
--- NOTE | 2018-03-26 18:38 | CP.PCM.HP ---
Past Patient History - Infectious Disease Hx of Infectious Diseases: None - Past Medical History & Family History Past Medical History?: Yes - Past Social History Smoking Status: Never Smoked - CARDIAC Hx Hypercholesterolemia: Yes - PULMONARY Hx Respiratory Disorders: No - NEUROLOGICAL Hx Neurological Disorder: No - HEENT Hx HEENT Problems: Yes Hx Cataracts: Yes (BOTH EYES) - RENAL Hx Chronic Kidney Disease: No - ENDOCRINE/METABOLIC Hx Endocrine Disorders: No - HEMATOLOGICAL/ONCOLOGICAL Hx Blood Disorders: No Hx Blood Transfusions: No - INTEGUMENTARY Hx Dermatological Problems: No - MUSCULOSKELETAL/RHEUMATOLOGICAL Hx Arthritis: Yes - GASTROINTESTINAL Hx Gastrointestinal Disorders: Yes Hx Gastroesophageal Reflux: Yes Hx Ulcer: Yes - GENITOURINARY/GYNECOLOGICAL Hx Genitourinary Disorders: No - PSYCHIATRIC Hx Substance Use: No - SURGICAL HISTORY Hx Coronary Stent: Yes (x1 AUGUST 2017) - ANESTHESIA Hx Anesthesia: Yes Hx Anesthesia Reactions: No Hx Malignant Hyperthermia: No Meds Allergies/Adverse Reactions: Allergies Allergy/AdvReac Type Severity Reaction Status Date / Time No Known Allergies Allergy Verified 03/26/18 10:51 Physical Exam - Constitutional Appears: Well - Head Exam Head Exam: ATRAUMATIC, NORMAL INSPECTION, NORMOCEPHALIC - Eye Exam Eye Exam: EOMI, Normal appearance, PERRL Pupil Exam: NORMAL ACCOMODATION, PERRL - ENT Exam ENT Exam: Mucous Membranes Moist, Normal Exam - Neck Exam Neck exam: Positive for: Normal Inspection - Respiratory Exam Respiratory Exam: Decreased Breath Sounds - Cardiovascular Exam Cardiovascular Exam: REGULAR RHYTHM, +S1, +S2 - GI/Abdominal Exam GI & Abdominal Exam: Diminished Bowel Sounds, Soft - Rectal Exam Rectal Exam: Deferred Results - Vital Signs Recent Vital Signs: Last Vital Signs Temp 99 F 03/26/18 17:35 Pulse 92 H 03/26/18 18:25 Resp 20 03/26/18 17:35 BP 116/68 03/26/18 17:35 Pulse Ox 92 L 03/26/18 18:06 - Labs Result Diagrams: 03/26/18 12:30 03/26/18 12:51 Labs: Laboratory Results - last 24 hr 03/26/18 03/26/18 03/26/18 12:30 12:51 12:51 WBC 5.3 RBC 3.94 Hgb 9.5 L Hct 29.9 L MCV 75.9 L MCH 24.2 L MCHC 31.9 L RDW 20.8 H Plt Count 184 MPV 9.8 Neut % (Auto) 79.0 H Lymph % (Auto) 13.0 L [place] % (Auto) 7.0 Eos % (Auto) 1.0 Baso % (Auto) 0.0 Neut # (Auto) 4.2 Lymph # (Auto) 0.7 L [place] # (Auto) 0.4 Eos # (Auto) 0.0 Baso # (Auto) 0.0 Sodium 135 Potassium 3.6 Chloride 106 Carbon Dioxide 23 Anion Gap 10 BUN 10 Creatinine 0.8 Est GFR ( Amer) > 60 Est GFR (Non-Af Amer) > 60 Random Glucose 94 Calcium 8.2 L Total Bilirubin 0.6 AST 31 ALT 17 Alkaline Phosphatase 71 Troponin I < 0.0120 NT-Pro-B Natriuret Pep 423 Total Protein 6.7 Albumin 3.6 Globulin 3.1 Albumin/Globulin Ratio 1.2 Urine Color Urine Clarity Urine pH Ur Specific [place] Urine Protein Urine Glucose (UA) Urine Ketones Urine Blood Urine Nitrate Urine Bilirubin Urine Urobilinogen Ur Leukocyte Esterase Urine WBC (Auto) Urine RBC (Auto) Ur Squamous Epith Cells Urine Bacteria Influenza Typ A,B (EIA) Pos for influenza a H 03/26/18 13:50 WBC RBC Hgb Hct MCV MCH MCHC RDW Plt Count MPV Neut % (Auto) Lymph % (Auto) [place] % (Auto) Eos % (Auto) Baso % (Auto) Neut # (Auto) Lymph # (Auto) [place] # (Auto) Eos # (Auto) Baso # (Auto) Sodium Potassium Chloride Carbon Dioxide Anion Gap BUN Creatinine Est GFR ( Amer) Est GFR (Non-Af Amer) Random Glucose Calcium Total Bilirubin AST ALT Alkaline Phosphatase Troponin I NT-Pro-B Natriuret Pep Total Protein Albumin Globulin Albumin/Globulin Ratio Urine Color Yellow Urine Clarity Hazy Urine pH 6.0 Ur Specific [place] 1.013 Urine Protein Negative Urine Glucose (UA) Normal Urine Ketones Negative Urine Blood Negative Urine Nitrate Negative Urine Bilirubin Negative Urine Urobilinogen 2.0 H Ur Leukocyte Esterase 2+ H Urine WBC (Auto) 5 Urine RBC (Auto) 3 Ur Squamous Epith Cells 33 H Urine Bacteria Rare Influenza Typ A,B (EIA)
[2018-03-27] MEDS: Enoxaparin 40 mg Syringe SC SCH (09:53)
[2018-03-27] MEDS: Pantoprazole 40 mg EC Tab PO SCH (09:54)
[2018-03-27] MEDS: Sodium Chloride 0.9% 1,000 ML IV SCH ×2 (09:54→22:47)
[2018-03-27] MEDS ORDERED: guaiFENesin 100 mg/5 ml Syrup UD PO PRN (09:54)
[2018-03-27] MEDS: Azithromycin 500 MG in Sodium Chloride 0.9% 250 ML IVPB SCH (09:59)
--- NOTE | 2018-03-27 13:34 | CP.PCM.CON ---
History of Present Illness - History of Present Illness History of Present Illness: dictated Past Patient History - Infectious Disease Hx of Infectious Diseases: None - Past Medical History & Family History Past Medical History?: Yes - Past Social History Smoking Status: Never Smoked - CARDIAC Hx Hypercholesterolemia: Yes - PULMONARY Hx Respiratory Disorders: No - NEUROLOGICAL Hx Neurological Disorder: No - HEENT Hx HEENT Problems: Yes Hx Cataracts: Yes (BOTH EYES) - RENAL Hx Chronic Kidney Disease: No - ENDOCRINE/METABOLIC Hx Endocrine Disorders: No - HEMATOLOGICAL/ONCOLOGICAL Hx Blood Disorders: No Hx Blood Transfusions: No - INTEGUMENTARY Hx Dermatological Problems: No - MUSCULOSKELETAL/RHEUMATOLOGICAL Hx Arthritis: Yes - GASTROINTESTINAL Hx Gastrointestinal Disorders: Yes Hx Gastroesophageal Reflux: Yes Hx Ulcer: Yes - GENITOURINARY/GYNECOLOGICAL Hx Genitourinary Disorders: No - PSYCHIATRIC Hx Substance Use: No - SURGICAL HISTORY Hx Coronary Stent: Yes (x1 AUGUST 2017) - ANESTHESIA Hx Anesthesia: Yes Hx Anesthesia Reactions: No Hx Malignant Hyperthermia: No Meds Allergies/Adverse Reactions: Allergies Allergy/AdvReac Type Severity Reaction Status Date / Time No Known Allergies Allergy Verified 03/26/18 10:51 - Medications Medications: Current Medications Acetaminophen (Tylenol 325mg Tab) 650 mg PO Q6 PRN PRN Reason: Headache Last Admin: 03/26/18 22:23 Dose: 650 mg Albuterol/Ipratropium (Duoneb 3 Mg/0.5 Mg (3 Ml) Ud) 3 ml INH RQ6 [facility] Enoxaparin Sodium (Lovenox) 40 mg SC DAILY [facility] Last Admin: 03/27/18 09:53 Dose: 40 mg Guaifenesin (Robitussin) 100 mg PO Q4H PRN PRN Reason: Cough Azithromycin 500 mg/ Sodium (Chloride) 250 mls @ 250 mls/hr IVPB Q24H [facility]; Protocol Last Admin: 03/27/18 09:59 Dose: 250 mls/hr Ceftriaxone Sodium 1 gm/ (Sodium Chloride) 100 mls @ 100 mls/hr IVPB Q24H [facility]; Protocol Last Admin: 03/27/18 09:53 Dose: 100 mls/hr Sodium Chloride (Sodium Chloride 0.9%) 1,000 mls @ 80 mls/hr IV .[id number] [facility] Last Admin: 03/27/18 09:54 Dose: 80 mls/hr Oseltamivir Phosphate (Tamiflu Cap) 75 mg PO BID [facility]; Protocol Stop: 03/31/18 21:12 Last Admin: 03/27/18 09:54 Dose: 75 mg Pantoprazole Sodium (Protonix Ec Tab) 40 mg PO DAILY [facility] Last Admin: 03/27/18 09:54 Dose: 40 mg Results - Vital Signs Recent Vital Signs: Last Vital Signs Temp 99.3 F 03/27/18 07:00 Pulse 97 H 03/27/18 08:19 Resp 20 03/27/18 07:00 BP 102/56 L 03/27/18 07:00 Pulse Ox 93 L 03/27/18 07:00 - Labs Result Diagrams: 03/26/18 12:30 03/26/18 12:51 Labs: Laboratory Results - last 24 hr 03/26/18 03/26/18 12:51 13:50 Troponin I < 0.0120 NT-Pro-B Natriuret Pep 423 Urine Color Yellow Urine Clarity Hazy Urine pH 6.0 Ur Specific [place] 1.013 Urine Protein Negative Urine Glucose (UA) Normal Urine Ketones Negative Urine Blood Negative Urine Nitrate Negative Urine Bilirubin Negative Urine Urobilinogen 2.0 H Ur Leukocyte Esterase 2+ H Urine WBC (Auto) 5 Urine RBC (Auto) 3 Ur Squamous Epith Cells 33 H Urine Bacteria Rare
--- NOTE | 2018-03-27 18:23 | CP.PCM.PN ---
Subjective - Date & Time of Evaluation Date of Evaluation: 03/27/18 Time of Evaluation: 09:30 - Subjective Subjective: clinically same Objective - Vital Signs/Intake and Output Vital Signs (last 24 hours): Temp Pulse Resp BP Pulse Ox 99.3 F 96 H 20 106/61 95 03/27/18 15:00 03/27/18 16:00 03/27/18 15:00 03/27/18 15:00 03/27/18 15:00 - Medications Medications: Current Medications Acetaminophen (Tylenol 325mg Tab) 650 mg PO Q6 PRN PRN Reason: Headache Last Admin: 03/26/18 22:23 Dose: 650 mg Albuterol/Ipratropium (Duoneb 3 Mg/0.5 Mg (3 Ml) Ud) 3 ml INH RQ6 [facility] Enoxaparin Sodium (Lovenox) 40 mg SC DAILY [facility] Last Admin: 03/27/18 09:53 Dose: 40 mg Guaifenesin (Robitussin) 100 mg PO Q4H PRN PRN Reason: Cough Azithromycin 500 mg/ Sodium (Chloride) 250 mls @ 250 mls/hr IVPB Q24H [facility]; Protocol Last Admin: 03/27/18 09:59 Dose: 250 mls/hr Ceftriaxone Sodium 1 gm/ (Sodium Chloride) 100 mls @ 100 mls/hr IVPB Q24H [facility]; Protocol Last Admin: 03/27/18 09:53 Dose: 100 mls/hr Sodium Chloride (Sodium Chloride 0.9%) 1,000 mls @ 80 mls/hr IV .[id number] [facility] Last Admin: 03/27/18 09:54 Dose: 80 mls/hr Oseltamivir Phosphate (Tamiflu Cap) 75 mg PO BID [facility]; Protocol Stop: 03/31/18 21:12 Last Admin: 03/27/18 17:57 Dose: 75 mg Pantoprazole Sodium (Protonix Ec Tab) 40 mg PO DAILY [facility] Last Admin: 03/27/18 09:54 Dose: 40 mg - Labs Labs: 03/26/18 12:30 03/26/18 12:51 - Constitutional Appears: Well - Head Exam Head Exam: ATRAUMATIC, NORMAL INSPECTION, NORMOCEPHALIC - Eye Exam Eye Exam: EOMI, Normal appearance, PERRL Pupil Exam: NORMAL ACCOMODATION, PERRL - ENT Exam ENT Exam: Mucous Membranes Moist, Normal Exam - Neck Exam Neck Exam: Full ROM, Normal Inspection. absent: Lymphadenopathy - Respiratory Exam Respiratory Exam: Decreased Breath Sounds - Cardiovascular Exam Cardiovascular Exam: REGULAR RHYTHM, +S1, +S2 - GI/Abdominal Exam GI & Abdominal Exam: Soft, Diminished Bowel Sounds - Rectal Exam Rectal Exam: Deferred
[2018-03-27] MEDS: Albuterol-Ipratrop 3 mg / 0.5 (3 ml) UD INH SCH (20:15)
--- NOTE | 2018-03-28 02:06 | CON ---
DATE: 03/27/2018 HISTORY OF PRESENT ILLNESS: The patient was seen today between 1 and 2. She is an 82-year-old female. She follows with Dr. Luis Alfredo Pink for many decades and she has history of GERD, high cholesterol. She came in with productive cough and yellowish sputum, was having headaches. She says she never has headaches and now she was having severe headaches and body aches, fever, abdominal pain, throat pain with nasal congestion and she was also having some nausea. She denied any vomiting or diarrhea and she was achy all over and they did a flu swab which came out positive. She does not suffer from asthma, but she says she was wheezing and she was miserable. She says she does not take flu injection and every time she took it, she got sick after that, so she did not have the flu swab this year. She does not have any history of asthma. She does have history of arthritis in the past and has had surgeries and she came in with a temp of 100.2, pulse of 103, and her saturation was only 92. She is afraid of putting oxygen and she says it gives her burning in her nose. So, she was not putting the oxygen. She did complain of lot of headaches and having nasal symptoms, not able to breathe, wheezing and she was hypotensive when she presented and she was brought in by ambulance. PAST MEDICAL HISTORY: Significant for severe arthritis, GERD, hypercholesterolemia. SURGICAL HISTORY: Having stents placed in August of 2017. FAMILY HISTORY: Not known. SOCIAL HISTORY: Negative for smoking or drinking or any drug abuse. MEDICATIONS: She was started on Tylenol. She was on DuoNeb, Zithromax, Rocephin, Lovenox, guaifenesin, Tamiflu 75 every 12 hours and also on pantoprazole and she was getting IV fluids 80 mL/hour. REVIEW OF SYSTEMS: She had fever, malaise. She denied any chills. She did have throat pain and she was coughing and she was bringing some yellowish thick sputum. She also had nausea and complaining of upper abdominal pain. Denied any vomiting or diarrhea. She did have significant headache and she says she has never had headaches and complained of head cold. Denied any urinary symptoms. She did have joint pains and she was actually hurting all over. PHYSICAL EXAMINATION: VITAL SIGNS: Her T-max was 99.3, pulse was 82, blood pressure 102/56, respirations were 20. GENERAL: She was able to communicate well, alert and oriented x3. HEENT: Head is atraumatic, normocephalic. Pupils were reacting to light. Nose appeared with turbinates swollen. Tongue was moist. NECK: Supple. JVP was flat. There was no lymphadenopathy. Trachea was central. LUNGS: Had wheezing as well as some crackles on the left lung. Fine crackles were heard. HEART: S1, S2. Regular. No murmurs appreciated. ABDOMEN: Soft, nontender. No guarding, no rigidity present. EXTREMITIES: She was hurting all over and was very tender. LABORATORY DATA: Labs were noted. Labs show white count was 5.3, hemoglobin 9.5, hematocrit 29.9. She is anemic. Platelets are 184 and her BUN and creatinine were unremarkable. The proBNP was 423 and the troponin was negative. UA showed 2+ leukocytes and squamous cells 33, bacteria rare. So, it was a poor sample, and she was positive for influenza A and she had a chest x-ray. Chest x-ray shows no acute pulmonary disease, but she has been wheezing and she did have respiratory signs. On the CT, there was passive dependent atelectases, both lung bases, right greater than left. There was also some mild curvilinear scarring, no focal consolidation, no evidence of effusion. Her bladder was incompletely filled, thick-walled but UA is poor sample. I am going to repeat it again and we will continue with both the drugs at this time. ASSESSMENT: My impression is that she does have influenza A and she had significant acute bronchitis with wheezing and she does not have any history of asthma in the past, hyperactive airways, wheezing, and needs to be monitored for she may be developing pneumonia and also we need to check her urine again as this was a poor sample and send for culture. We will follow with Dr. Lupis Xiao. Padmini Montana MD
[2018-03-28] MEDS: Albuterol-Ipratrop 3 mg / 0.5 (3 ml) UD INH SCH ×4 (03:06→20:15)
[2018-03-28 07:30] LABS: HEMOGLOBIN 8.7 g/dL (11.0-16.0); RED CELL DISTRIBUTION WIDTH 21.1 % (11.5-14.5); WHITE BLOOD COUNT 3.3 K/uL (4.8-10.8)
[2018-03-28 07:40] LABS: MEAN CELL VOLUME 76.6 fL (81.0-99.0); MEAN CORPUSCULAR HEMOGLOBIN 24.7 pg (27.0-31.0); MEAN CORPUSCULAR HGB CONC 32.3 g/dL (33.0-37.0); MEAN PLATELET VOLUME 10.1 fL (7.2-11.7); RBC 3.51 Mil/uL (3.80-5.20)
[2018-03-28 08:14] LABS: ALB/GLOB RATIO 1.2 (1.0-2.1); ALBUMIN 3.1 g/dL (3.5-5.0); ALT/SGPT 16 U/L (9-52); AST/SGOT 23 U/L (14-36); BLOOD UREA NITROGEN 11 mg/dL (7-17); CALCIUM 7.8 mg/dl (8.6-10.4); GFR NON-AFRICAN AMERICAN > 60
[2018-03-28 08:53] LABS: LYMPH # 0.7 K/uL (1.0-4.3); MONO # 0.6 K/uL (0.0-0.8)
[2018-03-28] MEDS: Enoxaparin 40 mg Syringe SC SCH (09:56)
[2018-03-28] MEDS: Pantoprazole 40 mg EC Tab PO SCH (09:56)
[2018-03-28] MEDS: Azithromycin 500 MG in Sodium Chloride 0.9% 250 ML IVPB SCH (10:00)
[2018-03-28] MEDS ORDERED: Albuterol-Ipratrop 3 mg / 0.5 (3 ml) UD INH PRN (11:29)
[2018-03-28] MEDS: MethylPREDNISolone 40 mg Vial IVP SCH ×2 (12:54→19:51)
--- NOTE | 2018-03-28 12:56 | CP.PCM.PN ---
Subjective - Date & Time of Evaluation Date of Evaluation: 03/28/18 Time of Evaluation: 09:45 - Subjective Subjective: clinically same Objective - Vital Signs/Intake and Output Vital Signs (last 24 hours): Temp Pulse Resp BP Pulse Ox 98.7 F 91 H 20 115/69 96 03/28/18 07:00 03/28/18 07:00 03/28/18 07:00 03/28/18 07:00 03/28/18 07:00 - Medications Medications: Current Medications Acetaminophen (Tylenol 325mg Tab) 650 mg PO Q6 PRN PRN Reason: Headache Last Admin: 03/26/18 22:23 Dose: 650 mg Albuterol/Ipratropium (Duoneb 3 Mg/0.5 Mg (3 Ml) Ud) 3 ml INH RQ6 [facility] Last Admin: 03/28/18 07:45 Dose: 3 ml Albuterol/Ipratropium (Duoneb 3 Mg/0.5 Mg (3 Ml) Ud) 3 ml INH RQ4 PRN PRN Reason: Wheezing Enoxaparin Sodium (Lovenox) 40 mg SC DAILY [facility] Last Admin: 03/28/18 09:56 Dose: 40 mg Fluticasone/Vilanterol (Breo Ellipta 100-25 Mcg Inh) 1 puff INH RQ12 [facility] Guaifenesin (Robitussin) 100 mg PO Q4H PRN PRN Reason: Cough Azithromycin 500 mg/ Sodium (Chloride) 250 mls @ 250 mls/hr IVPB Q24H [facility]; Protocol Last Admin: 03/28/18 10:00 Dose: 250 mls/hr Sodium Chloride (Sodium Chloride 0.9%) 1,000 mls @ 80 mls/hr IV .[id number] [facility] Last Admin: 03/27/18 22:47 Dose: Not Given Methylprednisolone (Solu-Medrol) 40 mg IVP Q8H [facility] Last Admin: 03/28/18 12:54 Dose: 40 mg Montelukast Sodium (Singulair) 10 mg PO HS [facility] Oseltamivir Phosphate (Tamiflu Cap) 75 mg PO BID [facility]; Protocol Stop: 03/31/18 21:12 Last Admin: 03/28/18 09:56 Dose: 75 mg Pantoprazole Sodium (Protonix Ec Tab) 40 mg PO DAILY [facility] Last Admin: 03/28/18 09:56 Dose: 40 mg - Labs Labs: 03/28/18 07:18 03/28/18 07:18 - Constitutional Appears: Well - Head Exam Head Exam: ATRAUMATIC, NORMAL INSPECTION, NORMOCEPHALIC - Eye Exam Eye Exam: EOMI, Normal appearance, PERRL Pupil Exam: NORMAL ACCOMODATION, PERRL - ENT Exam ENT Exam: Mucous Membranes Moist, Normal Exam - Neck Exam Neck Exam: Full ROM, Normal Inspection. absent: Lymphadenopathy - Respiratory Exam Respiratory Exam: Decreased Breath Sounds - Cardiovascular Exam Cardiovascular Exam: REGULAR RHYTHM, +S1, +S2 - GI/Abdominal Exam GI & Abdominal Exam: Soft, Diminished Bowel Sounds - Rectal Exam Rectal Exam: Deferred
--- NOTE | 2018-03-28 13:22 | CP.PCM.CON ---
History of Present Illness - History of Present Illness History of Present Illness: 82yo female, with history of GERD, high cholesterol presented with productive cough with yellow phlegm, throat pain, headache, bodyaches, fever, and abdominal pain. She also reports nausea but denies any vomiting or diarrhea. No additional complaints. Pt is influenza A positive and is found to be wheezing. Pt denies hx of wheezing Review of Systems - Review of Systems All systems: reviewed and no additional remarkable complaints except (as mentioned in HPI) Past Patient History - Infectious Disease Hx of Infectious Diseases: None - Past Medical History & Family History Past Medical History?: Yes - Past Social History Smoking Status: Never Smoked - CARDIAC Hx Hypercholesterolemia: Yes - PULMONARY Hx Respiratory Disorders: No - NEUROLOGICAL Hx Neurological Disorder: No - HEENT Hx HEENT Problems: Yes Hx Cataracts: Yes (BOTH EYES) - RENAL Hx Chronic Kidney Disease: No - ENDOCRINE/METABOLIC Hx Endocrine Disorders: No - HEMATOLOGICAL/ONCOLOGICAL Hx Blood Disorders: No Hx Blood Transfusions: No - INTEGUMENTARY Hx Dermatological Problems: No - MUSCULOSKELETAL/RHEUMATOLOGICAL Hx Arthritis: Yes - GASTROINTESTINAL Hx Gastrointestinal Disorders: Yes Hx Gastroesophageal Reflux: Yes Hx Ulcer: Yes - GENITOURINARY/GYNECOLOGICAL Hx Genitourinary Disorders: No - PSYCHIATRIC Hx Substance Use: No - SURGICAL HISTORY Hx Coronary Stent: Yes (x1 AUGUST 2017) - ANESTHESIA Hx Anesthesia: Yes Hx Anesthesia Reactions: No Hx Malignant Hyperthermia: No Meds Allergies/Adverse Reactions: Allergies Allergy/AdvReac Type Severity Reaction Status Date / Time No Known Allergies Allergy Verified 03/26/18 10:51 - Medications Medications: Current Medications Acetaminophen (Tylenol 325mg Tab) 650 mg PO Q6 PRN PRN Reason: Headache Last Admin: 03/26/18 22:23 Dose: 650 mg Albuterol/Ipratropium (Duoneb 3 Mg/0.5 Mg (3 Ml) Ud) 3 ml INH RQ6 [facility] Last Admin: 03/28/18 13:10 Dose: 3 ml Albuterol/Ipratropium (Duoneb 3 Mg/0.5 Mg (3 Ml) Ud) 3 ml INH RQ4 PRN PRN Reason: Wheezing Enoxaparin Sodium (Lovenox) 40 mg SC DAILY [facility] Last Admin: 03/28/18 09:56 Dose: 40 mg Fluticasone/Vilanterol (Breo Ellipta 100-25 Mcg Inh) 1 puff INH RQ24 [facility] Guaifenesin (Robitussin) 100 mg PO Q4H PRN PRN Reason: Cough Azithromycin 500 mg/ Sodium (Chloride) 250 mls @ 250 mls/hr IVPB Q24H [facility]; Protocol Last Admin: 03/28/18 10:00 Dose: 250 mls/hr Sodium Chloride (Sodium Chloride 0.9%) 1,000 mls @ 80 mls/hr IV .[id number] [facility] Last Admin: 03/27/18 22:47 Dose: Not Given Methylprednisolone (Solu-Medrol) 40 mg IVP Q8H [facility] Last Admin: 03/28/18 12:54 Dose: 40 mg Montelukast Sodium (Singulair) 10 mg PO HS [facility] Oseltamivir Phosphate (Tamiflu Cap) 75 mg PO BID [facility]; Protocol Stop: 03/31/18 21:12 Last Admin: 03/28/18 09:56 Dose: 75 mg Pantoprazole Sodium (Protonix Ec Tab) 40 mg PO DAILY [facility] Last Admin: 03/28/18 09:56 Dose: 40 mg Physical Exam - Head Exam Head Exam: NORMAL INSPECTION - Eye Exam Eye Exam: Normal appearance - ENT Exam ENT Exam: Mucous Membranes Moist - Respiratory Exam Respiratory Exam: Rhonchi, Wheezes - Cardiovascular Exam Cardiovascular Exam: REGULAR RHYTHM, +S1, +S2 - GI/Abdominal Exam GI & Abdominal Exam: Normal Bowel Sounds, Soft - Extremities Exam Extremities exam: Positive for: normal inspection - Neurological Exam Neurological exam: Alert, Oriented x3 - Psychiatric Exam Psychiatric exam: Normal Affect, Normal Mood - Skin Skin Exam: Normal Color Results - Vital Signs Recent Vital Signs: Last Vital Signs Temp 98.7 F 03/28/18 07:00 Pulse 91 H 03/28/18 07:00 Resp 20 03/28/18 07:00 BP 115/69 03/28/18 07:00 Pulse Ox 96 03/28/18 07:00 - Labs Result Diagrams: 03/28/18 07:18 03/28/18 07:18 Labs: Laboratory Results - last 24 hr 03/28/18 03/28/18 07:18 07:18 WBC 3.3 L RBC 3.51 L Hgb 8.7 L Hct 26.9 L MCV 76.6 L MCH 24.7 L MCHC 32.3 L RDW 21.1 H Plt Count 147 MPV 10.1 Neut % (Auto) 59.0 Lymph % (Auto) 22.0 [place] % (Auto) 1.0 Eos % (Auto) 2.0 Baso % (Auto) 0.0 Neut # (Auto) 2.0 Lymph # (Auto) 0.7 L [place] # (Auto) 0.6 Eos # (Auto) 0.0 Baso # (Auto) 0.0 Sodium 136 Potassium 3.7 Chloride 109 H Carbon Dioxide 25 Anion Gap 7 L BUN 11 Creatinine 0.8 Est GFR ( Amer) > 60 Est GFR (Non-Af Amer) > 60 Random Glucose 86 Calcium 7.8 L Total Bilirubin 0.3 AST 23 ALT 16 Alkaline Phosphatase 60 Total Protein 5.7 L Albumin 3.1 L Globulin 2.6 Albumin/Globulin Ratio 1.2 Assessment & Plan (1) Asthma Status: Acute (2) Influenza A Status: Acute - Assessment and Plan (Free Text) Plan: Oseltamivir 75 mg BID Breo Ellipta Bronchodilators Continue Abx IV steroids May need Repeat CXR on Thursday Follow cultures DVT/GI prophalaxis
[2018-03-28] MEDS ORDERED: Sodium Chloride 0.9% 1,000 ML IV SCH (17:45)
--- NOTE | 2018-03-28 18:33 | CP.PCM.PN ---
Subjective - Date & Time of Evaluation Date of Evaluation: 03/28/18 Time of Evaluation: 14:00 - Subjective Subjective: dictated Objective - Vital Signs/Intake and Output Vital Signs (last 24 hours): Temp Pulse Resp BP Pulse Ox 97.3 F L 98 H 20 116/70 97 03/28/18 15:20 03/28/18 15:20 03/28/18 15:20 03/28/18 15:20 03/28/18 15:20 - Medications Medications: Current Medications Acetaminophen (Tylenol 325mg Tab) 650 mg PO Q6 PRN PRN Reason: Headache Last Admin: 03/26/18 22:23 Dose: 650 mg Albuterol/Ipratropium (Duoneb 3 Mg/0.5 Mg (3 Ml) Ud) 3 ml INH RQ6 [facility] Last Admin: 03/28/18 13:10 Dose: 3 ml Albuterol/Ipratropium (Duoneb 3 Mg/0.5 Mg (3 Ml) Ud) 3 ml INH RQ4 PRN PRN Reason: Wheezing Enoxaparin Sodium (Lovenox) 40 mg SC DAILY [facility] Last Admin: 03/28/18 09:56 Dose: 40 mg Fluticasone/Vilanterol (Breo Ellipta 100-25 Mcg Inh) 1 puff INH RQ24 [facility] Guaifenesin (Robitussin) 100 mg PO Q4H PRN PRN Reason: Cough Azithromycin 500 mg/ Sodium (Chloride) 250 mls @ 250 mls/hr IVPB Q24H [facility]; Protocol Last Admin: 03/28/18 10:00 Dose: 250 mls/hr Sodium Chloride (Sodium Chloride 0.9%) 1,000 mls @ 40 mls/hr IV .Q24H [facility] Last Admin: 03/28/18 18:05 Dose: 40 mls/hr Methylprednisolone (Solu-Medrol) 40 mg IVP Q8H [facility] Last Admin: 03/28/18 12:54 Dose: 40 mg Montelukast Sodium (Singulair) 10 mg PO HS [facility] Oseltamivir Phosphate (Tamiflu Cap) 75 mg PO BID [facility]; Protocol Stop: 03/31/18 21:12 Last Admin: 03/28/18 18:05 Dose: 75 mg Pantoprazole Sodium (Protonix Ec Tab) 40 mg PO DAILY [facility] Last Admin: 03/28/18 09:56 Dose: 40 mg - Labs Labs: 03/28/18 07:18 03/28/18 07:18
--- NOTE | 2018-03-28 21:48 | PN ---
DATE: 03/28/2018 SUBJECTIVE: The patient was wheezing a lot when she was seen. She was only getting 5 mL of fluids. Her fluid had been reduced and she was having yellowish phlegm. Headache and body aches were little better. However, she was wheezing a lot today and she denied any asthma in the past, so we discontinued IV fluids and we started respiratory treatments and when I am writing my note, she is being seen by Dr. Esposito who will continue to follow her respiratory issues. She has positive influenza and has been wheezing a lot. PHYSICAL EXAMINATION: VITAL SIGNS: T-max is 97.3, pulse 98, blood pressure 116/70, respirations are 20. HEAD: Atraumatic, normocephalic. NECK: Supple. LUNGS: Had bilateral wheezing present. HEART: S1, S2, was regular. ABDOMEN: Soft, nontender. No guarding, no rigidity present. EXTREMITIES: Had no edema. Her aches and pains are better. LABORATORY DATA: White count is 3.3 today, hemoglobin 8.7, hematocrit 26.9, platelet count is 147. Sodium is 136, potassium 3.7, chlorides are 109, CO2 is 25, anion gap is 7, BUN is 11, creatinine 0.8, albumin is 3.1. UA shows 2+ leukocytes and squamous cells and we repeated the UA, urine C and S again, and she is positive for influenza and has been having acute asthmatic bronchitis at this time with possible UTI. PLAN: We are waiting for the repeat urine culture report which is negative. Blood culture x2 are also negative at this time. We will continue Tamiflu and she is on Rocephin as well as Zithromax at this time and she was started on steroids to control her wheezing as she appeared worse than yesterday. Padmini Montana MD
[2018-03-29] MEDS: Albuterol-Ipratrop 3 mg / 0.5 (3 ml) UD INH SCH ×4 (04:48→19:01)
[2018-03-29] MEDS: MethylPREDNISolone 40 mg Vial IVP SCH ×2 (05:26→20:55)
[2018-03-29] MEDS: Fluticasone-Vilanterol 100/25mcg Diskus INH SCH (07:10)
[2018-03-29 07:12] LABS: HEMOGLOBIN 8.9 g/dL (11.0-16.0); MEAN CELL VOLUME 76.1 fL (81.0-99.0); MEAN CORPUSCULAR HEMOGLOBIN 24.6 pg (27.0-31.0); MEAN CORPUSCULAR HGB CONC 32.3 g/dL (33.0-37.0); RBC 3.61 Mil/uL (3.80-5.20); RED CELL DISTRIBUTION WIDTH 21.2 % (11.5-14.5); WHITE BLOOD COUNT 3.2 K/uL (4.8-10.8)
[2018-03-29 07:54] LABS: BLOOD UREA NITROGEN 13 mg/dL (7-17); CALCIUM 8.6 mg/dl (8.6-10.4); GFR NON-AFRICAN AMERICAN > 60
[2018-03-29 08:05] LABS: B-TYPE NATRIURETIC PEPTIDE 485 pg/mL (0-900)
[2018-03-29 09:16] LABS: LYMPH # 0.9 K/uL (1.0-4.3); MONO # 0.2 K/uL (0.0-0.8); NEUT # 2.1 K/uL (1.8-7.0)
--- NOTE | 2018-03-29 09:44 | CARD ---
APPROVED REPORT Date of service: 03/26/2018 EKG Measurement Heart [id number] <Conclusion> Sinus tachycardia Technically Poor. Cannot interpret lateral leads. Advise repeat.
[2018-03-29] MEDS: Enoxaparin 40 mg Syringe SC SCH (10:26)
[2018-03-29] MEDS: Pantoprazole 40 mg EC Tab PO SCH (10:26)
[2018-03-29] MEDS: Azithromycin 500 MG in Sodium Chloride 0.9% 250 ML IVPB SCH (11:39)
--- NOTE | 2018-03-29 14:18 | CP.PCM.PN ---
Subjective - Date & Time of Evaluation Date of Evaluation: 03/29/18 Time of Evaluation: 10:45 - Subjective Subjective: clinically same Objective - Vital Signs/Intake and Output Vital Signs (last 24 hours): Temp Pulse Resp BP Pulse Ox 97.6 F 93 H 20 158/87 H 99 03/29/18 07:00 03/29/18 07:00 03/29/18 07:00 03/29/18 07:00 03/29/18 07:00 Intake and Output: 03/29/18 03/29/18 06:59 18:59 Output Total 1200 Balance -1200 - Medications Medications: Current Medications Acetaminophen (Tylenol 325mg Tab) 650 mg PO Q6 PRN PRN Reason: Headache Last Admin: 03/26/18 22:23 Dose: 650 mg Albuterol/Ipratropium (Duoneb 3 Mg/0.5 Mg (3 Ml) Ud) 3 ml INH RQ6 [facility] Last Admin: 03/29/18 07:10 Dose: 3 ml Albuterol/Ipratropium (Duoneb 3 Mg/0.5 Mg (3 Ml) Ud) 3 ml INH RQ4 PRN PRN Reason: Wheezing Docusate Sodium (Colace) 100 mg PO DAILY [facility] Last Admin: 03/29/18 10:26 Dose: 100 mg Enoxaparin Sodium (Lovenox) 40 mg SC DAILY [facility] Last Admin: 03/29/18 10:26 Dose: 40 mg Fluticasone/Vilanterol (Breo Ellipta 100-25 Mcg Inh) 1 puff INH RQ24 [facility] Last Admin: 03/29/18 07:10 Dose: 1 puff Guaifenesin (Robitussin) 100 mg PO Q4H PRN PRN Reason: Cough Last Admin: 03/29/18 10:26 Dose: 100 mg Azithromycin 500 mg/ Sodium (Chloride) 250 mls @ 250 mls/hr IVPB Q24H [facility]; Protocol Last Admin: 03/29/18 11:39 Dose: 250 mls/hr Ceftriaxone Sodium 1 gm/ (Sodium Chloride) 100 mls @ 100 mls/hr IVPB DAILY [facility]; Protocol Last Admin: 03/29/18 10:49 Dose: 100 mls/hr Methylprednisolone (Solu-Medrol) 40 mg IVP Q8H [facility] Last Admin: 03/29/18 05:26 Dose: 40 mg Montelukast Sodium (Singulair) 10 mg PO HS [facility] Last Admin: 03/28/18 21:31 Dose: 10 mg Oseltamivir Phosphate (Tamiflu Cap) 75 mg PO BID [facility]; Protocol Stop: 03/31/18 21:12 Last Admin: 03/29/18 10:26 Dose: 75 mg Pantoprazole Sodium (Protonix Ec Tab) 40 mg PO DAILY [facility] Last Admin: 03/29/18 10:26 Dose: 40 mg - Labs Labs: 03/29/18 07:05 03/29/18 07:05
[2018-03-29 14:31] LABS: SQUAMOUS EPITHIAL < 1 /hpf (0-5); URINE BACTERIA RARE (<OCC); URINE BILIRUBIN NEGATIVE (NEGATIVE); URINE BLOOD NEGATIVE (NEGATIVE); URINE CLARITY Clear (Clear); URINE COLOR Yellow (YELLOW); URINE GLUCOSE (UA) NORMAL (Normal); URINE LEUKOCYTE ESTERASE NEG Leu/uL (Negative); URINE PROTEIN NEGATIVE (NEGATIVE); URINE UROBILINOGEN NORMAL mg/dL (0.2-1.0)
--- NOTE | 2018-03-29 18:23 | CP.PCM.PN ---
Subjective - Date & Time of Evaluation Date of Evaluation: 03/29/18 Time of Evaluation: 18:21 - Subjective Subjective: Patient is seen and examined No events overnight Objective - Vital Signs/Intake and Output Vital Signs (last 24 hours): Temp Pulse Resp BP Pulse Ox 97.7 F 90 20 143/73 96 03/29/18 16:24 03/29/18 16:24 03/29/18 16:24 03/29/18 16:24 03/29/18 16:24 Intake and Output: 03/29/18 03/29/18 06:59 18:59 Output Total 1200 Balance -1200 - Medications Medications: Current Medications Acetaminophen (Tylenol 325mg Tab) 650 mg PO Q6 PRN PRN Reason: Headache Last Admin: 03/26/18 22:23 Dose: 650 mg Albuterol/Ipratropium (Duoneb 3 Mg/0.5 Mg (3 Ml) Ud) 3 ml INH RQ6 [facility] Last Admin: 03/29/18 13:25 Dose: 3 ml Albuterol/Ipratropium (Duoneb 3 Mg/0.5 Mg (3 Ml) Ud) 3 ml INH RQ4 PRN PRN Reason: Wheezing Docusate Sodium (Colace) 100 mg PO DAILY [facility] Last Admin: 03/29/18 10:26 Dose: 100 mg Enoxaparin Sodium (Lovenox) 40 mg SC DAILY [facility] Last Admin: 03/29/18 10:26 Dose: 40 mg Fluticasone/Vilanterol (Breo Ellipta 100-25 Mcg Inh) 1 puff INH RQ24 [facility] Last Admin: 03/29/18 07:10 Dose: 1 puff Guaifenesin (Robitussin) 100 mg PO Q4H PRN PRN Reason: Cough Last Admin: 03/29/18 10:26 Dose: 100 mg Azithromycin 500 mg/ Sodium (Chloride) 250 mls @ 250 mls/hr IVPB Q24H [facility]; Protocol Last Admin: 03/29/18 11:39 Dose: 250 mls/hr Ceftriaxone Sodium 1 gm/ (Sodium Chloride) 100 mls @ 100 mls/hr IVPB DAILY [facility]; Protocol Last Admin: 03/29/18 10:49 Dose: 100 mls/hr Methylprednisolone (Solu-Medrol) 40 mg IVP Q8H [facility] Last Admin: 03/29/18 05:26 Dose: 40 mg Montelukast Sodium (Singulair) 10 mg PO HS [facility] Last Admin: 03/28/18 21:31 Dose: 10 mg Oseltamivir Phosphate (Tamiflu Cap) 75 mg PO BID [facility]; Protocol Stop: 03/31/18 21:12 Last Admin: 03/29/18 18:04 Dose: 75 mg Pantoprazole Sodium (Protonix Ec Tab) 40 mg PO DAILY [facility] Last Admin: 03/29/18 10:26 Dose: 40 mg - Labs Labs: 03/29/18 07:05 03/29/18 07:05 - Head Exam Head Exam: NORMAL INSPECTION - Eye Exam Eye Exam: Normal appearance - ENT Exam ENT Exam: Mucous Membranes Moist - Respiratory Exam Respiratory Exam: Prolonged Expiratory Phase - Cardiovascular Exam Cardiovascular Exam: REGULAR RHYTHM, +S1, +S2 - GI/Abdominal Exam GI & Abdominal Exam: Soft, Normal Bowel Sounds - Extremities Exam Extremities Exam: Normal Inspection - Neurological Exam Neurological Exam: Alert, Oriented x3 Assessment and Plan (1) Asthma Status: Acute (2) Influenza A Status: Acute - Assessment and Plan (Free Text) Plan: Oseltamivir 75 mg BID Breo Ellipta Bronchodilators Continue Abx IV steroids Chest x-ray in a.m. DVT/GI prophalaxis
--- NOTE | 2018-03-29 20:23 | CP.PCM.PN ---
Subjective - Date & Time of Evaluation Date of Evaluation: 03/29/18 Time of Evaluation: 14:30 - Subjective Subjective: dictated Objective - Vital Signs/Intake and Output Vital Signs (last 24 hours): Temp Pulse Resp BP Pulse Ox 97.7 F 90 20 143/73 96 03/29/18 16:24 03/29/18 16:24 03/29/18 16:24 03/29/18 16:24 03/29/18 16:24 - Medications Medications: Current Medications Acetaminophen (Tylenol 325mg Tab) 650 mg PO Q6 PRN PRN Reason: Headache Last Admin: 03/26/18 22:23 Dose: 650 mg Albuterol/Ipratropium (Duoneb 3 Mg/0.5 Mg (3 Ml) Ud) 3 ml INH RQ6 [facility] Last Admin: 03/29/18 19:01 Dose: 3 ml Albuterol/Ipratropium (Duoneb 3 Mg/0.5 Mg (3 Ml) Ud) 3 ml INH RQ4 PRN PRN Reason: Wheezing Docusate Sodium (Colace) 100 mg PO DAILY [facility] Last Admin: 03/29/18 10:26 Dose: 100 mg Enoxaparin Sodium (Lovenox) 40 mg SC DAILY [facility] Last Admin: 03/29/18 10:26 Dose: 40 mg Fluticasone/Vilanterol (Breo Ellipta 100-25 Mcg Inh) 1 puff INH RQ24 [facility] Last Admin: 03/29/18 07:10 Dose: 1 puff Guaifenesin (Robitussin) 100 mg PO Q4H PRN PRN Reason: Cough Last Admin: 03/29/18 10:26 Dose: 100 mg Azithromycin 500 mg/ Sodium (Chloride) 250 mls @ 250 mls/hr IVPB Q24H [facility]; Protocol Last Admin: 03/29/18 11:39 Dose: 250 mls/hr Ceftriaxone Sodium 1 gm/ (Sodium Chloride) 100 mls @ 100 mls/hr IVPB DAILY [facility]; Protocol Last Admin: 03/29/18 10:49 Dose: 100 mls/hr Methylprednisolone (Solu-Medrol) 40 mg IVP Q8H [facility] Last Admin: 03/29/18 05:26 Dose: 40 mg Montelukast Sodium (Singulair) 10 mg PO HS [facility] Last Admin: 02/17/19 21:31 Dose: 10 mg Oseltamivir Phosphate (Tamiflu Cap) 75 mg PO BID [facility]; Protocol Stop: 03/31/18 21:12 Last Admin: 03/29/18 18:04 Dose: 75 mg Pantoprazole Sodium (Protonix Ec Tab) 40 mg PO DAILY [facility] Last Admin: 03/29/18 10:26 Dose: 40 mg - Labs Labs: 03/29/18 07:05 03/29/18 07:05
--- NOTE | 2018-03-29 23:04 | PN ---
DATE: 03/29/2018 SUBJECTIVE: The patient was sitting out of bed today. She was little better, but she was still wheezing. She denied any headache today. She said she did have some cough in the morning, and she says that wheezing is there, but still little better, and she denied any joint pains. PHYSICAL EXAMINATION: VITAL SIGNS: T-max is 97.7, pulse 90, blood pressure 143/73, respirations are 20. HEENT: Head is atraumatic and normocephalic. She is alert, awake. NECK: Supple. LUNGS: Bilateral wheeze present. No crackles. HEART: S1, S2 are regular. ABDOMEN: Soft, nontender. No guarding, no rigidity present. EXTREMITIES: Have no edema. LABORATORY DATA: Labs show white count is 3.2 today, hemoglobin 8.9, hematocrit 27.5, platelet count is 169, and BUN is 13, creatinine 0.7. Blood cultures, urine culture have all been negative. ASSESSMENT AND PLAN: She is due to have a chest x-ray tomorrow. We will review that, and at this time, we will continue the antibiotics she is getting. She came on 03/26/2018, so today is the third day of her full day of her IV antibiotics at this time. Padmini Montana MD
[2018-03-30] MEDS: Albuterol-Ipratrop 3 mg / 0.5 (3 ml) UD INH SCH ×3 (01:05→13:40)
[2018-03-30] MEDS: MethylPREDNISolone 40 mg Vial IVP SCH (04:28)
[2018-03-30] MEDS: Fluticasone-Vilanterol 100/25mcg Diskus INH SCH (07:30)
[2018-03-30 08:18] VITALS: BP 133/75; PULSE 97; RESP 200; TEMP 98; O2SAT 98
--- NOTE | 2018-03-30 09:33 | RAD ---
HISTORY: Pneumonia COMPARISON: Chest x-ray performed 03/26/18 TECHNIQUE: Chest PA and lateral FINDINGS: Examination limited by habitus. LUNGS: Bilateral hilar prominence. Linear atelectasis, left mid lung zone. Please note that chest x-ray has limited sensitivity for the detection of pulmonary masses. PLEURA: No significant pleural effusion identified. No definite pneumothorax . CARDIOVASCULAR: Heart size appears within normal limits. Atherosclerotic calcifications of the aorta. OSSEOUS STRUCTURES: Degenerative changes. VISUALIZED UPPER ABDOMEN: Unremarkable. OTHER FINDINGS: None. IMPRESSION: Bilateral hilar prominence. Linear atelectasis, left mid lung zone.
[2018-03-30] MEDS: Pantoprazole 40 mg EC Tab PO SCH (09:44)
[2018-03-30] MEDS: Enoxaparin 40 mg Syringe SC SCH (09:45)
[2018-03-30] MEDS: Azithromycin 500 MG in Sodium Chloride 0.9% 250 ML IVPB SCH (10:50)
--- NOTE | 2018-03-30 15:30 | CP.PCM.PN ---
Subjective - Date & Time of Evaluation Date of Evaluation: 03/30/18 Time of Evaluation: 15:20 - Subjective Subjective: dictated Objective - Vital Signs/Intake and Output Vital Signs (last 24 hours): Temp Pulse Resp BP Pulse Ox 98 F 97 H 200 H 133/75 98 03/30/18 08:00 03/30/18 08:00 03/30/18 08:00 03/30/18 08:00 03/30/18 08:00 Intake and Output: 03/30/18 03/30/18 06:59 18:59 Intake Total 700 Balance 700 - Medications Medications: Current Medications Acetaminophen (Tylenol 325mg Tab) 650 mg PO Q6 PRN PRN Reason: Headache Last Admin: 03/26/18 22:23 Dose: 650 mg Albuterol/Ipratropium (Duoneb 3 Mg/0.5 Mg (3 Ml) Ud) 3 ml INH RQ6 [facility] Last Admin: 03/30/18 13:40 Dose: 3 ml Albuterol/Ipratropium (Duoneb 3 Mg/0.5 Mg (3 Ml) Ud) 3 ml INH RQ4 PRN PRN Reason: Wheezing Docusate Sodium (Colace) 100 mg PO DAILY [facility] Last Admin: 03/30/18 09:44 Dose: 100 mg Enoxaparin Sodium (Lovenox) 40 mg SC DAILY [facility] Last Admin: 03/30/18 09:45 Dose: 40 mg Fluticasone/Vilanterol (Breo Ellipta 100-25 Mcg Inh) 1 puff INH RQ24 [facility] Last Admin: 03/30/18 07:30 Dose: 1 puff Guaifenesin (Robitussin) 100 mg PO Q4H PRN PRN Reason: Cough Last Admin: 03/29/18 10:26 Dose: 100 mg Azithromycin 500 mg/ Sodium (Chloride) 250 mls @ 250 mls/hr IVPB Q24H [facility]; Protocol Last Admin: 03/30/18 10:50 Dose: 250 mls/hr Ceftriaxone Sodium 1 gm/ (Sodium Chloride) 100 mls @ 100 mls/hr IVPB DAILY [facility]; Protocol Last Admin: 03/30/18 09:44 Dose: 100 mls/hr Methylprednisolone (Solu-Medrol) 40 mg IVP Q8H [facility] Last Admin: 03/30/18 04:28 Dose: 40 mg Montelukast Sodium (Singulair) 10 mg PO HS [facility] Last Admin: 03/29/18 21:35 Dose: 10 mg Oseltamivir Phosphate (Tamiflu Cap) 75 mg PO BID [facility]; Protocol Stop: 03/31/18 21:12 Last Admin: 03/30/18 09:44 Dose: 75 mg Pantoprazole Sodium (Protonix Ec Tab) 40 mg PO DAILY [facility] Last Admin: 03/30/18 09:44 Dose: 40 mg - Labs Labs: 03/29/18 07:05 03/29/18 07:05
--- NOTE | 2018-03-30 15:32 | CP.PCM.PN ---
Subjective - Date & Time of Evaluation Date of Evaluation: 03/30/18 Time of Evaluation: 15:32 Objective - Vital Signs/Intake and Output Vital Signs (last 24 hours): Temp Pulse Resp BP Pulse Ox 98 F 97 H 200 H 133/75 98 03/30/18 08:00 03/30/18 08:00 03/30/18 08:00 03/30/18 08:00 03/30/18 08:00 Intake and Output: 03/30/18 03/30/18 06:59 18:59 Intake Total 700 Balance 700 - Medications Medications: Current Medications Acetaminophen (Tylenol 325mg Tab) 650 mg PO Q6 PRN PRN Reason: Headache Last Admin: 03/26/18 22:23 Dose: 650 mg Albuterol/Ipratropium (Duoneb 3 Mg/0.5 Mg (3 Ml) Ud) 3 ml INH RQ6 [facility] Last Admin: 03/30/18 13:40 Dose: 3 ml Albuterol/Ipratropium (Duoneb 3 Mg/0.5 Mg (3 Ml) Ud) 3 ml INH RQ4 PRN PRN Reason: Wheezing Docusate Sodium (Colace) 100 mg PO DAILY [facility] Last Admin: 03/30/18 09:44 Dose: 100 mg Enoxaparin Sodium (Lovenox) 40 mg SC DAILY [facility] Last Admin: 03/30/18 09:45 Dose: 40 mg Fluticasone/Vilanterol (Breo Ellipta 100-25 Mcg Inh) 1 puff INH RQ24 [facility] Last Admin: 03/30/18 07:30 Dose: 1 puff Guaifenesin (Robitussin) 100 mg PO Q4H PRN PRN Reason: Cough Last Admin: 03/29/18 10:26 Dose: 100 mg Azithromycin 500 mg/ Sodium (Chloride) 250 mls @ 250 mls/hr IVPB Q24H [facility]; Protocol Last Admin: 03/30/18 10:50 Dose: 250 mls/hr Ceftriaxone Sodium 1 gm/ (Sodium Chloride) 100 mls @ 100 mls/hr IVPB DAILY [facility]; Protocol Last Admin: 03/30/18 09:44 Dose: 100 mls/hr Methylprednisolone (Solu-Medrol) 40 mg IVP Q8H [facility] Last Admin: 03/30/18 04:28 Dose: 40 mg Montelukast Sodium (Singulair) 10 mg PO HS [facility] Last Admin: 03/29/18 21:35 Dose: 10 mg Oseltamivir Phosphate (Tamiflu Cap) 75 mg PO BID [facility]; Protocol Stop: 03/31/18 21:12 Last Admin: 03/30/18 09:44 Dose: 75 mg Pantoprazole Sodium (Protonix Ec Tab) 40 mg PO DAILY [facility] Last Admin: 03/30/18 09:44 Dose: 40 mg - Labs Labs: 03/29/18 07:05 03/29/18 07:05 Assessment and Plan - Assessment and Plan (Free Text) Assessment: FOLLOW UP WITH DR Niurka SIMON IN HIS OFFICE ------CALL FOR APPOINTMENT FOLLOW UP WITH DR JACOBS IN HER OFFICE ------CALL FOR APPOINTMENT CONTINUE HOME MEDICATION NEW PRESCRIPTION GIVEN ZPAK AND MEDROL DOSE DIRECTED BREO 1 PUFF DAILY SINGULAIR ONE TAB DAILY ROBUTOSIN Q4H PRN FOR COUGH TAMIFLU ONE TAB BID FOR 5 [address] ACTIVITY TOLERATED CALL DR Niurka SIMON OR GO TO THE EMERGENCY ROOM IF SYMPTOM RETURN OR WORSENING
--- NOTE | 2018-03-30 16:54 | CP.PCM.PN ---
Subjective - Date & Time of Evaluation Date of Evaluation: 03/30/18 Time of Evaluation: 16:54 - Subjective Subjective: Patient is seen and examined Symptomatically better Objective - Vital Signs/Intake and Output Vital Signs (last 24 hours): Temp Pulse Resp BP Pulse Ox 98 F 97 H 200 H 133/75 98 03/30/18 08:00 03/30/18 08:00 03/30/18 08:00 03/30/18 08:00 03/30/18 08:00 Intake and Output: 03/30/18 03/30/18 06:59 18:59 Intake Total 700 Balance 700 - Labs Labs: 03/29/18 07:05 03/29/18 07:05 - Head Exam Head Exam: NORMAL INSPECTION - Eye Exam Eye Exam: Normal appearance - ENT Exam ENT Exam: Mucous Membranes Moist - Respiratory Exam Respiratory Exam: Clear to Ausculation Bilateral - Cardiovascular Exam Cardiovascular Exam: REGULAR RHYTHM, +S1, +S2 - GI/Abdominal Exam GI & Abdominal Exam: Soft, Normal Bowel Sounds - Extremities Exam Extremities Exam: Normal Inspection - Neurological Exam Neurological Exam: Alert, Oriented x3 Assessment and Plan (1) Asthma Status: Acute (2) Influenza A Status: Acute - Assessment and Plan (Free Text) Plan: Oseltamivir 75 mg BID Breo Ellipta Bronchodilators
--- NOTE | 2018-03-31 00:24 | PN ---
DATE: 03/30/2018 SUBJECTIVE: The patient was seen today. She was feeling better. She said she still gets morning cough and she was wheezing less and plan was to get her home. PHYSICAL EXAMINATION: VITAL SIGNS: T-max was 98, pulse 73, blood pressure 116/67, and respirations are 20. HEENT: Head is atraumatic and normocephalic. NECK: Supple. LUNGS: Bilateral wheezes still present. HEART: S1, S2, regular. ABDOMEN: Soft, nontender. No guarding, no rigidity present. EXTREMITIES: Have no edema. LABORATORY DATA: Labs are noted. White count is 3.2, hemoglobin 8.9, hematocrit 27.5, this is from yesterday. No new labs were done today. She had a chest x-ray done today and the chest x-ray report was noted, which showed bilateral hilar prominence, linear atelectasis left mid lung zone, urine culture initial was negative. Repeat urine culture came out gram-negative rods and this is between 50,000 to 100,000. PLAN: So, she can follow with Dr. Cordell Xiao. If she is symptomatic, we will let him know. At this time, she did go home on Zithromax, Lipitor, Protonix, Colace, Breo Ellipta, Robitussin, Medrol-Dosepak, Singulair and we gave her 5 more days of Tamiflu as she did have influenza A positive and was really symptomatic. Her chest x-ray noted. Chest x-ray showed bilateral hilar prominence, linear atelectasis, left mid lung zone. So, she should be better and will be followed by Dr. Cordell Xiao in his office. Padmini Montana MD
== END 2018-03-30 16:27 | disposition home or self-care (01) | DRG 195 ==
LOC: C.ER 10:40 → C.9E 14:07 → C.6T 14:49 → C.9E 15:29 → C.5S 16:57 → OBSVTOIN 03-29 16:41
PROVIDERS: ADMIT Internal Medicine Nephrology; ATTEND Internal Medicine Nephrology
DX: J10.1 Influenza due to other identified influenza virus with other respiratory manifestations (principal); J45.909 Unspecified asthma, uncomplicated; K21.9 Gastro-esophageal reflux disease without esophagitis; E78.00 Pure hypercholesterolemia, unspecified; Z95.5 Presence of coronary angioplasty implant and graft

== ENCOUNTER 2018-05-06 16:17 | Inpatient (IN) | payer MEDICARE ==
[2018-05-06 16:17] VITALS: BMI 38.2
[2018-05-06 17:48] LABS: BASO % 0.7 % (0.0-2.0); EOS # 0.1 K/uL (0.0-0.7); EOS % 2.9 % (0.0-4.0); HEMOGLOBIN 9.2 g/dL (11.0-16.0); LYMPH # 0.7 K/uL (1.0-4.3); LYMPH % 14.1 % (20.0-40.0); MEAN CORPUSCULAR HEMOGLOBIN 25.6 pg (27.0-31.0); MEAN PLATELET VOLUME 8.4 fL (7.2-11.7); MONO # 0.5 K/uL (0.0-0.8); NEUT # 3.7 K/uL (1.8-7.0); NEUT % 73.3 % (50.0-75.0); RBC 3.57 Mil/uL (3.80-5.20)
[2018-05-06 17:50] LABS: MEAN CELL VOLUME 80.2 fL (81.0-99.0)
[2018-05-06 17:56] LABS: ALB/GLOB RATIO 1.3 (1.0-2.1); ALBUMIN 3.7 g/dL (3.5-5.0); AST/SGOT 26 U/L (14-36); BLOOD UREA NITROGEN 13 mg/dL (7-17); GFR NON-AFRICAN AMERICAN 60
--- NOTE | 2018-05-06 18:02 | C.PDOC ---
History Of Present Illness 82 year old female presents to ED with complaint of exertional dyspnea and chest pain for 1 day. Patient has a PMHx of CAD s/p stents. Patient denies nausea. Time Seen by Provider: 05/06/18 17:10 Chief Complaint (Nursing): Chest Pain History Per: Patient History/Exam Limitations: no limitations Onset/Duration Of Symptoms: Days (1) Current Symptoms Are (Timing): Still Present Quality: "Pain" Associated Symptoms: Dyspnea. denies: Nausea Exacerbating Factors: None Alleviating Factors: None Past Medical History Reviewed: Historical Data, Nursing Documentation, Vital Signs Vital Signs: Last Vital Signs Temp 98.4 F 05/06/18 16:31 Pulse 98 H 05/06/18 16:31 Resp 19 05/06/18 16:31 BP 134/74 05/06/18 16:31 Pulse Ox 100 05/06/18 16:31 - Medical History PMH: Arthritis, CAD (s/p stents), GERD, Hypercholesterolemia Denies: Chronic Kidney Disease Surgical History: Coronary Stent (x1 AUGUST 2017), Endoscopy - [facility] Procedures DILATION OF 1 COR ART WITH DRUG-ELUT INTRA, PERC APPROACH (08/28/17) ESOPHAGOGASTRODUODENOSCOPY [EGD] W/CLOSED BIOPSY (05/03/13) FLUOROSCOPY OF LEFT HEART USING LOW OSMOLAR CONTRAST (08/28/17) FLUOROSCOPY OF LEFT HEART USING OTHER CONTRAST (04/08/17) FLUOROSCOPY OF MULT COR ART USING L OSM CONTRAST (08/28/17) FLUOROSCOPY OF MULTIPLE CORONARY ARTERIES USING OTH CONTRAST (04/08/17) FLUOROSCOPY OF SINGLE CORONARY ARTERY USING OTHER CONTRAST (04/08/17) MEASURE OF CARDIAC SAMPL & PRESSURE, L HEART, PERC APPROACH (08/28/17) Family History: States: Unknown Family Hx - Social History Hx Tobacco Use: No Hx Alcohol Use: Yes (quit 50 years ago) Hx Substance Use: No - Immunization History Hx Tetanus Toxoid Vaccination: Yes Hx Influenza Vaccination: No Hx Pneumococcal Vaccination: Yes Review Of Systems Except As Marked, All Systems Reviewed And Found Negative. Respiratory: Positive for: Shortness of Breath Gastrointestinal: Negative for: Nausea Physical Exam - Physical Exam Appears: Well, Non-toxic, No Acute Distress Skin: Normal Color, Warm, Dry Head: Atraumatic, Normacephalic Eye(s): bilateral: Normal Inspection, PERRL, EOMI Nose: Normal Oral Mucosa: Moist Chest: Symmetrical Cardiovascular: Rhythm Regular, No Murmur Respiratory: No Rales, No Rhonchi, No Wheezing, Other (distant breathe sounds bilaterally) Gastrointestinal/Abdominal: Normal Exam, Soft, No Tenderness Extremity: Other (+1 pitting edema to the bilateral lower extremities) Extremity: Bilateral: Atraumatic, Normal Color And Temperature, Normal ROM Neurological/Psych: Oriented x3, Normal Speech, Normal Cognition ED Course And Treatment - Laboratory Results Result Diagrams: 05/06/18 17:27 05/06/18 17:27 Lab Results: Total Bilirubin 0.4 mg/dL (0.2-1.3) 05/06/18 17:27 AST 26 U/L (14-36) 05/06/18 17:27 Alkaline Phosphatase 83 U/L (38-126) 05/06/18 17:27 Total Protein 6.6 g/dL (6.3-8.3) 05/06/18 17:27 Albumin 3.7 g/dL (3.5-5.0) 05/06/18 17:27 Globulin 2.9 gm/dL (2.2-3.9) 05/06/18 17:27 Albumin/Globulin Ratio 1.3 (1.0-2.1) 05/06/18 17:27 O2 Sat by Pulse Oximetry: 100 (in RA) - Other Rad CXR X-Ray: Interpreted by Me, Viewed By Me Interpretation: IMPRESSION: No focal consolidation. Bilateral hilar prominence. Medical Decision Making Medical Decision Making: Assessment:CHF Plan: EKG and CXR ordered for patient Labs ordered with troponin and CMP Disposition Discussed With : Tamiko Xiao Doctor Will See Patient In The: Hospital Counseled Patient/Family Regarding: Studies Performed, Diagnosis - Disposition Disposition: HOSPITALIZED Disposition Time: 18:19 Condition: FAIR - Clinical Impression Clinical Impression: Shortness of breath - Scribe Statement The provider has reviewed the documentation as recorded by the Scribe (Shari Toney) All medical record entries made by the Scribe were at my direction and personally dictated by me. I have reviewed the chart and agree that the record accurately reflects my personal performance of the history, physical exam, medical decision making, and the department course for this patient. I have also personally directed, reviewed, and agree with the discharge instructions and disposition.
[2018-05-06 18:06] LABS: B-TYPE NATRIURETIC PEPTIDE 333 pg/mL (0-900)
[2018-05-06 18:10] LABS: INR 1.1; PROTHROMBIN TIME 11.5 SECONDS (9.7-12.2)
[2018-05-06 18:16] LABS: ALT/SGPT < 6 U/L (9-52)
--- NOTE | 2018-05-06 18:16 | RAD ---
HISTORY: SOB COMPARISON: Chest x-ray performed 03/30/18 TECHNIQUE: Chest, one view. FINDINGS: Examination limited by habitus. LUNGS: No focal consolidation. Bilateral hilar prominence. Please note that chest x-ray has limited sensitivity for the detection of pulmonary masses. PLEURA: No significant pleural effusion identified. No definite pneumothorax . CARDIOVASCULAR: Heart size appears top normal. Ectatic aorta and atherosclerotic calcifications. OSSEOUS STRUCTURES: Acromioclavicular arthropathy. Degenerative changes. VISUALIZED UPPER ABDOMEN: Unremarkable. OTHER FINDINGS: None. IMPRESSION: No focal consolidation. Bilateral hilar prominence.
[2018-05-06] MEDS ORDERED: guaiFENesin 100 mg/5 ml Syrup UD PO PRN (18:39)
--- NOTE | 2018-05-06 18:43 | CP.PCM.HP ---
Past Patient History - Infectious Disease Hx of Infectious Diseases: None - Past Medical History & Family History Past Medical History?: Yes - Past Social History Smoking Status: Former Smoker - CARDIAC Hx Hypercholesterolemia: Yes - PULMONARY Hx Respiratory Disorders: No - NEUROLOGICAL Hx Neurological Disorder: No - HEENT Hx HEENT Problems: Yes Hx Cataracts: Yes (BOTH EYES) - RENAL Hx Chronic Kidney Disease: No - ENDOCRINE/METABOLIC Hx Endocrine Disorders: No - HEMATOLOGICAL/ONCOLOGICAL Hx Blood Disorders: No Hx Blood Transfusions: No - INTEGUMENTARY Hx Dermatological Problems: No - MUSCULOSKELETAL/RHEUMATOLOGICAL Hx Arthritis: Yes - GASTROINTESTINAL Hx Gastrointestinal Disorders: Yes Hx Gastroesophageal Reflux: Yes Hx Ulcer: Yes - GENITOURINARY/GYNECOLOGICAL Hx Genitourinary Disorders: No - PSYCHIATRIC Hx Substance Use: No - SURGICAL HISTORY Hx Coronary Stent: Yes (x1 AUGUST 2017) - ANESTHESIA Hx Anesthesia: Yes Hx Anesthesia Reactions: No Hx Malignant Hyperthermia: No Meds Home Medications: Home Medication List Medication Instructions Recorded Confirmed Type Aspirin [Aspirin Chewable] 81 mg PO DAILY 30 Days chew 05/12/18 Rx Clopidogrel [Plavix] 75 mg PO DAILY 30 Days tab 05/12/18 Rx Metoprolol Tartrate [Lopressor] 25 mg PO BIDBS 30 Days tab 05/12/18 Rx Allergies/Adverse Reactions: Allergies Allergy/AdvReac Type Severity Reaction Status Date / Time No Known Allergies Allergy Verified 03/26/18 10:51 Physical Exam - Constitutional Appears: Well - Head Exam Head Exam: ATRAUMATIC, NORMAL INSPECTION, NORMOCEPHALIC - Eye Exam Eye Exam: EOMI, Normal appearance, PERRL Pupil Exam: NORMAL ACCOMODATION, PERRL - ENT Exam ENT Exam: Mucous Membranes Moist, Normal Exam - Neck Exam Neck exam: Positive for: Normal Inspection - Respiratory Exam Respiratory Exam: Decreased Breath Sounds - Cardiovascular Exam Cardiovascular Exam: REGULAR RHYTHM, +S1, +S2 - GI/Abdominal Exam GI & Abdominal Exam: Diminished Bowel Sounds, Soft - Rectal Exam Rectal Exam: Deferred Results - Vital Signs Recent Vital Signs: Last Vital Signs Temp 98.4 F 05/06/18 16:31 Pulse 98 H 05/06/18 16:31 Resp 19 05/06/18 16:31 BP 134/74 05/06/18 16:31 Pulse Ox 100 05/06/18 18:20 - Labs Result Diagrams: 05/09/18 07:50 05/09/18 07:50 Labs: Laboratory Results - last 24 hr 05/06/18 05/06/18 05/06/18 17:27 17:27 17:27 WBC 5.0 D RBC 3.57 L Hgb 9.2 L Hct 28.6 L MCV 80.2 L D MCH 25.6 L MCHC 32.0 L RDW 20.0 H Plt Count 222 MPV 8.4 Neut % (Auto) 73.3 Lymph % (Auto) 14.1 L [place] % (Auto) 9.0 Eos % (Auto) 2.9 Baso % (Auto) 0.7 Neut # (Auto) 3.7 Lymph # (Auto) 0.7 L [place] # (Auto) 0.5 Eos # (Auto) 0.1 Baso # (Auto) 0.0 PT 11.5 INR 1.1 APTT 33 Sodium 137 Potassium 4.5 Chloride 105 Carbon Dioxide 28 Anion Gap 8 L BUN 13 Creatinine 0.9 Est GFR ( Amer) > 60 Est GFR (Non-Af Amer) 60 Random Glucose 86 D Calcium 9.0 Total Bilirubin 0.4 AST 26 ALT < 6 L D Alkaline Phosphatase 83 Troponin I 0.0230 NT-Pro-B Natriuret Pep 333 Total Protein 6.6 Albumin 3.7 Globulin 2.9 Albumin/Globulin Ratio 1.3
[2018-05-06 19:30] LABS: CK-MB 0.25 ng/mL (0.0-3.38)
[2018-05-06] MEDS: Albuterol-Ipratrop 3 mg / 0.5 (3 ml) UD INH SCH (21:00)
[2018-05-07] MEDS: Albuterol-Ipratrop 3 mg / 0.5 (3 ml) UD INH SCH ×5 (00:14→16:13)
[2018-05-07] MEDS: Fluticasone-Vilanterol 100/25mcg Diskus INH SCH (07:30)
[2018-05-07 07:31] LABS: BASO # 0.1 K/uL (0.0-0.2); BASO % 2.4 % (0.0-2.0); EOS # 0.1 K/uL (0.0-0.7); EOS % 3.3 % (0.0-4.0); HEMOGLOBIN 8.5 g/dL (11.0-16.0); LYMPH % 23.7 % (20.0-40.0); MEAN CELL VOLUME 79.1 fL (81.0-99.0); MEAN CORPUSCULAR HEMOGLOBIN 26.2 pg (27.0-31.0); MEAN CORPUSCULAR HGB CONC 33.2 g/dL (33.0-37.0); MEAN PLATELET VOLUME 8.7 fL (7.2-11.7); MONO # 0.5 K/uL (0.0-0.8); MONO % 12.3 % (0.0-10.0); NEUT # 2.3 K/uL (1.8-7.0); NEUT % 58.3 % (50.0-75.0); RBC 3.25 Mil/uL (3.80-5.20)
[2018-05-07 07:53] LABS: BLOOD UREA NITROGEN 9 mg/dL (7-17); CALCIUM 8.9 mg/dl (8.6-10.4); GFR NON-AFRICAN AMERICAN > 60
[2018-05-07 07:55] LABS: B-TYPE NATRIURETIC PEPTIDE 427 pg/mL (0-900)
--- NOTE | 2018-05-07 08:19 | CP.PCM.CON ---
History of Present Illness - History of Present Illness History of Present Illness: Trip Rob, PGY-1, Cardiology Consult Note for Dr. May 82 year old female with past medical history of hypertension, hypercholes terolemia, and GERD presents with fatigue, shortness of breath since last cardiac catheterization in 08/2017. Patient reports never having these symptoms prior to the catheterization. Patient reports that she has fatigue, shortness of breath, and heart palpitations with exertion. She is only able to walk 1/2 a block prior to symptoms starting. Symptoms resolve with rest. Patient saw her PCP, Dr. Pink, two weeks ago who told her to go to the ER if she had those symptoms again and as a result, patient presented to the emergency department. Patient denies chest pain, nausea, left arm pain, jaw pain. PMH: as stated above PSH: knee replacement in 2004 and hysterectomy in 2000 FMHx: denies SHx: smoked 40 years ago. Smoked 1 pack per week for 2 years, denies alcohol and recreational drug use Allergies: NKDA PCP: Dr. Pink Cardio: Dr. Perry Last cath in 08/2017 showing RCA stenosis and one 3.0x38 melisa stent placed by Dr. May Review of Systems - Review of Systems Review of Systems: except as mentioned in HPI Past Patient History - Infectious Disease Hx of Infectious Diseases: None - Past Medical History & Family History Past Medical History?: Yes - Past Social History Smoking Status: Former Smoker - CARDIAC Hx Hypercholesterolemia: Yes - PULMONARY Hx Respiratory Disorders: No - NEUROLOGICAL Hx Neurological Disorder: No - HEENT Hx HEENT Problems: Yes Hx Cataracts: Yes (BOTH EYES) - RENAL Hx Chronic Kidney Disease: No - ENDOCRINE/METABOLIC Hx Endocrine Disorders: No - HEMATOLOGICAL/ONCOLOGICAL Hx Blood Disorders: No Hx Blood Transfusions: No - INTEGUMENTARY Hx Dermatological Problems: No - MUSCULOSKELETAL/RHEUMATOLOGICAL Hx Arthritis: Yes - GASTROINTESTINAL Hx Gastrointestinal Disorders: Yes Hx Gastroesophageal Reflux: Yes Hx Ulcer: Yes - GENITOURINARY/GYNECOLOGICAL Hx Genitourinary Disorders: No - PSYCHIATRIC Hx Substance Use: No - SURGICAL HISTORY Hx Coronary Stent: Yes (x1 AUGUST 2017) - ANESTHESIA Hx Anesthesia: Yes Hx Anesthesia Reactions: No Hx Malignant Hyperthermia: No Meds Allergies/Adverse Reactions: Allergies Allergy/AdvReac Type Severity Reaction Status Date / Time No Known Allergies Allergy Verified 03/26/18 10:51 - Medications Medications: Current Medications Albuterol/Ipratropium (Duoneb 3 Mg/0.5 Mg (3 Ml) Ud) 3 ml INH RQ4 [facility] Last Admin: 05/07/18 03:31 Dose: Not Given Aspirin (Aspirin Chewable) 81 mg PO DAILY [facility] Clopidogrel Bisulfate (Plavix) 75 mg PO DAILY [facility] Docusate Sodium (Colace) 100 mg PO DAILY [facility] Enoxaparin Sodium (Lovenox) 40 mg SC DAILY [facility] Famotidine (Pepcid) 20 mg PO DAILY [facility] Fluticasone/Vilanterol (Breo Ellipta 100-25 Mcg Inh) 1 puff INH RQ24 [facility] Guaifenesin (Robitussin) 100 mg PO Q4H PRN PRN Reason: Cough Ceftriaxone Sodium 1 gm/ (Sodium Chloride) 100 mls @ 100 mls/hr IVPB DAILY [facility]; Protocol Azithromycin 500 mg/ Sodium (Chloride) 250 mls @ 250 mls/hr IVPB DAILY [facility]; Protocol Montelukast Sodium (Singulair) 10 mg PO [facility] Last Admin: 05/06/18 21:31 Dose: 10 mg Rosuvastatin Calcium (Crestor) 10 mg PO [facility] Last Admin: 05/06/18 21:30 Dose: 10 mg Physical Exam - Constitutional Appears: Well, Non-toxic, No Acute Distress - Head Exam Head Exam: ATRAUMATIC, NORMAL INSPECTION, NORMOCEPHALIC - Eye Exam Eye Exam: EOMI, PERRL - ENT Exam ENT Exam: Mucous Membranes Moist - Respiratory Exam Respiratory Exam: Clear to Auscultation Bilateral, NORMAL BREATHING PATTERN - Cardiovascular Exam Cardiovascular Exam: REGULAR RHYTHM, RRR, +S1, +S2 - GI/Abdominal Exam GI & Abdominal Exam: Normal Bowel Sounds, Soft. absent: Tenderness - Extremities Exam Extremities exam: Positive for: full ROM, normal inspection, pedal edema (+1) - Neurological Exam Neurological exam: Alert, CN II-XII Intact, Oriented x3 - Skin Skin Exam: Dry, Intact, Normal Color Results - Vital Signs Recent Vital Signs: Last Vital Signs Temp 98 F 05/06/18 23:15 Pulse 84 05/06/18 23:35 Resp 20 05/06/18 23:15 BP 99/58 L 05/06/18 23:15 Pulse Ox 99 05/07/18 04:00 - Labs Result Diagrams: 05/07/18 07:14 05/07/18 07:14 Labs: Laboratory Results - last 24 hr 05/06/18 05/06/18 05/06/18 17:27 17:27 17:27 WBC 5.0 D RBC 3.57 L Hgb 9.2 L Hct 28.6 L MCV 80.2 L D MCH 25.6 L MCHC 32.0 L RDW 20.0 H Plt Count 222 MPV 8.4 Neut % (Auto) 73.3 Lymph % (Auto) 14.1 L [place] % (Auto) 9.0 Eos % (Auto) 2.9 Baso % (Auto) 0.7 Neut # (Auto) 3.7 Lymph # (Auto) 0.7 L [place] # (Auto) 0.5 Eos # (Auto) 0.1 Baso # (Auto) 0.0 PT 11.5 INR 1.1 APTT 33 Sodium 137 Potassium 4.5 Chloride 105 Carbon Dioxide 28 Anion Gap 8 L BUN 13 Creatinine 0.9 Est GFR ( Amer) > 60 Est GFR (Non-Af Amer) 60 Random Glucose 86 D Calcium 9.0 Total Bilirubin 0.4 AST 26 ALT < 6 L D Alkaline Phosphatase 83 Total Creatine Kinase CK-MB (Mass) Troponin I 0.0230 NT-Pro-B Natriuret Pep 333 Total Protein 6.6 Albumin 3.7 Globulin 2.9 Albumin/Globulin Ratio 1.3 05/06/18 05/07/18 05/07/18 19:06 07:14 07:14 WBC 4.0 L RBC 3.25 L Hgb 8.5 L Hct 25.7 L MCV 79.1 L MCH 26.2 L MCHC 33.2 RDW 20.0 H Plt Count 194 MPV 8.7 Neut % (Auto) 58.3 Lymph % (Auto) 23.7 [place] % (Auto) 12.3 H Eos % (Auto) 3.3 Baso % (Auto) 2.4 H Neut # (Auto) 2.3 Lymph # (Auto) 1.0 [place] # (Auto) 0.5 Eos # (Auto) 0.1 Baso # (Auto) 0.1 PT INR APTT Sodium 138 Potassium 4.1 Chloride 108 H Carbon Dioxide 28 Anion Gap 5 L BUN 9 Creatinine 0.8 Est GFR ( Amer) > 60 Est GFR (Non-Af Amer) > 60 Random Glucose 80 Calcium 8.9 Total Bilirubin AST ALT Alkaline Phosphatase Total Creatine Kinase 34 CK-MB (Mass) 0.25 Troponin I NT-Pro-B Natriuret Pep 427 Total Protein Albumin Globulin Albumin/Globulin Ratio Assessment & Plan (1) Shortness of breath Assessment and Plan: Last echocardiogram in 04/2017 shows preserved EF with grade I pseudonormal relaxation BNP: 427 Will obtain echocardiogram for further evaluation Status: Acute (2) Hypercholesteremia Assessment and Plan: Continue with rosuvastatin Status: Acute (3) GERD (gastroesophageal reflux disease) Assessment and Plan: Continue with pepcid Status: Acute (4) CAD (coronary artery disease) Assessment and Plan: Status post stent in 08/2017 EKG: sinus rhythm with PVCs Tropx1:0.0230 Follow up tropx3 Will consider stress test to evaluate for ischemia Continue with aspirin, plavix, rosuvastatin. Will add lisinopril and lopressor Status: Acute - Date & Time Date: 05/07/18 Time: 08:20
[2018-05-07] MEDS: Enoxaparin 40 mg Syringe SC SCH (09:06)
[2018-05-07] MEDS: Azithromycin 500 MG in Sodium Chloride 0.9% 250 ML IVPB SCH (10:25)
--- NOTE | 2018-05-07 11:07 | CARD ---
APPROVED REPORT Date of service: 05/06/2018 EKG Measurement Heart [id number] <Conclusion> Sinus rhythm with frequent premature ventricular complexes Otherwise normal ECG
--- NOTE | 2018-05-07 19:46 | CP.PCM.PN ---
Subjective - Date & Time of Evaluation Date of Evaluation: 05/07/18 - Subjective Subjective: no nausea, no vomiting, no diarrhea, no dizziness, no fever, no SOB Objective - Vital Signs/Intake and Output Vital Signs (last 24 hours): Temp Pulse Resp BP Pulse Ox 97.7 F 86 20 116/69 97 05/07/18 15:00 05/07/18 16:00 05/07/18 15:00 05/07/18 16:15 05/07/18 15:00 Intake and Output: 05/07/18 05/08/18 18:59 06:59 Intake Total 500 Balance 500 - Medications Medications: Current Medications Albuterol/Ipratropium (Duoneb 3 Mg/0.5 Mg (3 Ml) Ud) 3 ml INH RQ4 [facility] Last Admin: 05/07/18 16:13 Dose: Not Given Aspirin (Aspirin Chewable) 81 mg PO DAILY [facility] Last Admin: 05/07/18 09:08 Dose: 81 mg Clopidogrel Bisulfate (Plavix) 75 mg PO DAILY [facility] Last Admin: 05/07/18 09:06 Dose: 75 mg Docusate Sodium (Colace) 100 mg PO DAILY [facility] Last Admin: 05/07/18 09:07 Dose: 100 mg Enoxaparin Sodium (Lovenox) 40 mg SC DAILY [facility] Last Admin: 05/07/18 09:06 Dose: 40 mg Famotidine (Pepcid) 20 mg PO DAILY [facility] Last Admin: 05/07/18 09:07 Dose: 20 mg Fluticasone/Vilanterol (Breo Ellipta 100-25 Mcg Inh) 1 puff INH RQ24 [facility] Last Admin: 05/07/18 07:30 Dose: Not Given Guaifenesin (Robitussin) 100 mg PO Q4H PRN PRN Reason: Cough Ceftriaxone Sodium 1 gm/ (Sodium Chloride) 100 mls @ 100 mls/hr IVPB DAILY [facility]; Protocol Last Admin: 05/07/18 10:24 Dose: 100 mls/hr Azithromycin 500 mg/ Sodium (Chloride) 250 mls @ 250 mls/hr IVPB DAILY [facility]; Protocol Last Admin: 05/07/18 10:25 Dose: 250 mls/hr Lisinopril (Zestril) 2.5 mg PO DAILY [facility] Last Admin: 05/07/18 09:07 Dose: 2.5 mg Metoprolol Tartrate (Lopressor) 25 mg PO BIDBS [facility] Last Admin: 05/07/18 16:15 Dose: 25 mg Montelukast Sodium (Singulair) 10 mg PO HS [facility] Last Admin: 05/06/18 21:31 Dose: 10 mg Rosuvastatin Calcium (Crestor) 10 mg PO HS [facility] Last Admin: 05/06/18 21:30 Dose: 10 mg Temazepam (Restoril) 15 mg PO HS PRN PRN Reason: Insomnia - Labs Labs: 05/07/18 07:14 05/07/18 07:14 PT 11.5 SECONDS (9.7-12.2) 05/06/18 17:27 INR 1.1 05/06/18 17:27 APTT 33 SECONDS (21-34) 05/06/18 17:27 - Constitutional Appears: Well - Head Exam Head Exam: ATRAUMATIC, NORMAL INSPECTION, NORMOCEPHALIC - Eye Exam Eye Exam: EOMI, Normal appearance, PERRL Pupil Exam: NORMAL ACCOMODATION, PERRL - ENT Exam ENT Exam: Mucous Membranes Moist, Normal Exam - Neck Exam Neck Exam: Full ROM, Normal Inspection. absent: Lymphadenopathy - Respiratory Exam Respiratory Exam: Decreased Breath Sounds - Cardiovascular Exam Cardiovascular Exam: REGULAR RHYTHM, +S1, +S2 - GI/Abdominal Exam GI & Abdominal Exam: Soft, Diminished Bowel Sounds - Rectal Exam Rectal Exam: Deferred Assessment and Plan - Assessment and Plan (Free Text) Plan: patient seen and examined today xray reviewed labs reviewed vitals reviewed medications reviewed aspirin chewable tab azithromycin 500mg myriam ellipta 100-25 mcg inh ceftriaxone sodium 1gm colace crestor duoneb 3mg/0.5mg (3ml) ud lopressor lovenox pepcid plavix resotril robitussin singulair zestril
[2018-05-08] MEDS: Albuterol-Ipratrop 3 mg / 0.5 (3 ml) UD INH SCH ×7 (00:15→23:55)
[2018-05-08 06:52] LABS: EOS # 0.2 K/uL (0.0-0.7); EOS % 4.2 % (0.0-4.0); HEMOGLOBIN 8.5 g/dL (11.0-16.0); LYMPH # 0.5 K/uL (1.0-4.3); LYMPH % 11.4 % (20.0-40.0); MEAN CELL VOLUME 79.6 fL (81.0-99.0); MEAN CORPUSCULAR HEMOGLOBIN 26.1 pg (27.0-31.0); MEAN CORPUSCULAR HGB CONC 32.9 g/dL (33.0-37.0); MEAN PLATELET VOLUME 9.2 fL (7.2-11.7); MONO # 0.5 K/uL (0.0-0.8); MONO % 12.6 % (0.0-10.0); NEUT # 2.9 K/uL (1.8-7.0); NEUT % 70.8 % (50.0-75.0); NRBC % 0.1 % (0.0-2.0); RBC 3.24 Mil/uL (3.80-5.20); RED CELL DISTRIBUTION WIDTH 19.8 % (11.5-14.5); WHITE BLOOD COUNT 4.2 K/uL (4.8-10.8)
[2018-05-08 07:02] LABS: ALB/GLOB RATIO 1.2 (1.0-2.1); ALBUMIN 3.1 g/dL (3.5-5.0); ALT/SGPT 8 U/L (9-52); AST/SGOT 21 U/L (14-36); BLOOD UREA NITROGEN 11 mg/dL (7-17); CALCIUM 8.7 mg/dl (8.6-10.4); GFR NON-AFRICAN AMERICAN 53
[2018-05-08] MEDS: Fluticasone-Vilanterol 100/25mcg Diskus INH SCH (09:33)
[2018-05-08] MEDS: Enoxaparin 40 mg Syringe SC SCH (09:55)
[2018-05-08] MEDS: Azithromycin 500 MG in Sodium Chloride 0.9% 250 ML IVPB SCH (09:59)
--- NOTE | 2018-05-08 10:28 | CP.PCM.PN ---
Subjective - Date & Time of Evaluation Date of Evaluation: 05/08/18 - Subjective Subjective: patient seen and examined today no nausea, no vomiting, no diarrhea, no shortness of breath, no fever Objective - Vital Signs/Intake and Output Vital Signs (last 24 hours): Temp Pulse Resp BP Pulse Ox 97.9 F 91 H 18 91/57 L 96 05/08/18 07:00 05/08/18 09:53 05/08/18 07:00 05/08/18 09:53 05/08/18 07:00 - Medications Medications: Current Medications Albuterol/Ipratropium (Duoneb 3 Mg/0.5 Mg (3 Ml) Ud) 3 ml INH RQ4 [facility] Last Admin: 05/08/18 09:33 Dose: Not Given Aspirin (Aspirin Chewable) 81 mg PO DAILY [facility] Last Admin: 05/08/18 09:55 Dose: 81 mg Clopidogrel Bisulfate (Plavix) 75 mg PO DAILY [facility] Last Admin: 05/08/18 09:54 Dose: 75 mg Docusate Sodium (Colace) 100 mg PO DAILY [facility] Last Admin: 05/08/18 09:54 Dose: 100 mg Enoxaparin Sodium (Lovenox) 40 mg SC DAILY [facility] Last Admin: 05/08/18 09:55 Dose: 40 mg Famotidine (Pepcid) 20 mg PO DAILY [facility] Last Admin: 05/08/18 09:54 Dose: 20 mg Fluticasone/Vilanterol (Breo Ellipta 100-25 Mcg Inh) 1 puff INH RQ24 [facility] Last Admin: 05/08/18 09:33 Dose: Not Given Guaifenesin (Robitussin) 100 mg PO Q4H PRN PRN Reason: Cough Ceftriaxone Sodium 1 gm/ (Sodium Chloride) 100 mls @ 100 mls/hr IVPB DAILY [facility]; Protocol Last Admin: 05/08/18 09:00 Dose: 100 mls/hr Azithromycin 500 mg/ Sodium (Chloride) 250 mls @ 250 mls/hr IVPB DAILY [facility]; Protocol Last Admin: 05/08/18 09:59 Dose: 250 mls/hr Lisinopril (Zestril) 2.5 mg PO DAILY [facility] Last Admin: 05/08/18 09:55 Dose: Not Given Metoprolol Tartrate (Lopressor) 25 mg PO BIDBS [facility] Last Admin: 05/08/18 06:46 Dose: Not Given Montelukast Sodium (Singulair) 10 mg PO HS [facility] Last Admin: 05/07/18 21:30 Dose: 10 mg Rosuvastatin Calcium (Crestor) 10 mg PO HS [facility] Last Admin: 05/07/18 21:30 Dose: 10 mg Temazepam (Restoril) 15 mg PO HS PRN PRN Reason: Insomnia Last Admin: 05/07/18 21:30 Dose: 15 mg - Labs Labs: 05/08/18 06:42 05/08/18 06:42 PT 11.5 SECONDS (9.7-12.2) 05/06/18 17:27 INR 1.1 05/06/18 17:27 APTT 33 SECONDS (21-34) 05/06/18 17:27 - Constitutional Appears: Well - Head Exam Head Exam: ATRAUMATIC, NORMAL INSPECTION, NORMOCEPHALIC - Eye Exam Eye Exam: EOMI, Normal appearance, PERRL Pupil Exam: NORMAL ACCOMODATION, PERRL - ENT Exam ENT Exam: Mucous Membranes Moist, Normal Exam - Neck Exam Neck Exam: Full ROM, Normal Inspection. absent: Lymphadenopathy - Respiratory Exam Respiratory Exam: Decreased Breath Sounds - Cardiovascular Exam Cardiovascular Exam: REGULAR RHYTHM, +S1, +S2 - GI/Abdominal Exam GI & Abdominal Exam: Soft, Diminished Bowel Sounds - Rectal Exam Rectal Exam: Deferred Assessment and Plan - Assessment and Plan (Free Text) Plan: patient evaluated today medications, labs and vitals reviewed aspirin chewable breo ellipta 100-25mcg inh ceftriaxone sodium 1gm colace crestor duoneb 3mg/0.5mg 3ml ud lopressor lovenox pepcid plavix restoril robitussin singulair zestril
--- NOTE | 2018-05-08 12:53 | CARD ---
APPROVED REPORT Date of service: 05/07/2018 EXAM: Two-dimensional and M-mode echocardiogram with Doppler and color Doppler. Other Information Quality : GoodRhythm : INDICATION evaluate cardiac function 2D DIMENSIONS IVSd1.1 (0.7-1.1cm)LVDd4.0 (3.9-5.9cm) PWd0.8 (0.7-1.1cm)LA Curvbh49 (18-58mL) LVDs2.6 (2.5-4.0cm)FS (%) 35.1 % LVEF (%)65.1 (>50%)LVEF (Baugh's)66.13 % M-Mode DIMENSIONS Left Atrium (MM)3.07 (2.5-4.0cm)IVSd0.74 (0.7-1.1cm) Aortic Root3.61 (2.2-3.7cm)LVDd4.84 (4.0-5.6cm) PWd0.64 (0.7-1.1cm)FS (%) 32 % LVDs3.29 (2.0-3.8cm) Mitral Valve MV E Ukbntuff00.5cm/sMV A Vxfbbnxc63.9cm/sE/A ratio0.7 TDI Lateral E' Peak V10.22cm/sMedial E' Peak V7.58cm/sE/Lateral E'5.9 E/Medial E'8.0 Tricuspid Valve TR Peak Glbaccco939zw/sTR Peak Gr.82zxFsPRTS28hzGh LEFT VENTRICLE The left ventricle is normal size. There is normal left ventricular wall thickness. The left ventricular function is normal. The left ventricular ejection fraction is within the normal range. No regional wall motion abnormalities noted. Transmitral Doppler flow pattern is Grade I-abnormal relaxation pattern. No left ventricle thrombus noted on this study. There is no ventricular septal defect visualized. There is no left ventricular aneurysm. There is no mass noted in the left ventricle. RIGHT VENTRICLE The right ventricle is normal size. There is normal right ventricular wall thickness. The right ventricular systolic function is normal. ATRIA The left atrium size is normal. The right atrium size is normal. The interatrial septum is intact with no evidence for an atrial septal defect. AORTIC VALVE The aortic valve is normal in structure and function. No aortic regurgitation is present. There is no aortic valvular stenosis. There is no aortic valvular vegetation. MITRAL VALVE The mitral valve is normal in structure and function. There is no evidence of mitral valve prolapse. There is no mitral valve stenosis. Mitral regurgitation is mild. TRICUSPID VALVE The tricuspid valve is normal in structure and function. There is mild tricuspid regurgitation. Right ventricular systolic pressure is estimated at 40-50 mmHg. There is no tricuspid valve prolapse or vegetation. There is no tricuspid valve stenosis. PULMONIC VALVE The pulmonary valve is normal in structure and function. There is no pulmonic valvular regurgitation. There is no pulmonic valvular stenosis. GREAT VESSELS The aortic root is normal in size. The ascending aorta is normal in size. The pulmonary artery is normal. The IVC is normal in size and collapses >50% with inspiration. PERICARDIAL EFFUSION The pericardium appears normal. There is no pleural effusion. <Conclusion> The left ventricular function is normal. The left ventricular ejection fraction is within the normal range. No regional wall motion abnormalities noted. Mitral regurgitation is mild.
--- NOTE | 2018-05-08 15:23 | CP.PCM.PN ---
Subjective - Date & Time of Evaluation Date of Evaluation: 05/08/18 Time of Evaluation: 15:22 - Subjective Subjective: stress test thursday Objective - Vital Signs/Intake and Output Vital Signs (last 24 hours): Temp Pulse Resp BP Pulse Ox 97.9 F 78 18 91/57 L 96 05/08/18 07:00 05/08/18 11:53 05/08/18 07:00 05/08/18 09:53 05/08/18 07:00 - Medications Medications: Current Medications Albuterol/Ipratropium (Duoneb 3 Mg/0.5 Mg (3 Ml) Ud) 3 ml INH RQ4 [facility] Last Admin: 05/08/18 11:26 Dose: Not Given Aspirin (Aspirin Chewable) 81 mg PO DAILY [facility] Last Admin: 05/08/18 09:55 Dose: 81 mg Clopidogrel Bisulfate (Plavix) 75 mg PO DAILY [facility] Last Admin: 05/08/18 09:54 Dose: 75 mg Docusate Sodium (Colace) 100 mg PO DAILY [facility] Last Admin: 05/08/18 09:54 Dose: 100 mg Enoxaparin Sodium (Lovenox) 40 mg SC DAILY [facility] Last Admin: 05/08/18 09:55 Dose: 40 mg Famotidine (Pepcid) 20 mg PO DAILY [facility] Last Admin: 05/08/18 09:54 Dose: 20 mg Fluticasone/Vilanterol (Breo Ellipta 100-25 Mcg Inh) 1 puff INH RQ24 [facility] Last Admin: 05/08/18 09:33 Dose: Not Given Guaifenesin (Robitussin) 100 mg PO Q4H PRN PRN Reason: Cough Ceftriaxone Sodium 1 gm/ (Sodium Chloride) 100 mls @ 100 mls/hr IVPB DAILY [facility]; Protocol Last Admin: 05/08/18 09:00 Dose: 100 mls/hr Azithromycin 500 mg/ Sodium (Chloride) 250 mls @ 250 mls/hr IVPB DAILY [facility]; Protocol Last Admin: 05/08/18 09:59 Dose: 250 mls/hr Lisinopril (Zestril) 2.5 mg PO DAILY [facility] Last Admin: 05/08/18 09:55 Dose: Not Given Metoprolol Tartrate (Lopressor) 25 mg PO BIDBS [facility] Last Admin: 05/08/18 06:46 Dose: Not Given Montelukast Sodium (Singulair) 10 mg PO HS [facility] Last Admin: 05/07/18 21:30 Dose: 10 mg Rosuvastatin Calcium (Crestor) 10 mg PO HS [facility] Last Admin: 05/07/18 21:30 Dose: 10 mg Temazepam (Restoril) 15 mg PO HS PRN PRN Reason: Insomnia Last Admin: 05/07/18 21:30 Dose: 15 mg - Labs Labs: 05/08/18 06:42 05/08/18 06:42 PT 11.5 SECONDS (9.7-12.2) 05/06/18 17:27 INR 1.1 05/06/18 17:27 APTT 33 SECONDS (21-34) 05/06/18 17:27 - Constitutional Appears: Well - Head Exam Head Exam: ATRAUMATIC, NORMAL INSPECTION, NORMOCEPHALIC - Eye Exam Eye Exam: EOMI, Normal appearance, PERRL Pupil Exam: NORMAL ACCOMODATION, PERRL - ENT Exam ENT Exam: Mucous Membranes Moist, Normal Exam - Neck Exam Neck Exam: Full ROM, Normal Inspection. absent: Lymphadenopathy - Respiratory Exam Respiratory Exam: Clear to Ausculation Bilateral, NORMAL BREATHING PATTERN - Cardiovascular Exam Cardiovascular Exam: REGULAR RHYTHM, +S1, +S2. absent: Murmur - GI/Abdominal Exam GI & Abdominal Exam: Soft, Normal Bowel Sounds. absent: Tenderness - Extremities Exam Extremities Exam: Full ROM, Normal Capillary Refill, Normal Inspection. absent: Joint Swelling, Pedal Edema - Back Exam Back Exam: NORMAL INSPECTION - Neurological Exam Neurological Exam: Alert, Awake, CN II-XII Intact, Normal Gait, Oriented x3 - Psychiatric Exam Psychiatric exam: Normal Affect, Normal Mood - Skin Skin Exam: Dry, Intact, Normal Color, Warm Assessment and Plan (1) CAD (coronary artery disease) Status: Acute (2) GERD (gastroesophageal reflux disease) Status: Acute (3) Hypercholesteremia Status: Acute (4) Shortness of breath Status: Acute (5) Chest pain Status: Acute (6) Dizziness Status: Acute (7) Ischemic heart disease Status: Acute
[2018-05-09] MEDS: Albuterol-Ipratrop 3 mg / 0.5 (3 ml) UD INH SCH ×5 (04:42→20:28)
[2018-05-09 08:15] LABS: BASO # 0.1 K/uL (0.0-0.2); BASO % 1.6 % (0.0-2.0); EOS # 0.2 K/uL (0.0-0.7); EOS % 4.9 % (0.0-4.0); HEMOGLOBIN 8.7 g/dL (11.0-16.0); LYMPH # 0.8 K/uL (1.0-4.3); MEAN CELL VOLUME 80.1 fL (81.0-99.0); MEAN CORPUSCULAR HEMOGLOBIN 26.2 pg (27.0-31.0); MEAN CORPUSCULAR HGB CONC 32.8 g/dL (33.0-37.0); MEAN PLATELET VOLUME 9.2 fL (7.2-11.7); MONO # 0.4 K/uL (0.0-0.8); MONO % 11.2 % (0.0-10.0); NEUT # 2.5 K/uL (1.8-7.0); NEUT % 62.3 % (50.0-75.0); RBC 3.32 Mil/uL (3.80-5.20); RED CELL DISTRIBUTION WIDTH 19.6 % (11.5-14.5)
[2018-05-09] MEDS: Fluticasone-Vilanterol 100/25mcg Diskus INH SCH (09:04)
[2018-05-09 09:10] LABS: ALB/GLOB RATIO 1.2 (1.0-2.1); ALBUMIN 3.2 g/dL (3.5-5.0); ALT/SGPT 8 U/L (9-52); AST/SGOT 21 U/L (14-36); BLOOD UREA NITROGEN 9 mg/dL (7-17); CALCIUM 8.7 mg/dl (8.6-10.4); GFR NON-AFRICAN AMERICAN 60
[2018-05-09] MEDS: Enoxaparin 40 mg Syringe SC SCH (09:21)
[2018-05-09] MEDS: Azithromycin 500 MG in Sodium Chloride 0.9% 250 ML IVPB SCH (09:31)
--- NOTE | 2018-05-09 14:32 | CP.PCM.PN ---
Subjective - Date & Time of Evaluation Date of Evaluation: 05/09/18 - Subjective Subjective: Patient was examined today at bedside patient denies nausea, vomiting, fever, diarrhea, dizziness, shortness of breath Objective - Vital Signs/Intake and Output Vital Signs (last 24 hours): Temp Pulse Resp BP Pulse Ox 97.8 F 111 H 20 97/63 L 98 05/09/18 08:00 05/09/18 12:00 05/09/18 08:00 05/09/18 08:00 05/09/18 08:00 - Medications Medications: Current Medications Albuterol/Ipratropium (Duoneb 3 Mg/0.5 Mg (3 Ml) Ud) 3 ml INH RQ4 [facility] Last Admin: 05/09/18 11:06 Dose: Not Given Aspirin (Aspirin Chewable) 81 mg PO DAILY [facility] Last Admin: 05/09/18 09:21 Dose: 81 mg Clopidogrel Bisulfate (Plavix) 75 mg PO DAILY [facility] Last Admin: 05/09/18 09:21 Dose: 75 mg Docusate Sodium (Colace) 100 mg PO DAILY [facility] Last Admin: 05/09/18 09:21 Dose: 100 mg Enoxaparin Sodium (Lovenox) 40 mg SC DAILY [facility] Last Admin: 05/09/18 09:21 Dose: 40 mg Famotidine (Pepcid) 20 mg PO DAILY [facility] Last Admin: 05/09/18 09:21 Dose: 20 mg Fluticasone/Vilanterol (Breo Ellipta 100-25 Mcg Inh) 1 puff INH RQ24 [facility] Last Admin: 05/09/18 09:04 Dose: Not Given Guaifenesin (Robitussin) 100 mg PO Q4H PRN PRN Reason: Cough Ceftriaxone Sodium 1 gm/ (Sodium Chloride) 100 mls @ 100 mls/hr IVPB DAILY [facility]; Protocol Last Admin: 05/09/18 10:50 Dose: 100 mls/hr Azithromycin 500 mg/ Sodium (Chloride) 250 mls @ 250 mls/hr IVPB DAILY [facility]; Protocol Last Admin: 05/09/18 09:31 Dose: 250 mls/hr Lisinopril (Zestril) 2.5 mg PO DAILY [facility] Last Admin: 05/09/18 09:23 Dose: Not Given Metoprolol Tartrate (Lopressor) 25 mg PO BIDBS [facility] Last Admin: 05/09/18 06:40 Dose: Not Given Montelukast Sodium (Singulair) 10 mg PO HS [facility] Last Admin: 05/08/18 21:35 Dose: 10 mg Rosuvastatin Calcium (Crestor) 10 mg PO HS [facility] Last Admin: 05/08/18 21:34 Dose: 10 mg Temazepam (Restoril) 15 mg PO HS PRN PRN Reason: Insomnia Last Admin: 05/08/18 21:34 Dose: 15 mg - Labs Labs: 05/09/18 07:50 05/09/18 07:50 PT 11.5 SECONDS (9.7-12.2) 05/06/18 17:27 INR 1.1 05/06/18 17:27 APTT 33 SECONDS (21-34) 05/06/18 17:27 - Constitutional Appears: Well - Head Exam Head Exam: ATRAUMATIC, NORMAL INSPECTION, NORMOCEPHALIC - Eye Exam Eye Exam: EOMI, Normal appearance, PERRL Pupil Exam: NORMAL ACCOMODATION, PERRL - ENT Exam ENT Exam: Mucous Membranes Moist, Normal Exam - Neck Exam Neck Exam: Full ROM, Normal Inspection. absent: Lymphadenopathy - Respiratory Exam Respiratory Exam: Decreased Breath Sounds - Cardiovascular Exam Cardiovascular Exam: REGULAR RHYTHM, +S1, +S2 - GI/Abdominal Exam GI & Abdominal Exam: Soft, Diminished Bowel Sounds - Rectal Exam Rectal Exam: Deferred Assessment and Plan - Assessment and Plan (Free Text) Plan: medications reviewed labs and vitals reviewed aspirin chewable tab azithromycin 500mg breo ellipta 100-25 mcg inh ceftriaxone sodium 1gm colace crestor duoneb 3mg/0.5mg 3ml ud lopressor lovenox pepcid plavix restoril robitussin singulair zestril
[2018-05-10] MEDS: Albuterol-Ipratrop 3 mg / 0.5 (3 ml) UD INH SCH ×6 (01:23→20:29)
--- NOTE | 2018-05-10 08:00 | CP.PCM.PN ---
Subjective - Date & Time of Evaluation Date of Evaluation: 05/10/18 Time of Evaluation: 07:58 - Subjective Subjective: Trip Rob, PGY-1, Cardiology Progress Note for Dr. May Patient was seen and evaluated at bedside. Patient had no acute overnight events. Patient denies any acute symptoms. Objective - Vital Signs/Intake and Output Vital Signs (last 24 hours): Temp Pulse Resp BP Pulse Ox 97.7 F 88 20 106/71 97 05/09/18 23:15 05/09/18 23:25 05/09/18 23:15 05/09/18 23:15 05/09/18 23:15 - Medications Medications: Current Medications Albuterol/Ipratropium (Duoneb 3 Mg/0.5 Mg (3 Ml) Ud) 3 ml INH RQ4 [facility] Last Admin: 05/10/18 07:50 Dose: Not Given Aspirin (Aspirin Chewable) 81 mg PO DAILY [facility] Last Admin: 05/09/18 09:21 Dose: 81 mg Clopidogrel Bisulfate (Plavix) 75 mg PO DAILY [facility] Last Admin: 05/09/18 09:21 Dose: 75 mg Docusate Sodium (Colace) 100 mg PO DAILY [facility] Last Admin: 05/09/18 09:21 Dose: 100 mg Enoxaparin Sodium (Lovenox) 40 mg SC DAILY [facility] Last Admin: 05/09/18 09:21 Dose: 40 mg Famotidine (Pepcid) 20 mg PO DAILY [facility] Last Admin: 05/09/18 09:21 Dose: 20 mg Fluticasone/Vilanterol (Breo Ellipta 100-25 Mcg Inh) 1 puff INH RQ24 [facility] Last Admin: 05/09/18 09:04 Dose: Not Given Guaifenesin (Robitussin) 100 mg PO Q4H PRN PRN Reason: Cough Ceftriaxone Sodium 1 gm/ (Sodium Chloride) 100 mls @ 100 mls/hr IVPB DAILY [facility]; Protocol Last Admin: 05/09/18 10:50 Dose: 100 mls/hr Azithromycin 500 mg/ Sodium (Chloride) 250 mls @ 250 mls/hr IVPB DAILY [facility]; Protocol Last Admin: 05/09/18 09:31 Dose: 250 mls/hr Lisinopril (Zestril) 2.5 mg PO DAILY [facility] Last Admin: 05/09/18 09:23 Dose: Not Given Metoprolol Tartrate (Lopressor) 25 mg PO BIDBS [facility] Last Admin: 05/09/18 19:54 Dose: Not Given Montelukast Sodium (Singulair) 10 mg PO HS [facility] Last Admin: 05/09/18 21:29 Dose: 10 mg Rosuvastatin Calcium (Crestor) 10 mg PO HS [facility] Last Admin: 05/09/18 21:29 Dose: 10 mg Temazepam (Restoril) 15 mg PO HS PRN PRN Reason: Insomnia Last Admin: 05/09/18 21:29 Dose: 15 mg - Labs Labs: 05/09/18 07:50 05/09/18 07:50 PT 11.5 SECONDS (9.7-12.2) 05/06/18 17:27 INR 1.1 05/06/18 17:27 APTT 33 SECONDS (21-34) 05/06/18 17:27 - Constitutional Appears: Well, Non-toxic, No Acute Distress - Head Exam Head Exam: ATRAUMATIC, NORMAL INSPECTION, NORMOCEPHALIC - Eye Exam Eye Exam: EOMI, PERRL - ENT Exam ENT Exam: Mucous Membranes Moist - Respiratory Exam Respiratory Exam: Clear to Auscultation Bilateral, NORMAL BREATHING PATTERN - Cardiovascular Exam Cardiovascular Exam: REGULAR RHYTHM, RRR, +S1, +S2 - GI/Abdominal Exam GI & Abdominal Exam: Normal Bowel Sounds, Soft. absent: Tenderness - Extremities Exam Extremities exam: Positive for: full ROM, normal inspection, pedal edema (+1) - Neurological Exam Neurological exam: Alert, CN II-XII Intact, Oriented x3 - Skin Skin Exam: Dry, Intact, Normal Color Assessment and Plan (1) Shortness of breath Assessment & Plan: Unremarkable echocardiogram on this admission except for mild MR BNP: 427 Tropx3: unremarkable CXR: no focal consolidation. bilateral hilar prominence SOB unlikely 2/2 to congestive heart failure or from cardiac cause. Status: Acute (2) Hypercholesteremia Assessment & Plan: Continue with rosuvastatin Status: Acute (3) GERD (gastroesophageal reflux disease) Assessment & Plan: Continue with pepcid Status: Acute (4) CAD (coronary artery disease) Assessment & Plan: Status post stent in 08/2017 EKG: sinus rhythm with PVCs Tropx3:unremarkable Stress test scheduled today to evaluate for ischemic cardiac disease. Continue with aspirin, plavix, rosuvastatin, lisinopril, lopressor Status: Acute
[2018-05-10] MEDS: Enoxaparin 40 mg Syringe SC SCH (09:16)
[2018-05-10] MEDS: Azithromycin 500 MG in Sodium Chloride 0.9% 250 ML IVPB SCH (09:50)
[2018-05-10] MEDS ORDERED: Caffeine Citrated **INJ** 20 MG/ML IV ONE (10:45)
--- NOTE | 2018-05-10 16:21 | CP.PCM.PN ---
Subjective - Date & Time of Evaluation Date of Evaluation: 05/10/18 Time of Evaluation: 09:10 - Subjective Subjective: lying in bed pt feels weak no nausea or vmitting stress test today no fever sob better cardio claims it si not coming from chf pulm called d/w pt Objective - Vital Signs/Intake and Output Vital Signs (last 24 hours): Temp Pulse Resp BP Pulse Ox 97.9 F 103 H 20 110/79 96 05/10/18 08:00 05/10/18 09:21 05/10/18 08:00 05/10/18 09:21 05/10/18 08:00 - Medications Medications: Current Medications Albuterol/Ipratropium (Duoneb 3 Mg/0.5 Mg (3 Ml) Ud) 3 ml INH RQ4 [facility] Last Admin: 05/10/18 11:42 Dose: Not Given Aspirin (Aspirin Chewable) 81 mg PO DAILY [facility] Last Admin: 05/10/18 09:16 Dose: 81 mg Clopidogrel Bisulfate (Plavix) 75 mg PO DAILY [facility] Last Admin: 05/10/18 09:16 Dose: 75 mg Docusate Sodium (Colace) 100 mg PO DAILY [facility] Last Admin: 05/10/18 09:16 Dose: 100 mg Enoxaparin Sodium (Lovenox) 40 mg SC DAILY [facility] Last Admin: 05/10/18 09:16 Dose: 40 mg Famotidine (Pepcid) 20 mg PO DAILY [facility] Last Admin: 05/10/18 09:15 Dose: 20 mg Fluticasone/Vilanterol (Breo Ellipta 100-25 Mcg Inh) 1 puff INH RQ24 [facility] Last Admin: 05/09/18 09:04 Dose: Not Given Guaifenesin (Robitussin) 100 mg PO Q4H PRN PRN Reason: Cough Ceftriaxone Sodium 1 gm/ (Sodium Chloride) 100 mls @ 100 mls/hr IVPB DAILY [facility]; Protocol Last Admin: 05/10/18 11:00 Dose: Not Given Azithromycin 500 mg/ Sodium (Chloride) 250 mls @ 250 mls/hr IVPB DAILY [facility]; Protocol Last Admin: 05/10/18 09:50 Dose: 250 mls/hr Lisinopril (Zestril) 2.5 mg PO DAILY [facility] Last Admin: 05/10/18 09:16 Dose: 2.5 mg Metoprolol Tartrate (Lopressor) 25 mg PO BIDBS [facility] Last Admin: 05/10/18 09:18 Dose: 25 mg Montelukast Sodium (Singulair) 10 mg PO HS [facility] Last Admin: 05/09/18 21:29 Dose: 10 mg Rosuvastatin Calcium (Crestor) 10 mg PO HS [facility] Last Admin: 05/09/18 21:29 Dose: 10 mg Temazepam (Restoril) 15 mg PO HS PRN PRN Reason: Insomnia Last Admin: 05/09/18 21:29 Dose: 15 mg - Labs Labs: 05/09/18 07:50 05/09/18 07:50 PT 11.5 SECONDS (9.7-12.2) 05/06/18 17:27 INR 1.1 05/06/18 17:27 APTT 33 SECONDS (21-34) 05/06/18 17:27 - Constitutional Appears: Well - Head Exam Head Exam: ATRAUMATIC, NORMAL INSPECTION, NORMOCEPHALIC - Eye Exam Eye Exam: EOMI, Normal appearance, PERRL Pupil Exam: NORMAL ACCOMODATION, PERRL - ENT Exam ENT Exam: Mucous Membranes Moist, Normal Exam - Neck Exam Neck Exam: Full ROM, Normal Inspection. absent: Lymphadenopathy - Respiratory Exam Respiratory Exam: Decreased Breath Sounds - Cardiovascular Exam Cardiovascular Exam: REGULAR RHYTHM, +S1, +S2 - GI/Abdominal Exam GI & Abdominal Exam: Soft, Diminished Bowel Sounds - Rectal Exam Rectal Exam: Deferred - Neurological Exam Neurological Exam: Oriented x3 Assessment and Plan (1) CAD (coronary artery disease) Status: Acute (2) GERD (gastroesophageal reflux disease) Status: Acute (3) Hypercholesteremia Status: Acute (4) Shortness of breath Status: Acute (5) Asthma Status: Acute (6) Chest pain Status: Acute (7) History of CVA (cerebrovascular accident) Status: Acute (8) Hypotension Status: Acute (9) Ischemic heart disease Status: Acute (10) Pneumonia Status: Acute (11) Weakness of limb Status: Acute - Assessment and Plan (Free Text) Plan: s/p cardio Unremarkable echocardiogram on this admission except for mild MR BNP: 427 Tropx3: unremarkable CXR: no focal consolidation. bilateral hilar prominence pulm called stress test pending lst blood test o 05/[address] pulm óscar about consultation Aspirin chewable Azithromycin iv Alogliptin Ceftriaxone sodium iv Colace Crestor DuoNeb Lopressor Lovenox Pepcid Plavix Restoril Robitussin Singulair Zestril medications reviewed labs reviewed vitals reviewed mod complexicity of care
[2018-05-10] MEDS ORDERED: DiphenhydrAMINE 50 mg/ml Inj IVP STA (21:56)
[2018-05-10] MEDS ORDERED: MethylPREDNISolone 40 mg Vial IVP STA ×2 (21:59→22:21)
--- NOTE | 2018-05-10 23:11 | CP.PCM.CON ---
History of Present Illness - History of Present Illness History of Present Illness: 82 year old female with PMH of CAD,s/p stent 08/2017,hypertension, hypercholesterolemia, and GERD admoitted with shortness of breath since last cardiac catheterization in 08/2017. ICU consulted for lip swelling and muffled speech x few hrs.denies difficulty breathing or swollowingPatient started on ACEI 05/07.received dose on 04/2918 and today had nuclear stress test ealier today PSH: knee replacement in 2004 and hysterectomy in 2000 Review of Systems - Constitutional Constitutional: absent: Chills, Fever - EENT Eyes: absent: Blurred Vision, Pain Ears: absent: Dizziness Nose/Mouth/Throat: Change in Voice. absent: Nasal Congestion, Sore Throat - Cardiovascular Cardiovascular: absent: Chest Pain, Dyspnea - Respiratory Respiratory: Dyspnea on Exertion. absent: Cough - Gastrointestinal Gastrointestinal: absent: Abdominal Pain, Nausea, Vomiting - Genitourinary Genitourinary: absent: Dysuria - Musculoskeletal Musculoskeletal: absent: Back Pain - Integumentary Integumentary: absent: Pruritus, Rash - Neurological Neurological: absent: Dizziness - Hematologic/Lymphatic Hematologic: absent: Easy Bleeding Past Patient History - Infectious Disease Hx of Infectious Diseases: None - Past Medical History & Family History Past Medical History?: Yes - Past Social History Smoking Status: Former Smoker - CARDIAC Hx Hypercholesterolemia: Yes - PULMONARY Hx Respiratory Disorders: No - NEUROLOGICAL Hx Neurological Disorder: No - HEENT Hx HEENT Problems: Yes Hx Cataracts: Yes (BOTH EYES) - RENAL Hx Chronic Kidney Disease: No - ENDOCRINE/METABOLIC Hx Endocrine Disorders: No - HEMATOLOGICAL/ONCOLOGICAL Hx Blood Disorders: No Hx Blood Transfusions: No - INTEGUMENTARY Hx Dermatological Problems: No - MUSCULOSKELETAL/RHEUMATOLOGICAL Hx Arthritis: Yes Hx Falls: No - GASTROINTESTINAL Hx Gastrointestinal Disorders: Yes Hx Gastroesophageal Reflux: Yes Hx Ulcer: Yes - GENITOURINARY/GYNECOLOGICAL Hx Genitourinary Disorders: No - PSYCHIATRIC Hx Substance Use: No - SURGICAL HISTORY Hx Coronary Stent: Yes (x1 AUGUST 2017) - ANESTHESIA Hx Anesthesia: Yes Hx Anesthesia Reactions: No Hx Malignant Hyperthermia: No Meds Allergies/Adverse Reactions: Allergies Allergy/AdvReac Type Severity Reaction Status Date / Time No Known Allergies Allergy Verified 03/26/18 10:51 - Medications Medications: Current Medications Albuterol/Ipratropium (Duoneb 3 Mg/0.5 Mg (3 Ml) Ud) 3 ml INH RQ4 [facility] Last Admin: 05/10/18 20:29 Dose: Not Given Aspirin (Aspirin Chewable) 81 mg PO DAILY [facility] Last Admin: 05/10/18 09:16 Dose: 81 mg Clopidogrel Bisulfate (Plavix) 75 mg PO DAILY [facility] Last Admin: 05/10/18 09:16 Dose: 75 mg Docusate Sodium (Colace) 100 mg PO DAILY [facility] Last Admin: 05/10/18 09:16 Dose: 100 mg Enoxaparin Sodium (Lovenox) 40 mg SC DAILY [facility] Last Admin: 05/10/18 09:16 Dose: 40 mg Famotidine (Pepcid) 20 mg PO DAILY [facility] Last Admin: 05/10/18 09:15 Dose: 20 mg Fluticasone/Vilanterol (Breo Ellipta 100-25 Mcg Inh) 1 puff INH RQ24 [facility] Last Admin: 05/09/18 09:04 Dose: Not Given Guaifenesin (Robitussin) 100 mg PO Q4H PRN PRN Reason: Cough Ceftriaxone Sodium 1 gm/ (Sodium Chloride) 100 mls @ 100 mls/hr IVPB DAILY [facility]; Protocol Last Admin: 05/10/18 11:00 Dose: Not Given Azithromycin 500 mg/ Sodium (Chloride) 250 mls @ 250 mls/hr IVPB DAILY [facility]; Protocol Last Admin: 05/10/18 09:50 Dose: 250 mls/hr Lisinopril (Zestril) 2.5 mg PO DAILY [facility] Last Admin: 05/10/18 09:16 Dose: 2.5 mg Metoprolol Tartrate (Lopressor) 25 mg PO BIDBS [facility] Last Admin: 05/10/18 17:34 Dose: 25 mg Montelukast Sodium (Singulair) 10 mg PO HS [facility] Last Admin: 05/09/18 21:29 Dose: 10 mg Rosuvastatin Calcium (Crestor) 10 mg PO HS [facility] Last Admin: 05/09/18 21:29 Dose: 10 mg Temazepam (Restoril) 15 mg PO HS PRN PRN Reason: Insomnia Last Admin: 05/09/18 21:29 Dose: 15 mg Physical Exam - Constitutional Appears: No Acute Distress - Head Exam Head Exam: ATRAUMATIC, NORMAL INSPECTION, NORMOCEPHALIC - Eye Exam Pupil Exam: NORMAL ACCOMODATION - ENT Exam ENT Exam: Mucous Membranes Moist Additional comments: upper lip swelling mildly edematous uvula speech difficult to follow unless when she speaks loudly - Neck Exam Neck exam: Positive for: Normal Inspection. Negative for: Lymphadenopathy - Respiratory Exam Respiratory Exam: Clear to Auscultation Bilateral, NORMAL BREATHING PATTERN. absent: Rhonchi, Wheezes Additional comments: No stridor - Cardiovascular Exam Cardiovascular Exam: REGULAR RHYTHM. absent: JVD - GI/Abdominal Exam GI & Abdominal Exam: Normal Bowel Sounds, Soft. absent: Tenderness - Extremities Exam Extremities exam: Negative for: calf tenderness - Neurological Exam Neurological exam: Alert, Oriented x3 Results - Vital Signs Recent Vital Signs: Last Vital Signs Temp 97.9 F 05/10/18 22:22 Pulse 88 05/10/18 22:22 Resp 20 05/10/18 22:22 BP 129/69 05/10/18 22:22 Pulse Ox 97 05/10/18 22:22 - Labs Result Diagrams: 05/09/18 07:50 05/09/18 07:50 Assessment & Plan - Assessment and Plan (Free Text) Assessment: 1.Angio-edema d/c ACEI received benadryl,steroids and pepcid on f/u speech better Ct results noted.(upper airway patent) continue monitoring on 5T 2.CAD s/p stent,HTN,Hyperlipidemia continue meds 3.anemia f/u h/h
[2018-05-11] MEDS: Albuterol-Ipratrop 3 mg / 0.5 (3 ml) UD INH SCH ×5 (00:26→19:10)
--- NOTE | 2018-05-11 07:35 | CP.PCM.PN ---
Subjective - Date & Time of Evaluation Date of Evaluation: 05/11/18 Time of Evaluation: 07:33 - Subjective Subjective: Trip Rob, PGY-1, Cardiology Progress Note for Dr. May Patient was seen and evaluated at bedside. Patient had no acute overnight events. Patient denies any acute symptoms. Objective - Vital Signs/Intake and Output Vital Signs (last 24 hours): Temp Pulse Resp BP Pulse Ox 98 F 89 20 105/64 95 05/10/18 23:37 05/10/18 23:37 05/10/18 23:37 05/11/18 06:35 05/10/18 23:37 - Medications Medications: Current Medications Albuterol/Ipratropium (Duoneb 3 Mg/0.5 Mg (3 Ml) Ud) 3 ml INH RQ4 [facility] Last Admin: 05/11/18 03:00 Dose: Not Given Aspirin (Aspirin Chewable) 81 mg PO DAILY [facility] Last Admin: 05/10/18 09:16 Dose: 81 mg Clopidogrel Bisulfate (Plavix) 75 mg PO DAILY [facility] Last Admin: 05/10/18 09:16 Dose: 75 mg Docusate Sodium (Colace) 100 mg PO DAILY [facility] Last Admin: 05/10/18 09:16 Dose: 100 mg Enoxaparin Sodium (Lovenox) 40 mg SC DAILY [facility] Last Admin: 05/10/18 09:16 Dose: 40 mg Famotidine (Pepcid) 20 mg PO DAILY [facility] Last Admin: 05/10/18 09:15 Dose: 20 mg Fluticasone/Vilanterol (Breo Ellipta 100-25 Mcg Inh) 1 puff INH RQ24 [facility] Last Admin: 05/09/18 09:04 Dose: Not Given Guaifenesin (Robitussin) 100 mg PO Q4H PRN PRN Reason: Cough Ceftriaxone Sodium 1 gm/ (Sodium Chloride) 100 mls @ 100 mls/hr IVPB DAILY [facility]; Protocol Last Admin: 05/10/18 11:00 Dose: Not Given Azithromycin 500 mg/ Sodium (Chloride) 250 mls @ 250 mls/hr IVPB DAILY [facility]; Protocol Last Admin: 05/10/18 09:50 Dose: 250 mls/hr Lisinopril (Zestril) 2.5 mg PO DAILY [facility] Last Admin: 05/10/18 09:16 Dose: 2.5 mg Metoprolol Tartrate (Lopressor) 25 mg PO BIDBS [facility] Last Admin: 05/11/18 06:35 Dose: Not Given Montelukast Sodium (Singulair) 10 mg PO HS [facility] Last Admin: 05/10/18 23:52 Dose: Not Given Rosuvastatin Calcium (Crestor) 10 mg PO HS [facility] Last Admin: 05/10/18 23:51 Dose: Not Given Temazepam (Restoril) 15 mg PO HS PRN PRN Reason: Insomnia Last Admin: 05/09/18 21:29 Dose: 15 mg - Labs Labs: 05/09/18 07:50 05/09/18 07:50 PT 11.5 SECONDS (9.7-12.2) 05/06/18 17:27 INR 1.1 05/06/18 17:27 APTT 33 SECONDS (21-34) 05/06/18 17:27 - Constitutional Appears: Well, Non-toxic, No Acute Distress - Head Exam Head Exam: ATRAUMATIC, NORMAL INSPECTION, NORMOCEPHALIC - Eye Exam Eye Exam: EOMI, PERRL - ENT Exam ENT Exam: Mucous Membranes Moist - Respiratory Exam Respiratory Exam: Clear to Auscultation Bilateral, NORMAL BREATHING PATTERN - Cardiovascular Exam Cardiovascular Exam: REGULAR RHYTHM, RRR, +S1, +S2 - GI/Abdominal Exam GI & Abdominal Exam: Normal Bowel Sounds, Soft. absent: Tenderness - Extremities Exam Extremities exam: Positive for: full ROM, normal inspection, pedal edema (+1) - Neurological Exam Neurological exam: Alert, CN II-XII Intact, Oriented x3 - Skin Skin Exam: Dry, Intact, Normal Color Assessment and Plan (1) Shortness of breath Assessment & Plan: Unremarkable echocardiogram on this admission except for mild MR BNP: 427 Tropx3: unremarkable CXR: no focal consolidation. bilateral hilar prominence SOB unlikely 2/2 to congestive heart failure or from cardiac cause. Status: Acute (2) Hypercholesteremia Assessment & Plan: Continue with rosuvastatin Status: Acute (3) GERD (gastroesophageal reflux disease) Assessment & Plan: Continue with pepcid Status: Acute (4) CAD (coronary artery disease) Assessment & Plan: Status post stent in 08/2017 EKG: sinus rhythm with PVCs Tropx4:unremarkable Stress test rescheduled today to evaluate for ischemic cardiac disease. Continue with aspirin, plavix, rosuvastatin, lisinopril, lopressor Status: Acute
[2018-05-11] MEDS: Fluticasone-Vilanterol 100/25mcg Diskus INH SCH (07:36)
--- NOTE | 2018-05-11 07:52 | CP.PCM.PN ---
<Shruthi Contreras P - Last Filed: 05/11/18 15:10> Subjective - Date & Time of Evaluation Date of Evaluation: 05/10/18 Time of Evaluation: 22:00 - Subjective Subjective: House doctor note. Called to evaluate patient for lip swelling at approximately 7:15pm. At that time patient noted to have mild R upper lip swelling, without edema of tongue or uvula. Breath sounds were clear. Patient was given 25mg of Benadryl. I was called again at 10pm for worsening lip swelling. Patient's upper lip, lower lip and tongue had become swollen and voice was muffled. Lungs were clear on auscultation. Patient was given Benadryl 50mg IVP, Solumedrol 120mg IVP, Pepcid 20mg IVP stat. Upon chart review, it was found patient was started on lisinopril on 05/07/18 while admitted, this was discontinued. CT neck was ordered which showed Glossomegaly with marked edematous thickening of the maxillary and mandibular soft tissues of the upper and lower lips. The upper airway remains patent. ICU consult was obtained, however patient began to show improvement in swelling and voice improved as well. Patient was monitored closely overnight; swelling continues to improve. Objective - Vital Signs/Intake and Output Vital Signs (last 24 hours): Temp Pulse Resp BP Pulse Ox 98 F 89 20 105/64 95 05/10/18 23:37 05/10/18 23:37 05/10/18 23:37 05/11/18 06:35 05/10/18 23:37 - Medications Medications: Current Medications Albuterol/Ipratropium (Duoneb 3 Mg/0.5 Mg (3 Ml) Ud) 3 ml INH RQ4 [facility] Last Admin: 05/11/18 07:36 Dose: Not Given Aspirin (Aspirin Chewable) 81 mg PO DAILY [facility] Last Admin: 05/10/18 09:16 Dose: 81 mg Clopidogrel Bisulfate (Plavix) 75 mg PO DAILY [facility] Last Admin: 05/10/18 09:16 Dose: 75 mg Docusate Sodium (Colace) 100 mg PO DAILY [facility] Last Admin: 05/10/18 09:16 Dose: 100 mg Enoxaparin Sodium (Lovenox) 40 mg SC DAILY [facility] Last Admin: 05/10/18 09:16 Dose: 40 mg Famotidine (Pepcid) 20 mg PO DAILY [facility] Last Admin: 05/10/18 09:15 Dose: 20 mg Fluticasone/Vilanterol (Breo Ellipta 100-25 Mcg Inh) 1 puff INH RQ24 [facility] Last Admin: 05/11/18 07:36 Dose: Not Given Guaifenesin (Robitussin) 100 mg PO Q4H PRN PRN Reason: Cough Ceftriaxone Sodium 1 gm/ (Sodium Chloride) 100 mls @ 100 mls/hr IVPB DAILY [facility]; Protocol Last Admin: 05/10/18 11:00 Dose: Not Given Azithromycin 500 mg/ Sodium (Chloride) 250 mls @ 250 mls/hr IVPB DAILY [facility]; Protocol Last Admin: 05/10/18 09:50 Dose: 250 mls/hr Lisinopril (Zestril) 2.5 mg PO DAILY [facility] Last Admin: 05/10/18 09:16 Dose: 2.5 mg Metoprolol Tartrate (Lopressor) 25 mg PO BIDBS [facility] Last Admin: 05/11/18 06:35 Dose: Not Given Montelukast Sodium (Singulair) 10 mg PO HS [facility] Last Admin: 05/10/18 23:52 Dose: Not Given Rosuvastatin Calcium (Crestor) 10 mg PO HS [facility] Last Admin: 05/10/18 23:51 Dose: Not Given Temazepam (Restoril) 15 mg PO HS PRN PRN Reason: Insomnia Last Admin: 05/09/18 21:29 Dose: 15 mg - Labs Labs: 05/09/18 07:50 05/09/18 07:50 PT 11.5 SECONDS (9.7-12.2) 05/06/18 17:27 INR 1.1 05/06/18 17:27 APTT 33 SECONDS (21-34) 05/06/18 17:27 <Bassam Sherwood P - Last Filed: 05/12/18 08:46> Objective - Vital Signs/Intake and Output Vital Signs (last 24 hours): Temp Pulse Resp BP Pulse Ox 97.5 F L 82 20 123/83 96 05/12/18 07:00 05/12/18 07:27 05/12/18 07:00 05/12/18 07:00 05/12/18 07:00 - Medications Medications: Current Medications Aspirin (Aspirin Chewable) 81 mg PO DAILY [facility] Last Admin: 05/11/18 09:51 Dose: 81 mg Clopidogrel Bisulfate (Plavix) 75 mg PO DAILY [facility] Last Admin: 05/11/18 09:51 Dose: 75 mg Docusate Sodium (Colace) 100 mg PO DAILY [facility] Last Admin: 05/11/18 09:51 Dose: 100 mg Enoxaparin Sodium (Lovenox) 40 mg SC DAILY [facility] Last Admin: 05/11/18 09:50 Dose: 40 mg Famotidine (Pepcid) 20 mg PO DAILY [facility] Last Admin: 05/11/18 09:51 Dose: 20 mg Fluticasone/Vilanterol (Breo Ellipta 100-25 Mcg Inh) 1 puff INH RQ24 [facility] Last Admin: 05/11/18 07:36 Dose: Not Given Guaifenesin (Robitussin) 100 mg PO Q4H PRN PRN Reason: Cough Azithromycin 500 mg/ Sodium (Chloride) 250 mls @ 250 mls/hr IVPB DAILY [facility]; Protocol Last Admin: 05/11/18 09:51 Dose: 250 mls/hr Methylprednisolone (Solu-Medrol) 40 mg IVP Q8 [facility] Last Admin: 05/12/18 06:16 Dose: 40 mg Metoprolol Tartrate (Lopressor) 25 mg PO BIDBS [facility] Last Admin: 05/12/18 06:36 Dose: 25 mg Montelukast Sodium (Singulair) 10 mg PO HS [facility] Last Admin: 05/11/18 21:22 Dose: Not Given Rosuvastatin Calcium (Crestor) 10 mg PO HS [facility] Last Admin: 05/11/18 21:19 Dose: 10 mg Temazepam (Restoril) 15 mg PO HS PRN PRN Reason: Insomnia Last Admin: 05/11/18 21:18 Dose: 15 mg - Labs Labs: 05/09/18 07:50 05/09/18 07:50 PT 11.5 SECONDS (9.7-12.2) 05/06/18 17:27 INR 1.1 05/06/18 17:27 APTT 33 SECONDS (21-34) 05/06/18 17:27 Attending/Attestation - Attestation I have personally seen and examined this patient.: Yes I have fully participated in the care of the patient.: Yes I have reviewed all pertinent clinical information, including history, physical exam and plan: Yes Notes (Text): Patient evaluated with resident/icu health analytics consultant and serial exam, reviewed CT personally agreed with the assessment and plan. 05/12/18 08:44
--- NOTE | 2018-05-11 09:01 | CP.PCM.PN ---
Subjective - Date & Time of Evaluation Date of Evaluation: 05/11/18 Time of Evaluation: 08:30 - Subjective Subjective: ICU Consult Note for Dr. Tran This is an 82 y o female with PMhx CAD s/p stent 08/2017, HTN, HLD, and GERD, admitted for sob present since last cardiac cath in 08/2017. Reason for ICU re- consulted this am was because of concern for possible angioedema. Pt was evaluated by house doctor at 7:15 am this morning and was noted to have mild lip swelling and muffled speech present x several hrs. Pt denied difficulties with breathing or swallowing at time. Was started on HELENE inhibitor therapy 05/07/18, received dose on that day and today. Pt was given at time Solu-Medrol, Benadryl, and Pepcid. On exam currently, pt saturating well on room air, in NAD, speaking full sentences without associated shortness of breath. States her lip swelling has much improved. Denies chest pain, fever, chills, n/v/d/c, abd pain, urinary complaints, or other symptoms. Objective - Vital Signs/Intake and Output Vital Signs (last 24 hours): Temp Pulse Resp BP Pulse Ox 97.9 F 98 H 20 122/77 95 05/11/18 07:00 05/11/18 07:56 05/11/18 07:00 05/11/18 07:00 05/11/18 07:00 - Medications Medications: Current Medications Albuterol/Ipratropium (Duoneb 3 Mg/0.5 Mg (3 Ml) Ud) 3 ml INH RQ4 [facility] Last Admin: 05/11/18 07:36 Dose: Not Given Aspirin (Aspirin Chewable) 81 mg PO DAILY [facility] Last Admin: 05/10/18 09:16 Dose: 81 mg Clopidogrel Bisulfate (Plavix) 75 mg PO DAILY [facility] Last Admin: 05/10/18 09:16 Dose: 75 mg Docusate Sodium (Colace) 100 mg PO DAILY [facility] Last Admin: 05/10/18 09:16 Dose: 100 mg Enoxaparin Sodium (Lovenox) 40 mg SC DAILY [facility] Last Admin: 05/10/18 09:16 Dose: 40 mg Famotidine (Pepcid) 20 mg PO DAILY [facility] Last Admin: 05/10/18 09:15 Dose: 20 mg Fluticasone/Vilanterol (Breo Ellipta 100-25 Mcg Inh) 1 puff INH RQ24 [facility] Last Admin: 05/11/18 07:36 Dose: Not Given Guaifenesin (Robitussin) 100 mg PO Q4H PRN PRN Reason: Cough Ceftriaxone Sodium 1 gm/ (Sodium Chloride) 100 mls @ 100 mls/hr IVPB DAILY [facility]; Protocol Last Admin: 05/10/18 11:00 Dose: Not Given Azithromycin 500 mg/ Sodium (Chloride) 250 mls @ 250 mls/hr IVPB DAILY [facility]; Protocol Last Admin: 05/10/18 09:50 Dose: 250 mls/hr Metoprolol Tartrate (Lopressor) 25 mg PO BIDBS [facility] Last Admin: 05/11/18 06:35 Dose: Not Given Montelukast Sodium (Singulair) 10 mg PO HS [facility] Last Admin: 05/10/18 23:52 Dose: Not Given Rosuvastatin Calcium (Crestor) 10 mg PO HS [facility] Last Admin: 05/10/18 23:51 Dose: Not Given Temazepam (Restoril) 15 mg PO HS PRN PRN Reason: Insomnia Last Admin: 05/09/18 21:29 Dose: 15 mg - Labs Labs: 05/09/18 07:50 05/09/18 07:50 PT 11.5 SECONDS (9.7-12.2) 05/06/18 17:27 INR 1.1 05/06/18 17:27 APTT 33 SECONDS (21-34) 05/06/18 17:27 - Constitutional Appears: Non-toxic, No Acute Distress - Head Exam Head Exam: ATRAUMATIC, NORMOCEPHALIC - Eye Exam Eye Exam: EOMI, Normal appearance, PERRL - ENT Exam ENT Exam: Mucous Membranes Moist Additional comments: Lip swelling reduced on exam - Respiratory Exam Respiratory Exam: Clear to Ausculation Bilateral, NORMAL BREATHING PATTERN. absent: Rales, Rhonchi, Wheezes - Cardiovascular Exam Cardiovascular Exam: REGULAR RHYTHM, +S1, +S2. absent: Gallop, Rubs, Murmur - GI/Abdominal Exam GI & Abdominal Exam: Soft, Normal Bowel Sounds. absent: Distended, Tenderness, Organomegaly - Extremities Exam Extremities Exam: Full ROM, Normal Capillary Refill, Normal Inspection. absent: Pedal Edema - Neurological Exam Neurological Exam: Alert, Awake, CN II-XII Intact, Oriented x3 - Skin Skin Exam: Dry, Intact, Warm Assessment and Plan - Assessment and Plan (Free Text) Assessment: This is an 82 y o female with PMhx CAD s/p stent 08/2017, HTN, HLD, and GERD, admitted for sob present since last cardiac cath in 08/2017. Reason for ICU re-consulted this am was because of concern for possible angioedema. Plan: -Hemodynamically stable at this time, saturating well on room air -Angioedema symptoms resolved, speech clear, pt speaking full sentences on exam -CT results noted, upper airway patent -Recommend avoiding ACEi/ARB therapy as this may be the trigger for pt's angioedema symptoms at this time; recommend to d/c Zestril -Pt does not meet criteria for ICU admission at this time -Can re-consult as needed Pt seen, examined with, and plan discussed with Dr. Tran, attending physician. Kevin Santana DO PGY-1, Columnist/Commentator Pager #[phone]
[2018-05-11] MEDS: Enoxaparin 40 mg Syringe SC SCH (09:50)
[2018-05-11] MEDS: Azithromycin 500 MG in Sodium Chloride 0.9% 250 ML IVPB SCH (09:51)
--- NOTE | 2018-05-11 12:14 | CT ---
Date of service: 05/10/2018 CT chest without IV contrast Indication: angioedema, shortness of breath Technique: Contiguous axial images were obtained through the chest without intravenous contrast enhancement. Sagittal and coronal reconstructions were generated and reviewed. This CT exam was performed using 1 or more of the following dose reduction techniques: Automated exposure control, adjustment of the MAA and/or kV according to patient size, and/or use of iterative reconstruction technique. Radiation dose (DLP): 644.15 MGy-cm. Comparison: CTA chest performed 02/20/18 Findings: Visualized portions of the inferior thyroid gland appear unremarkable. The unenhanced mediastinal and hilar vascular structures appear grossly unremarkable. Heart size appears top normal. Atherosclerotic calcifications of the aorta. Bibasilar atelectasis. No focal consolidation. No pleural effusion. No pneumothorax. No suspicious pulmonary nodules measuring greater than 5 mm. Limited visualization of the noncontrast upper abdomen: Left adrenal gland hypertrophy. The right adrenal gland appears unremarkable. Degenerative changes of the spine. Impression: Mild bibasilar atelectasis. Left adrenal gland hypertrophy. Preliminary impression was provided by [address].
[2018-05-11] MEDS ORDERED: Caffeine Citrated **INJ** 20 MG/ML IV ONE (12:40)
--- NOTE | 2018-05-11 15:14 | CP.PCM.CON ---
History of Present Illness - History of Present Illness History of Present Illness: 82 year old female presenting to the hospital with shortness of breath and chest pressure. She states the shortness of breath began after she had stents placed for CAD in August of 2017. She denies having the SOB prior to the re-vascula rization. The SOB has gotten worse over the last couple months whereas now the patient can only walk half a block before becoming short of breath. She saw Dr. Pink (PCP) who said if you feel this way again come to the hospital. Since being in the hospital patient has been seen by cardiology who states her shortness of breath is unlikely to have a cardiac origin. ' Patient denies any history of respiratory illness. She states she smoked 50 years ago for about 5 years. She denies allergies to medications or environmental irritants. 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 She has carpet at home but states she cleans it regularly. Over night on 05/10/18 patient had an episode of angioedema. Her upper and lower lips, tongue, maxillary and mandibular soft tissues became swollen. Lisinopril was ceased and benadryl and steroids were given. Patient states this morning she still feels as though her face is swollen but it has improved since over night. PMHx: CAD, HTN, HLD, GERD, Osteoarthritis PSHx: partial hysterectomy, right total knee replacement, CAD w/ stents Allergies: denies Social: smoked 5 years 50 years ago Hospitalizations: denies excluding surgeries Medications: states she takes something for acid refluc and OTC pain medication for osteoarthritis. ROS: Patient states her face still feels swollen Denies shortness of breath, CP, nausea, vomiting, HEENT: Atraumatic, normocephalic, moist mucous membranes, slightly swollen upper and lower lips. Respiratory: Lungs clear to auscultation bilaterally Cardiovascular: regular rate and rhythm GI/abdominal: normoactive bowel sounds Extremities: no pedal edema Neurologic: alert Assessment/Plan 1. COPD exacerbation. Continue current regimen of duonebs, guaifenesin, Breo. Past Patient History - Infectious Disease Hx of Infectious Diseases: None - Past Medical History & Family History Past Medical History?: Yes - Past Social History Smoking Status: Former Smoker - CARDIAC Hx Hypercholesterolemia: Yes - PULMONARY Hx Respiratory Disorders: No - NEUROLOGICAL Hx Neurological Disorder: No - HEENT Hx HEENT Problems: Yes Hx Cataracts: Yes (BOTH EYES) - RENAL Hx Chronic Kidney Disease: No - ENDOCRINE/METABOLIC Hx Endocrine Disorders: No - HEMATOLOGICAL/ONCOLOGICAL Hx Blood Disorders: No Hx Blood Transfusions: No - INTEGUMENTARY Hx Dermatological Problems: No - MUSCULOSKELETAL/RHEUMATOLOGICAL Hx Arthritis: Yes Hx Falls: No - GASTROINTESTINAL Hx Gastrointestinal Disorders: Yes Hx Gastroesophageal Reflux: Yes Hx Ulcer: Yes - GENITOURINARY/GYNECOLOGICAL Hx Genitourinary Disorders: No - PSYCHIATRIC Hx Substance Use: No - SURGICAL HISTORY Hx Coronary Stent: Yes (x1 AUGUST 2017) - ANESTHESIA Hx Anesthesia: Yes Hx Anesthesia Reactions: No Hx Malignant Hyperthermia: No Meds Allergies/Adverse Reactions: Allergies Allergy/AdvReac Type Severity Reaction Status Date / Time No Known Allergies Allergy Verified 03/26/18 10:51 - Medications Medications: Current Medications Albuterol/Ipratropium (Duoneb 3 Mg/0.5 Mg (3 Ml) Ud) 3 ml INH RQ4 [facility] Last Admin: 05/11/18 07:36 Dose: Not Given Aspirin (Aspirin Chewable) 81 mg PO DAILY [facility] Last Admin: 05/11/18 09:51 Dose: 81 mg Clopidogrel Bisulfate (Plavix) 75 mg PO DAILY [facility] Last Admin: 05/11/18 09:51 Dose: 75 mg Docusate Sodium (Colace) 100 mg PO DAILY [facility] Last Admin: 05/11/18 09:51 Dose: 100 mg Enoxaparin Sodium (Lovenox) 40 mg SC DAILY [facility] Last Admin: 05/11/18 09:50 Dose: 40 mg Famotidine (Pepcid) 20 mg PO DAILY [facility] Last Admin: 05/11/18 09:51 Dose: 20 mg Fluticasone/Vilanterol (Breo Ellipta 100-25 Mcg Inh) 1 puff INH RQ24 [facility] Last Admin: 05/11/18 07:36 Dose: Not Given Guaifenesin (Robitussin) 100 mg PO Q4H PRN PRN Reason: Cough Ceftriaxone Sodium 1 gm/ (Sodium Chloride) 100 mls @ 100 mls/hr IVPB DAILY [facility]; Protocol Last Admin: 05/11/18 10:50 Dose: Not Given Azithromycin 500 mg/ Sodium (Chloride) 250 mls @ 250 mls/hr IVPB DAILY [facility]; Protocol Last Admin: 05/11/18 09:51 Dose: 250 mls/hr Metoprolol Tartrate (Lopressor) 25 mg PO BIDBS [facility] Last Admin: 05/11/18 06:35 Dose: Not Given Montelukast Sodium (Singulair) 10 mg PO HS [facility] Last Admin: 05/10/18 23:52 Dose: Not Given Rosuvastatin Calcium (Crestor) 10 mg PO HS [facility] Last Admin: 05/10/18 23:51 Dose: Not Given Temazepam (Restoril) 15 mg PO HS PRN PRN Reason: Insomnia Last Admin: 05/09/18 21:29 Dose: 15 mg Results - Vital Signs Recent Vital Signs: Last Vital Signs Temp 97.9 F 05/11/18 07:00 Pulse 98 H 05/11/18 12:00 Resp 20 05/11/18 07:00 BP 122/77 05/11/18 07:00 Pulse Ox 95 05/11/18 07:00 - Labs Result Diagrams: 05/09/18 07:50 05/09/18 07:50
--- NOTE | 2018-05-11 17:06 | CT ---
Date of service: 05/10/2018 PROCEDURE: CT NECK WITHOUT CONTRAST HISTORY: Angioedema, shortness of breath COMPARISON: None available. TECHNIQUE: CT of the neck without intravenous contrast. Coronal and sagittal reformats generated. Radiation dose: Total exam DLP = 454.89 mGy-cm. This CT exam was performed using one or more of the following dose reduction techniques: Automated exposure control, adjustment of the mA and/or kV according to patient size, and/or use of iterative reconstruction technique. FINDINGS: NASOPHARYNX: Unremarkable. SUPRAHYOID NECK: There is edematous enlargement of the tongue consistent with angioedema however the oropharyngeal airway patent.. The , parapharyngeal space and retropharyngeal space unremarkable.. INFRAHYOID NECK: Unremarkable larynx, hypopharynx, and supraglottic space. Vocal cords intact. MASS: There are no large cervical masses or collections. GLANDS: Parotid and submandibular glands unremarkable. Normal size thyroid gland, without nodule. LYMPH NODES: There is soft tissue seen in the vallecular likely representing encroaching lingual tonsils as well as some residual and or retained secretion. Free margin of the epiglottis unremarkable without evidence of narrowing of the airway or upper trachea so far as can be seen. CERVICAL SPINE: Mild multilevel degenerative spondylosis of the cervical spine. OTHER FINDINGS: There appears to be significant infiltration/edema of the upper lips to a lesser degree the soft tissues of the lower lip and chin more so on the right side consistent with this patient's history of angioedema. As well as the soft degree lower and tissues of the lower lips and chin and to a lesser Partially calcified atherosclerotic plaque both carotid bifurcations left greater than right IMPRESSION: Marked soft tissue swelling of the upper and to a lesser degree lower lips and soft tissues anterior to the symphysis consistent with angioedema. Edematous enlargement of the tongue. Airway is patent throughout. Soft tissue is seen within the vallecula likely representing encroaching lingual tonsils as well as some residual/retained secretion.
--- NOTE | 2018-05-11 18:06 | CP.PCM.PN ---
Subjective - Date & Time of Evaluation Date of Evaluation: 05/11/18 Time of Evaluation: 12:10 - Subjective Subjective: no nausea or vomiting sob worsening along iwth tissue swelling s/p solumedrol pt developed lip selling s/p icu eval andicu declined tp feels ebtter encurage complance for food no fever Objective - Vital Signs/Intake and Output Vital Signs (last 24 hours): Temp Pulse Resp BP Pulse Ox 97.9 F 101 H 20 122/77 95 05/11/18 07:00 05/11/18 16:00 05/11/18 07:00 05/11/18 07:00 05/11/18 07:00 - Medications Medications: Current Medications Albuterol/Ipratropium (Duoneb 3 Mg/0.5 Mg (3 Ml) Ud) 3 ml INH RQ4 [facility] Last Admin: 05/11/18 15:50 Dose: Not Given Aspirin (Aspirin Chewable) 81 mg PO DAILY [facility] Last Admin: 05/11/18 09:51 Dose: 81 mg Clopidogrel Bisulfate (Plavix) 75 mg PO DAILY [facility] Last Admin: 05/11/18 09:51 Dose: 75 mg Docusate Sodium (Colace) 100 mg PO DAILY [facility] Last Admin: 05/11/18 09:51 Dose: 100 mg Enoxaparin Sodium (Lovenox) 40 mg SC DAILY [facility] Last Admin: 05/11/18 09:50 Dose: 40 mg Famotidine (Pepcid) 20 mg PO DAILY [facility] Last Admin: 05/11/18 09:51 Dose: 20 mg Fluticasone/Vilanterol (Breo Ellipta 100-25 Mcg Inh) 1 puff INH RQ24 [facility] Last Admin: 05/11/18 07:36 Dose: Not Given Guaifenesin (Robitussin) 100 mg PO Q4H PRN PRN Reason: Cough Azithromycin 500 mg/ Sodium (Chloride) 250 mls @ 250 mls/hr IVPB DAILY [facility]; Protocol Last Admin: 05/11/18 09:51 Dose: 250 mls/hr Methylprednisolone (Solu-Medrol) 40 mg IVP Q8 [facility] Metoprolol Tartrate (Lopressor) 25 mg PO BIDBS [facility] Last Admin: 05/11/18 17:35 Dose: Not Given Montelukast Sodium (Singulair) 10 mg PO HS [facility] Last Admin: 05/10/18 23:52 Dose: Not Given Rosuvastatin Calcium (Crestor) 10 mg PO HS [facility] Last Admin: 05/10/18 23:51 Dose: Not Given Temazepam (Restoril) 15 mg PO HS PRN PRN Reason: Insomnia Last Admin: 05/09/18 21:29 Dose: 15 mg - Labs Labs: 05/09/18 07:50 05/09/18 07:50 PT 11.5 SECONDS (9.7-12.2) 05/06/18 17:27 INR 1.1 05/06/18 17:27 APTT 33 SECONDS (21-34) 05/06/18 17:27 - Constitutional Appears: Well - Head Exam Head Exam: ATRAUMATIC, NORMAL INSPECTION, NORMOCEPHALIC - Eye Exam Eye Exam: EOMI, Normal appearance, PERRL Pupil Exam: NORMAL ACCOMODATION, PERRL - ENT Exam ENT Exam: Mucous Membranes Moist, Normal Exam - Respiratory Exam Respiratory Exam: Decreased Breath Sounds - Cardiovascular Exam Cardiovascular Exam: REGULAR RHYTHM, +S1, +S2 - GI/Abdominal Exam GI & Abdominal Exam: Soft, Diminished Bowel Sounds - Rectal Exam Rectal Exam: Deferred Assessment and Plan (1) CAD (coronary artery disease) Status: Acute (2) GERD (gastroesophageal reflux disease) Status: Acute (3) Hypercholesteremia Status: Acute (4) Shortness of breath Status: Acute (5) Asthma Status: Acute (6) Chest pain Status: Acute (7) History of CVA (cerebrovascular accident) Status: Acute (8) Hypotension Status: Acute (9) Ischemic heart disease Status: Acute (10) Pneumonia Status: Acute (11) Weakness of limb Status: Acute - Assessment and Plan (Free Text) Plan: medications, labs and vitals reviewed aspirin chewable azithromycin breo ellipta colace crestor duoneb lopressor lovenox pepcid plavix restoril robitussin singulair solu-medrol Status post pulmonary today Awaiting phone consultations from Dr. Tavarez CT results seen and discussed with thept CT chest report mild soft tissue swelling in the upper and the lesser degree lower lips and soft tissue anterior to symphysis consistent with angioedema edematous enlargement of the tongue also CT chest revealed mild basilar atelectasis left adrenal gland hypertrophy status post house DrMarcela for lip swelling last night around 715 was called patient sleeps lip swelling is little better without on the edema of the tongue or the uvula last night patient Will discontinue Rocephin Pulmonary follow-up Cardiology follow-up Continue methylprednisolone 40 mg IV every 8 The Benadryl 25 mg p.o. every 8
[2018-05-11] MEDS: MethylPREDNISolone 40 mg Vial IVP SCH (21:18)
[2018-05-12] MEDS: MethylPREDNISolone 40 mg Vial IVP SCH (06:16)
[2018-05-12 07:30] VITALS: BP 123/83; RESP 20; TEMP 97.5; O2SAT 96
[2018-05-12 07:36] VITALS: PULSE 82
[2018-05-12] MEDS: Enoxaparin 40 mg Syringe SC SCH (09:57)
[2018-05-12] MEDS: Azithromycin 500 MG in Sodium Chloride 0.9% 250 ML IVPB SCH (10:05)
--- NOTE | 2018-05-12 11:17 | CP.PCM.PN ---
Subjective - Date & Time of Evaluation Date of Evaluation: 05/12/18 Time of Evaluation: 11:17 - Subjective Subjective: PATIENT SEEN AND EXAMINED AT THE BEDSIDE Objective - Vital Signs/Intake and Output Vital Signs (last 24 hours): Temp Pulse Resp BP Pulse Ox 97.5 F L 82 20 123/83 96 05/12/18 07:00 05/12/18 07:27 05/12/18 07:00 05/12/18 07:00 05/12/18 07:00 - Medications Medications: Current Medications Aspirin (Aspirin Chewable) 81 mg PO DAILY [facility] Last Admin: 05/12/18 09:56 Dose: 81 mg Clopidogrel Bisulfate (Plavix) 75 mg PO DAILY [facility] Last Admin: 05/12/18 09:56 Dose: 75 mg Docusate Sodium (Colace) 100 mg PO DAILY [facility] Last Admin: 05/12/18 09:56 Dose: 100 mg Enoxaparin Sodium (Lovenox) 40 mg SC DAILY [facility] Last Admin: 05/12/18 09:57 Dose: 40 mg Famotidine (Pepcid) 20 mg PO DAILY [facility] Last Admin: 05/12/18 09:56 Dose: 20 mg Fluticasone/Vilanterol (Breo Ellipta 100-25 Mcg Inh) 1 puff INH RQ24 [facility] Last Admin: 05/11/18 07:36 Dose: Not Given Guaifenesin (Robitussin) 100 mg PO Q4H PRN PRN Reason: Cough Methylprednisolone (Solu-Medrol) 40 mg IVP Q8 [facility] Last Admin: 05/12/18 06:16 Dose: 40 mg Metoprolol Tartrate (Lopressor) 25 mg PO BIDBS [facility] Last Admin: 05/12/18 06:36 Dose: 25 mg Montelukast Sodium (Singulair) 10 mg PO HS [facility] Last Admin: 05/11/18 21:22 Dose: Not Given Rosuvastatin Calcium (Crestor) 10 mg PO HS [facility] Last Admin: 05/11/18 21:19 Dose: 10 mg Temazepam (Restoril) 15 mg PO HS PRN PRN Reason: Insomnia Last Admin: 05/11/18 21:18 Dose: 15 mg - Labs Labs: 05/09/18 07:50 05/09/18 07:50 PT 11.5 SECONDS (9.7-12.2) 05/06/18 17:27 INR 1.1 05/06/18 17:27 APTT 33 SECONDS (21-34) 05/06/18 17:27 Assessment and Plan - Assessment and Plan (Free Text) Assessment: FOLLOW UP WITH Niurka SIMON IN HIS OFFICE -----CALL FOR APPOINTMENT FOLLOW UP WITH DR WEST IN HIS OFFICE IN HIS OFFICE ADDRESS YOUR BLOOD PRESSURE MED AT YOUR VISIT CONTINUE HOME MEDICATION NEW PRESCRIPTION GIVEN ASPIRIN 81 MG PO DAILY PLAVIX 75 MG PO DAILY METOPROLOL 25 MG BID PO STOP TAKING LISINOPRIL DUE ANGIO EDEMA ACTIVITY TOLERATED CALL DR Niurka SIMON OR GO TO THE EMERGENCY ROOM IF SYMPTOM RETURN OR WORSENING
--- NOTE | 2018-05-12 11:18 | CP.PCM.PN ---
Subjective - Date & Time of Evaluation Date of Evaluation: 05/12/18 Time of Evaluation: 11:18 Objective - Vital Signs/Intake and Output Vital Signs (last 24 hours): Temp Pulse Resp BP Pulse Ox 97.5 F L 82 20 123/83 96 05/12/18 07:00 05/12/18 07:27 05/12/18 07:00 05/12/18 07:00 05/12/18 07:00 - Medications Medications: Current Medications Aspirin (Aspirin Chewable) 81 mg PO DAILY [facility] Last Admin: 05/12/18 09:56 Dose: 81 mg Clopidogrel Bisulfate (Plavix) 75 mg PO DAILY [facility] Last Admin: 05/12/18 09:56 Dose: 75 mg Docusate Sodium (Colace) 100 mg PO DAILY [facility] Last Admin: 05/12/18 09:56 Dose: 100 mg Enoxaparin Sodium (Lovenox) 40 mg SC DAILY [facility] Last Admin: 05/12/18 09:57 Dose: 40 mg Famotidine (Pepcid) 20 mg PO DAILY [facility] Last Admin: 05/12/18 09:56 Dose: 20 mg Fluticasone/Vilanterol (Breo Ellipta 100-25 Mcg Inh) 1 puff INH RQ24 [facility] Last Admin: 05/11/18 07:36 Dose: Not Given Guaifenesin (Robitussin) 100 mg PO Q4H PRN PRN Reason: Cough Methylprednisolone (Solu-Medrol) 40 mg IVP Q8 [facility] Last Admin: 05/12/18 06:16 Dose: 40 mg Metoprolol Tartrate (Lopressor) 25 mg PO BIDBS [facility] Last Admin: 05/12/18 06:36 Dose: 25 mg Montelukast Sodium (Singulair) 10 mg PO HS [facility] Last Admin: 05/11/18 21:22 Dose: Not Given Rosuvastatin Calcium (Crestor) 10 mg PO HS [facility] Last Admin: 05/11/18 21:19 Dose: 10 mg Temazepam (Restoril) 15 mg PO HS PRN PRN Reason: Insomnia Last Admin: 05/11/18 21:18 Dose: 15 mg - Labs Labs: 05/09/18 07:50 05/09/18 07:50 PT 11.5 SECONDS (9.7-12.2) 05/06/18 17:27 INR 1.1 05/06/18 17:27 APTT 33 SECONDS (21-34) 05/06/18 17:27 Assessment and Plan - Assessment and Plan (Free Text) Assessment: FOLLOW UP WITH Niurka SIMON IN HIS OFFICE -----CALL FOR APPOINTMENT FOLLOW UP WITH DR WEST IN HIS OFFICE IN HIS OFFICE ADDRESS YOUR BLOOD PRESSURE MED AT YOUR VISIT CONTINUE HOME MEDICATION NEW PRESCRIPTION GIVEN ASPIRIN 81 MG PO DAILY PLAV[facility] 75 MG PO DAILY METOPROLOL 25 MG BID PO STOP TAKING LISINOPRIL DUE ANGIO EDEMA ACTIVITY TOLERATED CALL DR Niurka SIMON OR GO TO THE EMERGENCY ROOM IF SYMPTOM RETURN OR WORSENING
--- NOTE | 2018-05-12 12:50 | CP.PCM.PN ---
Subjective - Date & Time of Evaluation Date of Evaluation: 05/12/18 - Subjective Subjective: Patient was examined today at bedside patient denies nausea, vomiting, fever, diarrhea, dizziness, shortness of breath Objective - Vital Signs/Intake and Output Vital Signs (last 24 hours): Temp Pulse Resp BP Pulse Ox 97.5 F L 82 20 123/83 96 05/12/18 07:00 05/12/18 07:27 05/12/18 07:00 05/12/18 07:00 05/12/18 07:00 - Medications Medications: Current Medications Aspirin (Aspirin Chewable) 81 mg PO DAILY [facility] Last Admin: 05/12/18 09:56 Dose: 81 mg Clopidogrel Bisulfate (Plavix) 75 mg PO DAILY [facility] Last Admin: 05/12/18 09:56 Dose: 75 mg Docusate Sodium (Colace) 100 mg PO DAILY [facility] Last Admin: 05/12/18 09:56 Dose: 100 mg Enoxaparin Sodium (Lovenox) 40 mg SC DAILY [facility] Last Admin: 05/12/18 09:57 Dose: 40 mg Famotidine (Pepcid) 20 mg PO DAILY [facility] Last Admin: 05/12/18 09:56 Dose: 20 mg Fluticasone/Vilanterol (Breo Ellipta 100-25 Mcg Inh) 1 puff INH RQ24 [facility] Last Admin: 05/11/18 07:36 Dose: Not Given Guaifenesin (Robitussin) 100 mg PO Q4H PRN PRN Reason: Cough Methylprednisolone (Solu-Medrol) 40 mg IVP Q8 [facility] Last Admin: 05/12/18 06:16 Dose: 40 mg Metoprolol Tartrate (Lopressor) 25 mg PO BIDBS [facility] Last Admin: 05/12/18 06:36 Dose: 25 mg Montelukast Sodium (Singulair) 10 mg PO HS [facility] Last Admin: 05/11/18 21:22 Dose: Not Given Rosuvastatin Calcium (Crestor) 10 mg PO HS [facility] Last Admin: 05/11/18 21:19 Dose: 10 mg Temazepam (Restoril) 15 mg PO HS PRN PRN Reason: Insomnia Last Admin: 05/11/18 21:18 Dose: 15 mg - Labs Labs: 05/09/18 07:50 05/09/18 07:50 PT 11.5 SECONDS (9.7-12.2) 05/06/18 17:27 INR 1.1 05/06/18 17:27 APTT 33 SECONDS (21-34) 05/06/18 17:27 - Constitutional Appears: Well - Head Exam Head Exam: ATRAUMATIC, NORMAL INSPECTION, NORMOCEPHALIC - Eye Exam Eye Exam: EOMI, Normal appearance, PERRL Pupil Exam: NORMAL ACCOMODATION, PERRL - ENT Exam ENT Exam: Mucous Membranes Moist, Normal Exam - Neck Exam Neck Exam: Full ROM, Normal Inspection. absent: Lymphadenopathy - Respiratory Exam Respiratory Exam: Decreased Breath Sounds - Cardiovascular Exam Cardiovascular Exam: REGULAR RHYTHM, +S1, +S2 - GI/Abdominal Exam GI & Abdominal Exam: Soft, Diminished Bowel Sounds - Rectal Exam Rectal Exam: Deferred - Neurological Exam Neurological Exam: Oriented x3 Assessment and Plan (1) CAD (coronary artery disease) Status: Acute (2) GERD (gastroesophageal reflux disease) Status: Acute (3) Hypercholesteremia Status: Acute (4) Shortness of breath Status: Acute (5) Asthma Status: Acute (6) Chest pain Status: Acute (7) History of CVA (cerebrovascular accident) Status: Acute (8) Hypotension Status: Acute (9) Ischemic heart disease Status: Acute (10) Pneumonia Status: Acute (11) Weakness of limb Status: Acute - Assessment and Plan (Free Text) Plan: labs reviewed vitals reviewed medications reviewed
== END 2018-05-12 13:43 | disposition home or self-care (01) | DRG 190 ==
LOC: C.ER 16:17 → C.9E 18:17 → C.5S 18:37 → C.9E 18:42 → C.5S 18:43 → OBSVTOIN 05-08 12:07
PROVIDERS: ADMIT Internal Medicine Nephrology; ATTEND Internal Medicine Nephrology
DX: J44.0 Chronic obstructive pulmonary disease with (acute) lower respiratory infection (principal); J18.9 Pneumonia, unspecified organism; J44.1 Chronic obstructive pulmonary disease with (acute) exacerbation; I25.10 Atherosclerotic heart disease of native coronary artery without angina pectoris; I11.0 Hypertensive heart disease with heart failure; K21.9 Gastro-esophageal reflux disease without esophagitis; I50.9 Heart failure, unspecified; E78.00 Pure hypercholesterolemia, unspecified; D64.9 Anemia, unspecified; Z96.659 Presence of unspecified artificial knee joint; Z95.5 Presence of coronary angioplasty implant and graft; Z87.891 Personal history of nicotine dependence; T78.3XXA Angioneurotic edema, initial encounter; T46.4X5A Adverse effect of angiotensin-converting-enzyme inhibitors, initial encounter; E27.8 Other specified disorders of adrenal gland